=== PATIENT | female | born 1935 | race Caucasian/White ===

== ENCOUNTER → 2016-07-28 | Outpatient (CLI) | payer MEDICARE, OTHER ==
[2016-07-28 10:06] LABS: CH 31.6; CHCM 33.8; HCT 42.8 % (34.0-46.0); HDW 2.48; HGB 14.4 gm/dL (11.4-16.0); MCH 31.5 pg (25.0-35.0); MCHC 33.6 g/dL (31.0-37.0); MCV 93.9 fL (80.0-100.0); Mean Platelet Volume 7.5; RBC 4.56 m/uL (3.80-5.40); RDW 12.9 % (11.5-15.5); WBC 8.6 k/uL (3.8-10.6)
[2016-07-28 10:12] LABS: Appearance,Urine Clear (Clear); Bacteria,Urine Rare /hpf; Bilirubin,Urine Negative (Negative); Glucose,Urine (UA) Negative (Negative); Ketones,Urine 1+ (Negative); Leukocyte Esterase,Urine Negative (Negative); Mucus,Urine Rare /hpf; Nitrite,Urine Negative (Negative); PH, Urine 5.5 (5.0-8.0); Particle Count 5479; Protein,Urine 1+ (Negative); RBC,Urine 1 /hpf (0-5); Specific Gravity,Urine 1.017 (1.001-1.035); Squamous Epithelial Cell,Urine 1 /hpf (0-4); UA Billing (MACRO vs. MICRO) MICRO; WBC,Urine 2 /hpf (0-5)
[2016-07-28 12:33] LABS: Hemoglobin A1C 6.2 % (4.2-6.1)
[2016-07-28 12:50] LABS: ALT 30 U/L (9-52); AST 24 U/L (14-36); Alkaline Phosphatase 94 U/L (38-126); Anion Gap 10 mmol/L; Blood Urea Nitrogen 14 mg/dL (7-17); Calcium 9.4 mg/dL (8.4-10.2); Carbamazepine (Tegretol) <3.0 ug/mL; Carbon Dioxide 28 mmol/L (22-30); Chloride 101 mmol/L (98-107); Cholesterol 218 mg/dL (<200); Glucose 141 mg/dL (74-99); HDL Cholesterol 53 mg/dL (40-60); Non-African American GFR(MDRD) >60 (>60 ml/min/1.73 sqM); Potassium 4.7 mmol/L (3.5-5.1); Sodium 139 mmol/L (137-145); Total Bilirubin 0.6 mg/dL (0.2-1.3); Triglycerides 162 mg/dL (<150)
== END | disposition home or self-care (01) ==
LOC: LABWHC1 09:28
PROVIDERS: ATTEND Family Medicine
DX: Z00.01 Encounter for general adult medical examination with abnormal findings (principal); E11.9 Type 2 diabetes mellitus without complications; R56.9 Unspecified convulsions
CPT/HCPCS: 36415; 80053; 80061; 80156; 81001; 82043; 82306; 83036; 84443; 85027

== ENCOUNTER 2016-08-10 06:55 | Day surgery (SDC) | payer MEDICARE, OTHER ==
[2016-08-05 14:17] VITALS: BMI 25.7
[~2016-08-10 06:55] MED LIST: LACTATED RINGERS 1,000 ML IV SCH
[2016-08-10 07:41] LABS: Glucose,Whole Blood 113 mg/dL (75-99)
[2016-08-10 07:51] VITALS: RESP 16; TEMP 97.5
[2016-08-10] MEDS ORDERED: LIDOCAINE 1% INJ 10MG/ML (20 ML MDV) ONE (08:03)
[2016-08-10] MEDS ORDERED: PROPOFOL 10 MG/ML 20 ML VIAL IV ONE (08:03)
--- NOTE | 2016-08-10 08:17 | P.PCN ---
Date of Procedure: 08/10/16 Procedure(s) Performed: BRIEF HISTORY: Patient is a 80-year-old, pleasant, white female, scheduled for an upper endoscopy with possible dilation as a part of evaluation of progressive dysphagia to solids for the last several months she had an upper endoscopy in April 2015 for an esophageal foreign body impaction. Since then her symptoms have been progressively getting worse. PROCEDURE PERFORMED: Esophagogastroduodenoscopy with biopsy and dilation. PREOPERATIVE DIAGNOSIS: Progressive dysphagia to solids. IV sedation per anesthesia. PROCEDURE: After informed consent was obtained, the patient was brought into the endoscopy unit. IV conscious sedation was administered by Anesthesia under continuous monitoring. Initially the Olympus GIF-140 video endoscope was inserted into the mouth. Esophagus intubated without any difficulty. It was gradually advanced into the distal esophagus where a tight stricture was encountered and the scope could not be advanced to the cecum area. At this time I proceeded with balloon dilation using 10-12 mm TTS balloon for total of 90 seconds in a sequential fashion. Following this I was able to advance the scope into the stomach and duodenum and carefully examined. The bulb and the second part of the duodenum appeared normal. The scope at this time was withdrawn to the stomach, adequately insufflated with air, and upon careful examination, mucosa of the antrum, multiple scattered erosions and diffuse gastritis and biopsies were done from this area. The body, cardia and the fundus appeared normal. The scope was then withdrawn into the esophagus. The GE junction was located at 39 cm from the incisors. There was some oozing at the site of dilation with the superficial mucosal tear noted. The rest of the esophagus appeared normal. There were no erosions or ulcerations seen and the patient tolerated the procedure well. IMPRESSION: 1. Distal esophageal stricture status post balloon dilation using 10-12 mm TTS balloon as described above. 2. Moderate antral gastritis. RECOMMENDATIONS: The findings of this examination were discussed with the patient as well as a family. She was advised to be on a clear liquid diet today. Continue on Prilosec 20 mg daily and follow antireflux measures. She' ll be seen in office in 3-4 months.
[2016-08-10 08:47] VITALS: BP 156/88; PULSE 87
[2016-08-10 08:58] LABS: Glucose,Whole Blood 108 mg/dL (75-99)
--- NOTE | 2016-08-18 09:52 | CDI ---
Dr. Aylin Sanchez, Due to new rules about charging for conscious sedation, we noted conflicting information about type of sedation between your procedure note (stating IV CONSCIOUS sedation under Procedure heading) and Anesthesia Record which states Unconscious sedation. Because the word CONSCIOUS now has a different meaning for billing, we need you to stop dictating conscious sedation when Anesthesia is involved on your cases. FOR THIS CASE, WE NEED YOU TO DO ADDENDUM TO YOUR PROCED NOTE THAT SAYS "Unconscious" SEDATION instead of CONSCIOUS SEDATION. Thank you chago much for your assistance with this important billing compliance documentation issue. Sincerely, Wilian Jarrett--facialist Frances Veronica MBA, LEGAL STENOGRAPHER, [facility] Stave Cutting Supervisor, Tk Dominguez [phone] [facility] HOSPITALBetty
--- NOTE | 2016-09-28 11:50 | OP ---
ADDENDUM: DATE OF SERVICE: 08/10/2016 SURGEON: SAULO ORTIZ DO HANDBAG DESIGNER: PREOPERATIVE DIAGNOSIS: POSTOPERATIVE DIAGNOSIS: OPERATION: ANESTHESIA: ESTIMATED BLOOD LOSS: SPECIMENS REMOVED: COMPLICATIONS: OPERATIVE FINDINGS: DESCRIPTION OF PROCEDURE: General anesthesia was utilized instead of IV conscious sedation.
== END 2016-08-10 09:00 | disposition home or self-care (01) ==
LOC: ORWHC2ENDO 06:55
PROVIDERS: ATTEND Internal Medicine Gastroenterology
DX: K22.2 Esophageal obstruction (principal); K21.9 Gastro-esophageal reflux disease without esophagitis; K25.9 Gastric ulcer, unspecified as acute or chronic, without hemorrhage or perforation; K29.50 Unspecified chronic gastritis without bleeding; I10 Essential (primary) hypertension; E78.5 Hyperlipidemia, unspecified; I48.91 Unspecified atrial fibrillation; E11.9 Type 2 diabetes mellitus without complications; E07.9 Disorder of thyroid, unspecified; R56.9 Unspecified convulsions; Z88.0 Allergy status to penicillin; Z88.1 Allergy status to other antibiotic agents; Z88.2 Allergy status to sulfonamides; Z79.01 Long term (current) use of anticoagulants; Z79.84 Long term (current) use of oral hypoglycemic drugs; Z79.899 Other long term (current) drug therapy
CPT/HCPCS: 88305; 88342; 43239; 43249; J2001; J2704; C1726

== ENCOUNTER 2017-10-13 07:17 | Day surgery (SDC) | payer MEDICARE, OTHER ==
[2017-10-12 08:33] VITALS: BMI 26.6
[2017-10-13 07:57] LABS: Glucose,Whole Blood 96 mg/dL (75-99)
[2017-10-13 08:07] VITALS: RESP 18; TEMP 97.4
[2017-10-13] MEDS ORDERED: PROPOFOL 10 MG/ML 20 ML VIAL IV ONE (08:11)
--- NOTE | 2017-10-13 08:23 | P.PCN ---
Date of Procedure: 10/13/17 Procedure(s) Performed: BRIEF HISTORY: Patient is a 81-year-old, pleasant, white white female, scheduled for an upper endoscopy as a part of evaluation of dysphagia to solids for the last few weeks duration. She had an episode of acute for dysphagia in 2014 the patient she underwent an upper endoscopy with a balloon dilation. Presently remains on Prilosec 20 mg daily.. PROCEDURE PERFORMED: Esophagogastroduodenoscopy with balloon dilation. PREOPERATIVE DIAGNOSIS: History of esophageal stricture/progressive dysphagia to solids. IV sedation per anesthesia. PROCEDURE: After informed consent was obtained, the patient was brought into the endoscopy unit. IV sedation was administered by Anesthesia under continuous monitoring. Initially the Olympus GIF-140 video endoscope was inserted into the mouth. Esophagus intubated without any difficulty. It was gradually advanced into the distal esophagus with a was a esophagus which are identified. stomach and duodenum and carefully examined. The bulb and the second part of the duodenum appeared normal. The scope at this time was withdrawn to the stomach, adequately insufflated with air, and upon careful examination, mucosa of the antrum, body, cardia and the fundus appeared normal. The scope was then withdrawn into the esophagus. Small hiatal hernia noted. The GE junction was located at 39 cm from the incisors. There was a circumferential stricture noted in the distal esophagus at the GE junction and this was dilated using 10- 12 mm balloon for total of 90 seconds in a sequential fashion.. Dilation there was a superficial mucosal tear with some oozing identified at the site of dilation. The rest of the esophagus appeared normal. There were no erosions or ulcerations seen and the patient tolerated the procedure well. IMPRESSION: 1. Distal esophageal stricture status post balloon dilation using 10-12 mm TTS balloon as described above. 2. Small Hiatal hernia.. RECOMMENDATIONS: The findings of this examination were discussed with the patient as well as her family. She will remain on a clear liquid diet today. She will continue with Prilosec 20 mg daily and follow antireflux measures. She 'll be seen in office in 6 weeks..
[2017-10-13 08:43] VITALS: PULSE 60
[2017-10-13 08:44] VITALS: BP 130/63
== END 2017-10-13 09:15 | disposition home or self-care (01) ==
LOC: ORWHC2ENDO 07:17
PROVIDERS: ATTEND Internal Medicine Gastroenterology
DX: K22.2 Esophageal obstruction (principal); K44.9 Diaphragmatic hernia without obstruction or gangrene; I10 Essential (primary) hypertension; E78.5 Hyperlipidemia, unspecified; I48.91 Unspecified atrial fibrillation; E11.9 Type 2 diabetes mellitus without complications; K21.9 Gastro-esophageal reflux disease without esophagitis; R56.9 Unspecified convulsions; Z79.01 Long term (current) use of anticoagulants; Z79.84 Long term (current) use of oral hypoglycemic drugs; Z79.899 Other long term (current) drug therapy; Z88.1 Allergy status to other antibiotic agents; Z88.0 Allergy status to penicillin; Z88.2 Allergy status to sulfonamides; Z88.8 Allergy status to other drugs, medicaments and biological substances
CPT/HCPCS: 43249; J2704; C1726

== ENCOUNTER 2018-05-04 07:31 | Observation (INO) | payer MEDICARE, OTHER ==
[2018-05-04] MEDS ORDERED: SODIUM CHLORIDE 0.9% 1,000 ML IV STA (07:42)
[2018-05-04] MEDS ORDERED: ASPIRIN 81 MG PO STA (07:42)
[2018-05-04] MEDS ORDERED: NITROGLYCERIN OINT 1 INCH/GM PACKET TOPICAL STA (07:42)
--- NOTE | 2018-05-04 07:46 | ED ---
General Adult HPI - General Chief complaint: Chest Pain Stated complaint: CHest pain Time Seen by Provider: 05/04/18 07:34 Source: patient, RN notes reviewed Mode of arrival: EMS Limitations: no limitations - History of Present Illness Initial comments: Patient is a pleasant 82-year-old female presenting to the emergency Department with chest discomfort. Onset was this morning. Symptoms have improved and are now near resolved. Discomfort is only mild at this point. Patient states discomfort felt like pressure. No radiation. There is mild dyspnea. No nausea or diaphoresis. No history of similar symptoms previously. - Related Data Home Medications Medication Instructions Recorded Confirmed Apixaban [Eliquis] 2.5 mg PO BID 10/26/13 05/04/18 Bimatoprost [Lumigan .01% Ophth 5 ml BOTH EYES HS 10/26/13 05/04/18 Soln] Brimonidine Tartrate/Timolol 5 ml BOTH EYES BID 10/26/13 05/04/18 [Combigan 0.2%/0.5% Ophth Soln] LORazepam [Ativan] 1 mg PO DAILY PRN 10/26/13 05/04/18 Lisinopril [Prinivil] 10 mg PO QAM 10/26/13 05/04/18 metFORMIN HCL [Glucophage] 500 mg PO BID 10/26/13 05/04/18 amLODIPine [Norvasc] 5 mg PO QAM 11/26/14 05/04/18 lamoTRIgine [LaMICtal] 200 mg PO BID 11/26/14 05/04/18 Nadolol 20 mg PO HS 01/01/15 05/04/18 Pravastatin Sodium [Pravachol] 40 mg PO QAM 01/01/15 05/04/18 Calcium Carbonate [Calcium] 600 mg PO DAILY 08/05/16 05/04/18 Cholecalciferol [Vitamin D3] 1,000 unit PO DAILY 08/05/16 05/04/18 OXcarbazepine [Trileptal] 150 mg PO BID 10/12/17 05/04/18 Sertraline [Zoloft] 100 mg PO DAILY 05/04/18 05/04/18 Previous Rx's Medication Instructions Recorded Omeprazole [PriLOSEC] 20 mg PO AC-BRKFST #30 cap 05/11/15 Allergies Allergy/AdvReac Type Severity Reaction Status Date / Time ciprofloxacin [From Cipro] Allergy Unknown Verified 05/04/18 08:16 ciprofloxacin HCl Allergy Unknown Verified 05/04/18 08:16 [From Cipro] metoprolol Allergy Unknown Verified 05/04/18 08:16 Penicillins Allergy Unknown Verified 05/04/18 08:16 Sulfa (Sulfonamide Allergy Unknown Verified 05/04/18 08:16 Antibiotics) Review of Systems ROS Statement: Those systems with pertinent positive or pertinent negative responses have been documented in the HPI. ROS Other: All systems not noted in ROS Statement are negative. Constitutional: Denies: fever Eyes: Denies: eye pain ENT: Denies: ear pain Respiratory: Denies: cough Cardiovascular: Reports: chest pain Endocrine: Denies: fatigue Gastrointestinal: Denies: abdominal pain Genitourinary: Denies: dysuria Musculoskeletal: Denies: back pain Skin: Denies: rash Neurological: Denies: weakness Past Medical History Past Medical History: Atrial Fibrillation, Chest Pain / Angina, Diabetes Mellitus, GERD/Reflux, Hyperlipidemia, Hypertension, Seizure Disorder Additional Past Medical History / Comment(s): Glaucoma. LAST SEIZURE JUN 2016, SEIZURES MANIFEST IN HER SLEEP AND SHE KNOWS WHEN SHE HAS HAD ONE SHE CHEWS THE SIDE OF HER MOUTH, ETIOLOGY UNKNOWN. HX dysphagia History of Any Multi-Drug Resistant Organisms: None Reported Past Surgical History: Cholecystectomy, Hysterectomy Additional Past Surgical History / Comment(s): Thyroid nodules removed. АНДРЕЙ cataract. RIGHT ANKLE ORIF. EGD WITH DILATION MULT TIMES Past Anesthesia/Blood Transfusion Reactions: No Reported Reaction Past Psychological History: Anxiety, Depression Smoking Status: Never smoker Past Alcohol Use History: None Reported Past Drug Use History: None Reported - Past Family History Brother(s) Family Medical History: Cancer Sister(s) Family Medical History: Cancer Additional Family Medical History / Comment(s): MULTIPLE SISTERS WITH CA Father Family Medical History: Diabetes Mellitus Additional Family Medical History / Comment(s): leg amp Mother Family Medical History: AFIB General Exam Limitations: no limitations General appearance: alert, in no apparent distress Head exam: Present: atraumatic Eye exam: Present: normal appearance Neck exam: Present: normal inspection Respiratory exam: Present: normal lung sounds bilaterally. Absent: chest wall tenderness Cardiovascular Exam: Present: regular rate, irregular rhythm Expanded Peripheral pulses: 2+: Radial (R), Radial (L), Dorsalis Pedis (R), Dorsalis Pedis (L) GI/Abdominal exam: Present: soft. Absent: tenderness Extremities exam: Present: normal inspection. Absent: pedal edema, calf tenderness Neurological exam: Present: alert Psychiatric exam: Present: normal affect, normal mood Skin exam: Present: normal color Course Vital Signs 05/04/18 05/04/18 07:33 07:55 Temperature 98.5 F Pulse Rate 67 Pulse Rate [ 81 Right Supine Pulse Oximetery ] Respiratory 20 Rate Blood Pressure 170/85 O2 Sat by Pulse 96 Oximetry EKG Findings - EKG Comments: EKG Findings:: A. fib with a rate of 87. QRS 92. QT 292. QTC 471. Normal axis. Normal QRS. Nonspecific ST-T. Medical Decision Making - Medical Decision Making Patient reevaluated and resting comfortably in bed. Symptoms have near resolved. Patient updated on results and plan. Dr. Ledesma has been paged for Dr. Hoyt. - Lab Data Result diagrams: 05/04/18 07:48 05/04/18 07:48 Lab Results 05/04/18 05/04/18 05/04/18 Range/Units 07:48 07:48 07:48 WBC 14.4 H (3.8-10.6) k/uL RBC 4.74 (3.80-5.40) m/uL Hgb 14.3 (11.4-16.0) gm/dL Hct 43.2 (34.0-46.0) % MCV 91.2 (80.0-100.0) fL MCH 30.2 (25.0-35.0) pg MCHC 33.1 (31.0-37.0) g/dL RDW 13.3 (11.5-15.5) % Plt Count 312 (150-450) k/uL Neutrophils % 85 % Lymphocytes % 9 % Monocytes % 3 % Eosinophils % 1 % Basophils % 0 % Neutrophils # 12.3 H (1.3-7.7) k/uL Lymphocytes # 1.3 (1.0-4.8) k/uL Monocytes # 0.5 (0-1.0) k/uL Eosinophils # 0.2 (0-0.7) k/uL Basophils # 0.0 (0-0.2) k/uL PT (9.0-12.0) sec INR (<1.2) APTT (22.0-30.0) sec Sodium 140 (137-145) mmol/L Potassium 4.4 (3.5-5.1) mmol/L Chloride 102 (98-107) mmol/L Carbon Dioxide 27 (22-30) mmol/L Anion Gap 11 mmol/L BUN 13 (7-17) mg/dL Creatinine 0.66 (0.52-1.04) mg/dL Est GFR (CKD-EPI)AfAm >90 (>60 ml/min/1.73 sqM) Est GFR (CKD-EPI)NonAf 82 (>60 ml/min/1.73 sqM) Glucose 179 H (74-99) mg/dL Calcium 9.5 (8.4-10.2) mg/dL Magnesium 2.1 (1.6-2.3) mg/dL Total Bilirubin 0.6 (0.2-1.3) mg/dL AST 23 (14-36) U/L ALT 25 (9-52) U/L Alkaline Phosphatase 116 (38-126) U/L Total Creatine Kinase 28 L (30-135) U/L CK-MB (CK-2) 0.4 (0.0-2.4) ng/mL CK-MB (CK-2) Rel Index 1.4 Troponin I <0.012 (0.000-0.034) ng/mL Total Protein 7.4 (6.3-8.2) g/dL Albumin 4.4 (3.5-5.0) g/dL 05/04/18 Range/Units 07:48 WBC (3.8-10.6) k/uL RBC (3.80-5.40) m/uL Hgb (11.4-16.0) gm/dL Hct (34.0-46.0) % MCV (80.0-100.0) fL MCH (25.0-35.0) pg MCHC (31.0-37.0) g/dL RDW (11.5-15.5) % Plt Count (150-450) k/uL Neutrophils % % Lymphocytes % % Monocytes % % Eosinophils % % Basophils % % Neutrophils # (1.3-7.7) k/uL Lymphocytes # (1.0-4.8) k/uL Monocytes # (0-1.0) k/uL Eosinophils # (0-0.7) k/uL Basophils # (0-0.2) k/uL PT 9.9 (9.0-12.0) sec INR 0.9 (<1.2) APTT 24.6 (22.0-30.0) sec Sodium (137-145) mmol/L Potassium (3.5-5.1) mmol/L Chloride (98-107) mmol/L Carbon Dioxide (22-30) mmol/L Anion Gap mmol/L BUN (7-17) mg/dL Creatinine (0.52-1.04) mg/dL Est GFR (CKD-EPI)AfAm (>60 ml/min/1.73 sqM) Est GFR (CKD-EPI)NonAf (>60 ml/min/1.73 sqM) Glucose (74-99) mg/dL Calcium (8.4-10.2) mg/dL Magnesium (1.6-2.3) mg/dL Total Bilirubin (0.2-1.3) mg/dL AST (14-36) U/L ALT (9-52) U/L Alkaline Phosphatase (38-126) U/L Total Creatine Kinase (30-135) U/L CK-MB (CK-2) (0.0-2.4) ng/mL CK-MB (CK-2) Rel Index Troponin I (0.000-0.034) ng/mL Total Protein (6.3-8.2) g/dL Albumin (3.5-5.0) g/dL Disposition Clinical Impression: Chest pain Disposition: ADMITTED IP TO THIS HOSP Is patient prescribed a controlled substance at d/c from ED?: No Referrals: Andry Hoyt DO [Primary Care Provider] - 1-2 days Decision Time: 09:42
[2018-05-04 08:09] LABS: Basophils % (A) 0 %; Eosinophils # (A) 0.2 k/uL (0-0.7); Eosinophils % (A) 1 %; HCT 43.2 % (34.0-46.0); HGB 14.3 gm/dL (11.4-16.0); Lymphocytes # (A) 1.3 k/uL (1.0-4.8); Lymphocytes % (A) 9 %; MCH 30.2 pg (25.0-35.0); MCHC 33.1 g/dL (31.0-37.0); MCV 91.2 fL (80.0-100.0); Mean Platelet Volume 7.4; Monocytes # (A) 0.5 k/uL (0-1.0); Monocytes % (A) 3 %; Neutrophils # (A) 12.3 k/uL (1.3-7.7); Neutrophils % (A) 85 %; Platelet Count 312 k/uL (150-450); RBC 4.74 m/uL (3.80-5.40); RDW 13.3 % (11.5-15.5); WBC 14.4 k/uL (3.8-10.6)
[2018-05-04 08:20] LABS: INR 0.9 (<1.2); Partial Thromboplastin Time 24.6 sec (22.0-30.0); Prothrombin Time 9.9 sec (9.0-12.0)
[2018-05-04 08:21] LABS: ALT 25 U/L (9-52); AST 23 U/L (14-36); Albumin 4.4 g/dL (3.5-5.0); Alkaline Phosphatase 116 U/L (38-126); Anion Gap 11 mmol/L; Blood Urea Nitrogen 13 mg/dL (7-17); Calcium 9.5 mg/dL (8.4-10.2); Carbon Dioxide 27 mmol/L (22-30); Chloride 102 mmol/L (98-107); Glucose 179 mg/dL (74-99); Magnesium 2.1 mg/dL (1.6-2.3); Potassium 4.4 mmol/L (3.5-5.1); Sodium 140 mmol/L (137-145); Total Bilirubin 0.6 mg/dL (0.2-1.3); Total Protein 7.4 g/dL (6.3-8.2)
--- NOTE | 2018-05-04 08:30 | XR ---
EXAMINATION TYPE: XR chest 2V DATE OF EXAM: 05/04/2018 COMPARISON: Prior chest x-ray 05/11/2015 HISTORY: Chest pain TECHNIQUE: Frontal and lateral views of the chest are obtained. FINDINGS: Heart is enlarged and stable, may be accentuated by rotation. There are overlying cardiac leads. No evident airspace disease, pneumothorax, or pleural effusion. Pulmonary vascularity and clare are unchanged. IMPRESSION: Stable cardiomegaly.
[2018-05-04 08:33] LABS: Creatine Kinase 28 U/L (30-135)
[2018-05-04 08:46] LABS: Creatine Kinase MB 0.4 ng/mL (0.0-2.4); Troponin I <0.012 ng/mL (0.000-0.034)
[2018-05-04] MEDS ORDERED: NITROGLYCERIN SL TABS 0.4 MG TAB SUBLINGUAL PRN (09:42)
[2018-05-04] MEDS ORDERED: LORazepam 1 MG TAB PO PRN (11:07)
[2018-05-04] MEDS ORDERED: OXcarbazepine 150 MG TAB PO SCH (11:15)
[2018-05-04] MEDS ORDERED: TIMOLOL 0.5% OPHTH DROPS 5 ML BTL BOTH EYES SCH (11:15)
[2018-05-04] MEDS ORDERED: BRIMONIDINE TARTRATE 0.2% DROPS 5 ML BTL BOTH EYES SCH (11:15)
[2018-05-04] MEDS ORDERED: LISINOPRIL 10 MG TAB PO SCH (11:15)
[2018-05-04] MEDS ORDERED: PRAVASTATIN SODIUM 40 MG TAB PO SCH (11:15)
[2018-05-04] MEDS ORDERED: PANTOPRAZOLE 40 MG TABLET PO SCH (11:15)
[2018-05-04] MEDS ORDERED: lamoTRIgine 100 MG TAB PO SCH (11:15)
[2018-05-04] MEDS ORDERED: metFORMIN 500 MG TAB PO SCH (11:15)
[2018-05-04] MEDS ORDERED: SERTRALINE 100 MG TAB PO SCH (11:15)
[2018-05-04] MEDS ORDERED: amLODIPine 5 MG TAB PO SCH (11:15)
[2018-05-04] MEDS ORDERED: APIXABAN 2.5 MG TABLET PO SCH (11:15)
[2018-05-04] MEDS ORDERED: NITROGLYCERIN OINT 1 INCH/GM PACKET TOPICAL SCH (12:00)
[2018-05-04 12:25] LABS: Creatine Kinase 25 U/L (30-135)
[2018-05-04 12:36] LABS: Creatine Kinase MB 0.3 ng/mL (0.0-2.4); Troponin I <0.012 ng/mL (0.000-0.034)
--- NOTE | 2018-05-04 14:44 | P.CRDCN ---
History of Present Illness History of present illness: This is a pleasant 82-year-old female past medical history significant for chronic atrial fibrillation on termite inspector anticoagulation, hypertension, dyslipidemia and diabetes mellitus. She underwent cardiac catheterization in 2007 that showed no evidence of obstructive disease. She follows with Dr. Mcclure in the office. We have been asked to see her in consultation for chest pain. She states she woke up around 4:30 this morning with a discomfort in the midsternal region no radiation to the arm, back, neck or jaw discomfort is described as a pressure-like sensation associated with very mild shortness of breath and she denies palpitations, dizziness, nausea, vomiting or diaphoresis. The symptoms resolved after about 15 minutes. Upon arrival to the emergency department she was noted to be in atrial fibrillation with controlled ventricular response heart rate was 87. Chest x-ray obtained is negative for an acute cardiopulmonary process. She is seen and examined resting comfortably in bed with her daughter at the bedside. She states she has an appointment coming up with Dr. Mcclure June. She states she did go to physical therapy yesterday for the first time feels as though she may have overdone it. Laboratory data reviewed, WBC 14.4, hemoglobin 14.3, platelets 312, sodium 140, potassium 4.4, creatinine 0.66, magnesium 2.1, cardiac enzymes negative 2. Current cardiac medications include nadolol 20 mg daily, amlodipine 5 mg daily, pravastatin 40 mg daily, lisinopril 10 mg daily, Eliquis 2.5 mg twice a day. Most recent echocardiogram obtained in the office May 2016 reveals preserved left ventricular systolic function with ejection fraction 55%, dilated left atrium and dilated right atrium. Most recent stress test performed in the office in 2013 with a Lexiscan stress test was negative for reversible cardiac ischemia. At the time of my exam: CONSTITUTIONAL: Denies fever. Denies chills. EYES: Denies blurred vision. Denies vision changes. Denies eye pain. EARS, NOSE, MOUTH & THROAT: Denies headache. Denies sore throat. Denies ear pain. CARDIOVASCULAR: Denies chest pain. Denies shortness of breath. Denies orthopnea. Denies PND. Denies palpitations. RESPIRATORY: Denies cough. GASTROINTESTINAL: Denies abdominal pain. Denies diarrhea. Denies constipation. Denies nausea. Denies vomiting. MUSCULOSKELETAL: Denies myalgias. INTEGUMENTARY: Denies pruitis. Denies rash. NEUROLOGIC: Denies numbness. Denies tingling. Denies weakness. PSYCHIATRIC: Denies anxiety. Denies depression. ENDOCRINE: Denies fatigue. Denies weight change. Denies polydipsia. Denies polyurina. GENITOURINARY: Denies burning, hematuria or urgency with micturation. HEMATOLOGIC: Denies history of anemia. Denies bleeding. Blood pressure 120/63 heart rate 61 afebrile maintaining oxygen saturation on room air GENERAL: This is a 82-year-old female in no apparent distress at the time of my examination. HEENT: Head is atraumatic, normocephalic. Pupils are equal, round. Sclerae anicteric. Conjunctivae are clear. Mucous membranes of the mouth are moist. Neck is supple. There is no jugular venous distention. No carotid bruit is heard. LUNGS: Clear to auscultation no wheezes, rales or rhonchi. No chest wall tenderness is noted on palpation or with deep breathing. HEART: Irregular rate and rhythm without murmurs, rubs or gallops. S1 and S2 heard. ABDOMEN: Soft, nontender. Bowel sounds are heard. No organomegaly noted. EXTREMITIES: No evidence of peripheral edema and no calf tenderness noted. VASCULAR: Radial and dorsalis pedis pulses palpated, no evidence of clubbing. NEUROLOGIC: Patient is awake, alert and oriented x3. ASSESSMENT Chest pain, atypical. An acute coronary event has been ruled out with no EKG evidence of ischemia and negative cardiac enzymes. Hypertension Dyslipidemia Chronic persistent atrial fibrillation on long-term anticoagulation with controlled ventricular response Diabetes mellitus Leukocytosis PLAN Obtain 2-D echocardiogram and Doppler study to assess cardiac structure and function. Increase activity and assess her further symptoms of chest discomfort. Symptoms most likely muscular related to new physical therapy. If no further symptoms of chest discomfort she is stable from a cardiac perspective. We recommended to the patient and her daughter that she see Dr. Mcclure next week. Thank you kindly for this consultation. Nurse Practitioner note has been reviewed, I agree with a documented findings and plan of care. Patient was seen and examined. Past Medical History Past Medical History: Atrial Fibrillation, Chest Pain / Angina, Diabetes Mellitus, Eye Disorder, GERD/Reflux, Hyperlipidemia, Hypertension, Seizure Disorder Additional Past Medical History / Comment(s): NIDDM type II, neuropathy bilateral feet, R arm numbness thought d/t cervical nerve pinched, dysphagia- not currently a problem, esophageal stricture, food impaction in esophagus, hiatal hernia, seizures in her sleep and bites inside of her cheeks-pt believes she had a seizure 05/03/18, bilateral glaucoma. History of Any Multi-Drug Resistant Organisms: None Reported Past Surgical History: Cholecystectomy, Hysterectomy, Orthopedic Surgery Additional Past Surgical History / Comment(s): EGD and multiple dilations, EGD with foreign body removed, colonoscopy, hemorrhoidectomy, bilateral cataract removal/lens implants, thyroid nodules removed, R ankle ORIF. Past Anesthesia/Blood Transfusion Reactions: No Reported Reaction Past Psychological History: Anxiety, Depression Additional Psychological History / Comment(s): PT LIVES AT HOME WITH DAUGHTER VALERI & SON-IN LAW. SHE HAS A CANE AND A WALKER. SHE NO LONGER DRIVES D/T SEIZURES, HER ETHAN TAKES HER TO APPTS. Smoking Status: Never smoker Past Alcohol Use History: None Reported Past Drug Use History: None Reported - Past Family History Brother(s) Family Medical History: Cancer Sister(s) Family Medical History: Cancer Additional Family Medical History / Comment(s): MULTIPLE SISTERS WITH CA Father Family Medical History: Diabetes Mellitus Additional Family Medical History / Comment(s): leg amp Mother Family Medical History: AFIB Medications and Allergies Home Medications Medication Instructions Recorded Confirmed Type Apixaban [Eliquis] 2.5 mg PO BID 10/26/13 05/04/18 History Bimatoprost [Lumigan .01% Ophth 5 ml BOTH EYES HS 10/26/13 05/04/18 History Soln] Brimonidine Tartrate/Timolol 5 ml BOTH EYES BID 10/26/13 05/04/18 History [Combigan 0.2%/0.5% Ophth Soln] LORazepam [Ativan] 1 mg PO DAILY PRN 10/26/13 05/04/18 History Lisinopril [Prinivil] 10 mg PO QAM 10/26/13 05/04/18 History metFORMIN HCL [Glucophage] 500 mg PO BID 10/26/13 05/04/18 History amLODIPine [Norvasc] 5 mg PO QAM 11/26/14 05/04/18 History lamoTRIgine [LaMICtal] 200 mg PO BID 11/26/14 05/04/18 History Nadolol 20 mg PO HS 01/01/15 05/04/18 History Pravastatin Sodium [Pravachol] 40 mg PO QAM 01/01/15 05/04/18 History Omeprazole [PriLOSEC] 20 mg PO AC-BRKFST #30 cap 05/11/15 05/04/18 Rx Calcium Carbonate [Calcium] 600 mg PO DAILY 08/05/16 05/04/18 History Cholecalciferol [Vitamin D3] 1,000 unit PO DAILY 08/05/16 05/04/18 History OXcarbazepine [Trileptal] 150 mg PO BID 10/12/17 05/04/18 History Sertraline [Zoloft] 100 mg PO DAILY 05/04/18 05/04/18 History Allergies Allergy/AdvReac Type Severity Reaction Status Date / Time ciprofloxacin [From Cipro] Allergy Unknown Verified 05/04/18 08:16 ciprofloxacin HCl Allergy Unknown Verified 05/04/18 08:16 [From Cipro] metoprolol Allergy Unknown Verified 05/04/18 08:16 Penicillins Allergy Unknown Verified 05/04/18 08:16 Sulfa (Sulfonamide Allergy Unknown Verified 05/04/18 08:16 Antibiotics) Physical Exam Vitals: Vital Signs Temp Pulse Pulse Resp BP Pulse Ox 05/04/18 14:00 61 20 120/63 98 05/04/18 13:00 64 24 136/83 98 05/04/18 12:00 68 16 129/80 96 05/04/18 11:00 68 11 L 151/85 98 05/04/18 10:00 60 18 130/73 98 05/04/18 09:00 59 L 17 126/83 97 05/04/18 08:00 74 14 150/93 97 05/04/18 07:55 81 05/04/18 07:33 98.5 F 67 20 170/85 96 Intake and Output 05/03/18 05/04/18 05/04/18 22:59 06:59 14:59 Other: Weight 70.76 kg Results 05/04/18 07:48 05/04/18 07:48 Cardiac Enzymes 05/04/18 05/04/18 05/04/18 Range/Units 07:48 07:48 11:26 AST 23 (14-36) U/L CK-MB (CK-2) 0.4 0.3 (0.0-2.4) ng/mL Troponin I <0.012 <0.012 (0.000-0.034) ng/mL Coagulation 05/04/18 Range/Units 07:48 PT 9.9 (9.0-12.0) sec APTT 24.6 (22.0-30.0) sec CBC 05/04/18 Range/Units 07:48 WBC 14.4 H (3.8-10.6) k/uL RBC 4.74 (3.80-5.40) m/uL Hgb 14.3 (11.4-16.0) gm/dL Hct 43.2 (34.0-46.0) % Plt Count 312 (150-450) k/uL Comprehensive Metabolic Panel 05/04/18 Range/Units 07:48 Sodium 140 (137-145) mmol/L Potassium 4.4 (3.5-5.1) mmol/L Chloride 102 (98-107) mmol/L Carbon Dioxide 27 (22-30) mmol/L BUN 13 (7-17) mg/dL Creatinine 0.66 (0.52-1.04) mg/dL Glucose 179 H (74-99) mg/dL Calcium 9.5 (8.4-10.2) mg/dL AST 23 (14-36) U/L ALT 25 (9-52) U/L Alkaline Phosphatase 116 (38-126) U/L Total Protein 7.4 (6.3-8.2) g/dL Albumin 4.4 (3.5-5.0) g/dL Current Medications Generic Name Dose Route Start Last Admin Trade Name Freq PRN Reason Stop Dose Admin Amlodipine Besylate 5 mg 05/04/18 11:15 05/04/18 11:56 Norvasc PO 5 mg QAM LEONARD Administration Apixaban 2.5 mg 05/04/18 11:15 05/04/18 11:57 Eliquis PO 2.5 mg BID LEONARD Administration Aspirin 325 mg 05/05/18 09:00 Aspirin PO DAILY [facility] Brimonidine Tartrate 1 drops 05/04/18 11:15 05/04/18 11:58 Alphagan P 0.2% Ophth Soln BOTH EYES 1 drops BID LEONARD Administration Sodium Chloride 1,000 mls @ 100 mls/hr 05/04/18 07:42 05/04/18 07:51 Saline 0.9% IV 05/04/18 17:41 100 mls/hr .Q10H STA Administration Lamotrigine 200 mg 05/04/18 11:15 05/04/18 11:56 Lamictal PO 200 mg BID LEONARD Administration Latanoprost 1 drops 05/04/18 21:00 Xalatan 0.005% BOTH EYES HS LEONARD Lisinopril 10 mg 05/04/18 11:15 05/04/18 11:57 Zestril PO 10 mg QAM LEONARD Administration Lorazepam 1 mg 05/04/18 11:07 Ativan PO DAILY PRN Anxiety Metformin HCl 500 mg 05/04/18 11:15 05/04/18 11:56 Glucophage PO 500 mg BID LEONARD Administration Nadolol 20 mg 05/04/18 21:00 Corgard PO HS LEONARD Nitroglycerin 1 inch 05/04/18 12:00 05/04/18 11:58 Nitro-Bid Oint TOPICAL 1 inch Q6HR LEONARD Administration Nitroglycerin 0.4 mg 05/04/18 09:42 Nitrostat SUBLINGUAL Q5M PRN Chest Pain Oxcarbazepine 150 mg 05/04/18 11:15 05/04/18 11:57 Trileptal PO 150 mg BID LEONARD Administration Pantoprazole Sodium 40 mg 05/04/18 11:15 05/04/18 11:56 Protonix PO 40 mg AC-BRKFST LEONARD Administration Pravastatin Sodium 40 mg 05/04/18 11:15 05/04/18 11:57 Pravachol PO 40 mg QAM LEONARD Administration Sertraline HCl 100 mg 05/04/18 11:15 05/04/18 11:57 Zoloft PO 100 mg DAILY LEONARD Administration Timolol Maleate 1 drops 05/04/18 11:15 05/04/18 11:58 Timoptic BOTH EYES 1 drops BID LEONARD Administration Intake and Output 05/03/18 05/04/18 05/04/18 22:59 06:59 14:59 Other: Weight 70.76 kg Patient Weight 05/05/18 06:59 Weight 70.76 kg 05/04/18 07:48 05/04/18 07:48
[2018-05-04 16:01] VITALS: BP 149/75; PULSE 63; RESP 18; TEMP 97.5
--- NOTE | 2018-05-04 17:20 | CT ---
EXAMINATION TYPE: CT chest angio for PE DATE OF EXAM: 05/04/2018 COMPARISON: None HISTORY: Chest heaviness, history of Afib. CT DLP: 243.8 mGycm Automated exposure control for dose reduction was used. CONTRAST: CT Chest for pulmonary embolism performed with with IV Contrast, patient injected with 100 mL of Isov ue 370. FINDINGS: There are 3-D post processed images. This 5 mm calcified granuloma in the right paraspinal right upper lobe. There is faint 5 mm low-densi ty nodule lateral left upper lobe. There is no evidence of a pulmonary mass. There is minimal reticul ar density at the posterior lung bases consistent with scarring and subsegmental atelectasis. There i s no pericardial effusion. There is no pleural effusion. Heart is slightly enlarged. Thoracic aorta s hows no evidence of aneurysm or dissection. There is no mediastinal adenopathy. There are no hilar ma sses. There is some spurring in the thoracic spine. There is old 10% depression superior endplate of T4 and T3 vertebral bodies.. I see no bony destructive process. There is normal contrast opacification of the pulmonary arteries. There are no filling defects. IMPRESSION: Cardiomegaly. Minimal scarring or subsegmental atelectasis at the lung bases. No evidence of pulmonar y embolism.
--- NOTE | 2018-05-04 17:49 | ECHOF ---
Referral Reason:cp MEASUREMENTS -------- HEIGHT: 165.1 cm WEIGHT: 70.8 kg BP: 129/80 RVIDd: 2.6 cm (< 3.3) IVSd: 1.2 cm (0.6 - 1.1) LVIDd: 3.6 cm (3.9 - 5.3) LVPWd: 1.5 cm (0.6 - 1.1) IVSs: 1.5 cm LVIDs: 3.1 cm LVPWs: 1.5 cm LA Diam: 4.8 cm (2.7 - 3.8) LAESV Index (A-L): 40.00 ml/m AV Cusp: 1.5 cm (1.5 - 2.6) MV EXCURSION: 19.089 mm (> 18.000) MV EF SLOPE: 125 mm/s (70 - 150) EPSS: 0.3 cm RAP: 5.00 mmHg RVSP: 24.33 mmHg FINDINGS -------- Atrial fibrillation. This was a technically adequate study. The left ventricular size is normal. Left ventricular wall thickness is normal. Overall left vent ricular systolic function is low-normal with, an EF between 50 - 55 %. The right ventricle is normal in size. LA is severely dilated >40 ml/m2 The right atrial size is normal. There is mild aortic valve sclerosis. There is no evidence of aortic regurgitation. Mild mitral annular calcification present. Mild mitral regurgitation is present. Mild tricuspid regurgitation present. Right ventricular systolic pressure is normal at < 35 mmHg. The right ventricular systolic pressure, as measured by Doppler, is 24.33mmHg. Trace/mild (physiologic) pulmonic regurgitation. The aortic root size is normal. There is a trivial pericardial effusion present. CONCLUSIONS -------- 1. Atrial fibrillation. 2. The left ventricular size is normal. 3. Left ventricular wall thickness is normal. 4. Overall left ventricular systolic function is low-normal with, an EF between 50 - 55 %. 5. LA is severely dilated >40 ml/m2 6. The right atrial size is normal. 7. There is mild aortic valve sclerosis. 8. Mild mitral annular calcification present. 9. Mild mitral regurgitation is present. 10. Mild tricuspid regurgitation present. 11. Right ventricular systolic pressure is normal at < 35 mmHg. 12. Trace/mild (physiologic) pulmonic regurgitation. 13. The aortic root size is normal. 14. There is a trivial pericardial effusion present. RETORT FURNACE HELPER: Sadie Lam RDCS
[2018-05-04] MEDS ORDERED: NADOLOL 20 MG TAB PO SCH (21:00)
[2018-05-04] MEDS ORDERED: LATANOPROST 0.005% OPHTH DROPS 2.5 ML BTL BOTH EYES SCH (21:00)
--- NOTE | 2018-05-04 22:39 | DS ---
DISCHARGE SUMMARY HISTORY AND PHYSICAL/DISCHARGE SUMMARY: DATE OF ADMISSION: May 04, 2018. DATE OF DISCHARGE: May 04. PRESENTING COMPLAINT: Chest heaviness. HISTORY OF PRESENTING COMPLAINT: A very pleasant 82-year-old patient of Dr. Hoyt. Chronic stable medical conditions include atrial fibrillation, diabetes with peripheral neuropathy, hyperlipidemia, hypertension, seizure disorder, hiatal hernia. The patient is present with her daughter. The patient presented this morning feeling short of breath and with chest heaviness. Did not radiate to the neck or arm. No perspiration but was dizzy. No fever, chills. No cough and presented for the same for a cardiac workup. Admitted to the ER. The patient had a negative stress test about a year ago. When I saw this patient later this afternoon the symptoms were feeling better. Denies any history of coronary artery disease. REVIEW OF SYSTEMS: CONSTITUTIONAL: None. HEENT: As above. RESPIRATORY: As above. CARDIOVASCULAR: As above. GASTROINTESTINAL: None. GENITOURINARY: None. MUSCULOSKELETAL: None. DERMATOLOGICAL: None. HEMATOLOGICAL: None. LYMPHATICS: None. PSYCHIATRIC: None. NEUROLOGICAL: None. PAST MEDICAL HISTORY: Atrial fibrillation, diabetes with neuropathy, hypertension, hyperlipidemia, seizure disorder, right arm numbness due to cervical nerve pinched, esophageal strictures, hiatal hernia, seizure in her sleep, bilateral glaucoma. PAST SURGICAL HISTORY: Cholecystectomy, hysterectomy, orthopedic surgery, EGD with multiple dilatations, hemorrhoidectomy, bilateral cataract removed, thyroid nodules removed, right ankle ORIF. PSYCH HISTORY: Anxiety and depression. SOCIAL HISTORY: Lives with her daughter and son-in-law. Has a cane and a walker. Does not smoke or drink alcohol. FAMILY HISTORY: Diabetes. HOME MEDICATIONS: 1. 20 mg q.h.s. 2. Lumigan 0.01% 5 mL in both eyes q.h.s. 3. Glucophage 500 mg p.o. b.i.d. 4. Lamictal 200 mg b.i.d. 5. Norvasc 5 mg p.o. daily. 6. Zoloft 100 mg p.o. daily. 7. Pravachol 40 mg p.o. daily. 8. Prilosec 20 mg with breakfast. 9. Trileptal 150 mg p.o. b.i.d. 10.Prinivil 10 mg p.o. daily. 11.Ativan 1 mg p.o. daily p.r.n. 12.Vitamin D3 1000 units p.o. daily. 13.Calcium 600 mg p.o. daily. 14.Combigan 0.2% 5 mL both eyes b.i.d. 15.Eliquis 2.5 mg b.i.d. ALLERGIES: TO CIPRO, METOPROLOL, PENICILLIN, SULFA. EXAMINATION: VITAL SIGNS: Temp 97.5, pulse 63, respiratory 18, blood pressure 149/75, pulse ox 98% on room air. GENERAL APPEARANCE: Average built, sitting up, comfortable. EYES: Pupils equal. Conjunctivae normal. HEENT: External appearance of nose and ears normal. Oral cavity normal. Neck JVD not raised. Mass not palpable. RESPIRATORY: Effort normal. Lungs fair entry. CARDIOVASCULAR: 1st and 2nd sounds normal. No edema. ABDOMEN: Soft, nontender. Liver and spleen not palpable. LYMPHATICS: No lymph nodes palpable in neck or axillae. PSYCHIATRY: Alert and oriented x3. Mood and affect normal. NEUROLOGICAL: Pupils equal. Cranial nerves grossly intact. Power and sensation grossly intact. INVESTIGATIONS: White count 15.4, hemoglobin 14.3, potassium 4.4, BUN and creatinine is normal. Troponin times 2- negative. Chest x-ray film personally reviewed by me shows some cardiomegaly, no infiltrates. Also report was reviewed. EKG tracing personally reviewed by me shows atrial fibrillation, rate controlled with PVCs. A 2D echo, EF of 50-55 percent. Chest CTA negative for PE. ASSESSMENT: 1. Chest pain, possible angina. 2. Persistent atrial fibrillation chronically on Eliquis. 3. Diabetes mellitus type 2 on oral hypoglycemic causing peripheral neuropathy. 4. Essential hypertension. 5. Hyperlipidemia. 6. Chronic seizure disorder. 7. History of esophageal stricture with repeat dilatation. 8. Hiatal hernia. PLAN: Patient is seen by Cardiology and wanted the patient to ambulate which I did make the patient to ambulate in the hallway 2 or 3 times. She was back to normal self. Chest CT was negative for PE. The patient was told by Cardiology to follow up with Dr. Mcclure. Care was discussed with the patient and daughter. Questions answered. The patient is very keen to go home. FOLLOWUP: Follow up with Dr. Hoyt in 1 week. Follow up with Dr. Grant Mcclure on May 11, 2018. DC medications unchanged from home medications. This is a history physical and discharge summary. Copy to Dr. Hoyt. RACHAEL / EVELYNN: [id number] /
[2018-05-05] MEDS ORDERED: ASPIRIN 325 MG TAB PO SCH (09:00)
== END 2018-05-04 18:54 | disposition home or self-care (01) ==
LOC: EC 07:31 → 1SOBS 09:42
PROVIDERS: ADMIT Hospitalist; ATTEND Hospitalist
DX: R07.89 Other chest pain (principal); I48.2 Chronic atrial fibrillation; E11.42 Type 2 diabetes mellitus with diabetic polyneuropathy; E78.5 Hyperlipidemia, unspecified; I10 Essential (primary) hypertension; G40.909 Epilepsy, unspecified, not intractable, without status epilepticus; K44.9 Diaphragmatic hernia without obstruction or gangrene; R06.02 Shortness of breath; H40.9 Unspecified glaucoma; F41.9 Anxiety disorder, unspecified; F32.9 Major depressive disorder, single episode, unspecified; Z90.49 Acquired absence of other specified parts of digestive tract; Z79.899 Other long term (current) drug therapy; Z79.84 Long term (current) use of oral hypoglycemic drugs; Z79.01 Long term (current) use of anticoagulants; Z88.0 Allergy status to penicillin; Z88.1 Allergy status to other antibiotic agents; Z88.2 Allergy status to sulfonamides; Z88.8 Allergy status to other drugs, medicaments and biological substances; D72.829 Elevated white blood cell count, unspecified; K21.9 Gastro-esophageal reflux disease without esophagitis
CPT/HCPCS: 99285; 36415; 93005; 93306; 80053; 82550; 82553; 83735; 84484; 85025; 85610; 85730; 71046; 71275; G0378; Q9967

== ENCOUNTER 2018-05-23 03:13 | Inpatient (IN) | payer MEDICARE, OTHER ==
[2018-05-23 03:50] LABS: Basophils % (A) 0 %; Eosinophils # (A) 0.1 k/uL (0-0.7); Eosinophils % (A) 1 %; HCT 45.7 % (34.0-46.0); HGB 14.9 gm/dL (11.4-16.0); Lymphocytes # (A) 1.5 k/uL (1.0-4.8); Lymphocytes % (A) 13 %; MCH 29.6 pg (25.0-35.0); MCHC 32.6 g/dL (31.0-37.0); MCV 90.9 fL (80.0-100.0); Monocytes # (A) 0.5 k/uL (0-1.0); Monocytes % (A) 4 %; Neutrophils # (A) 9.8 k/uL (1.3-7.7); Neutrophils % (A) 81 %; Platelet Count 313 k/uL (150-450); RBC 5.03 m/uL (3.80-5.40); RDW 13.7 % (11.5-15.5); WBC 12.1 k/uL (3.8-10.6)
[2018-05-23 04:01] LABS: ALT 29 U/L (9-52); AST 26 U/L (14-36); Albumin 4.8 g/dL (3.5-5.0); Alkaline Phosphatase 106 U/L (38-126); Anion Gap 14 mmol/L; Blood Urea Nitrogen 11 mg/dL (7-17); Calcium 9.8 mg/dL (8.4-10.2); Carbon Dioxide 25 mmol/L (22-30); Chloride 101 mmol/L (98-107); Glucose 173 mg/dL (74-99); Potassium 4.1 mmol/L (3.5-5.1); Sodium 140 mmol/L (137-145); Total Bilirubin 0.7 mg/dL (0.2-1.3); Total Protein 7.8 g/dL (6.3-8.2)
[2018-05-23 04:04] LABS: Partial Thromboplastin Time 25.6 sec (22.0-30.0); Prothrombin Time 10.5 sec (9.0-12.0)
--- NOTE | 2018-05-23 04:05 | XR ---
EXAMINATION TYPE: XR chest 1V portable DATE OF EXAM: 05/23/2018 COMPARISON: 05/04/2018 HISTORY: Dysrhythmia TECHNIQUE: Single frontal view of the chest is obtained. FINDINGS: Heart is enlarged. There is no heart failure. Costophrenic angles are clear. There are josue st leads. Lungs are clear of consolidation. IMPRESSION: Moderate cardiomegaly. No active cardiopulmonary disease. No change.
[2018-05-23 04:11] LABS: Creatine Kinase 33 U/L (30-135)
--- NOTE | 2018-05-23 04:22 | ED ---
General Adult HPI - General Chief complaint: Arrhythmia/Palpitations Stated complaint: palpitations,poss seizure Time Seen by Provider: 05/23/18 03:27 Source: patient Mode of arrival: wheelchair Limitations: no limitations - History of Present Illness Initial comments: Patient is an 82-year-old woman who complains that she is just not feeling right. The patient gives history of having what she calls "night seizures" and that she will occasionally wake up with a feeling like she is tingling everywhere, that her heart is pounding, and that she has bitten the inside of her mouth. She states that he usually takes for about a day to get back to feeling right. Patient believes that this may have happened last night but she is not getting back to normal. She states the symptoms have been going on all day but were not improving into tonight. She does have a difficult time characterizing the way she is feeling. She states that it feels like her skin is crawling everywhere. She feels like her heart has been pounding. The patient is denying pravin pains anywhere including no chest pain, headache or abdominal pain. She is denying dyspnea. Onset/Timin -: days(s) Improves with: none Worsens with: none Treatments Prior to Arrival: none - Related Data Home Medications Medication Instructions Recorded Confirmed Apixaban [Eliquis] 2.5 mg PO BID 10/26/13 05/04/18 Bimatoprost [Lumigan .01% Ophth 5 ml BOTH EYES HS 10/26/13 05/04/18 Soln] Brimonidine Tartrate/Timolol 5 ml BOTH EYES BID 10/26/13 05/04/18 [Combigan 0.2%/0.5% Ophth Soln] LORazepam [Ativan] 1 mg PO DAILY PRN 10/26/13 05/04/18 Lisinopril [Prinivil] 10 mg PO QAM 10/26/13 05/04/18 metFORMIN HCL [Glucophage] 500 mg PO BID 10/26/13 05/04/18 amLODIPine [Norvasc] 5 mg PO QAM 11/26/14 05/04/18 lamoTRIgine [LaMICtal] 200 mg PO BID 11/26/14 05/04/18 Nadolol 20 mg PO HS 01/01/15 05/04/18 Pravastatin Sodium [Pravachol] 40 mg PO QAM 01/01/15 05/04/18 Calcium Carbonate [Calcium] 600 mg PO DAILY 08/05/16 05/04/18 Cholecalciferol [Vitamin D3] 1,000 unit PO DAILY 08/05/16 05/04/18 OXcarbazepine [Trileptal] 150 mg PO BID 10/12/17 05/04/18 Sertraline [Zoloft] 100 mg PO DAILY 05/04/18 05/04/18 Previous Rx's Medication Instructions Recorded Omeprazole [PriLOSEC] 20 mg PO AC-BRKFST #30 cap 05/11/15 Allergies Allergy/AdvReac Type Severity Reaction Status Date / Time ciprofloxacin [From Cipro] Allergy Unknown Verified 05/23/18 03:21 ciprofloxacin HCl Allergy Unknown Verified 05/23/18 03:21 [From Cipro] metoprolol Allergy Unknown Verified 05/23/18 03:21 Penicillins Allergy Unknown Verified 05/23/18 03:21 Sulfa (Sulfonamide Allergy Unknown Verified 05/23/18 03:21 Antibiotics) Review of Systems ROS Statement: Those systems with pertinent positive or pertinent negative responses have been documented in the HPI. ROS Other: All systems not noted in ROS Statement are negative. Constitutional: Denies: fever, chills, weakness Eyes: Denies: vision change Respiratory: Denies: cough, dyspnea Cardiovascular: Reports: palpitations. Denies: chest pain, orthopnea, edema, syncope Gastrointestinal: Denies: abdominal pain, nausea, vomiting Genitourinary: Denies: dysuria, hematuria Musculoskeletal: Denies: back pain Skin: Denies: rash Neurological: Denies: headache, weakness, numbness Past Medical History Past Medical History: Atrial Fibrillation, Chest Pain / Angina, Diabetes Mellitus, Eye Disorder, GERD/Reflux, Hyperlipidemia, Hypertension, Seizure Disorder Additional Past Medical History / Comment(s): NIDDM type II, neuropathy bilateral feet, R arm numbness thought d/t cervical nerve pinched, dysphagia- not currently a problem, esophageal stricture, food impaction in esophagus, hiatal hernia, seizures in her sleep and bites inside of her cheeks-pt believes she had a seizure 05/03/18, bilateral glaucoma. History of Any Multi-Drug Resistant Organisms: None Reported Past Surgical History: Cholecystectomy, Hysterectomy, Orthopedic Surgery Additional Past Surgical History / Comment(s): EGD and multiple dilations, EGD with foreign body removed, colonoscopy, hemorrhoidectomy, bilateral cataract removal/lens implants, thyroid nodules removed, R ankle ORIF. Past Anesthesia/Blood Transfusion Reactions: No Reported Reaction Past Psychological History: Anxiety, Depression Smoking Status: Never smoker Past Alcohol Use History: None Reported Past Drug Use History: None Reported - Past Family History Brother(s) Family Medical History: Cancer Sister(s) Family Medical History: Cancer Additional Family Medical History / Comment(s): MULTIPLE SISTERS WITH CA Father Family Medical History: Diabetes Mellitus Additional Family Medical History / Comment(s): leg amp Mother Family Medical History: AFIB General Exam Limitations: no limitations General appearance: alert, anxious Head exam: Present: atraumatic, normocephalic Eye exam: Present: normal appearance. Absent: scleral icterus, conjunctival injection ENT exam: Present: mucous membranes dry Neck exam: Present: normal inspection, full ROM Respiratory exam: Present: normal lung sounds bilaterally. Absent: respiratory distress, wheezes, rales, rhonchi, stridor Cardiovascular Exam: Present: irregular rhythm, normal heart sounds. Absent: systolic murmur, diastolic murmur, rubs, gallop GI/Abdominal exam: Present: soft. Absent: distended, tenderness, guarding, rebound, mass Extremities exam: Present: normal inspection, normal capillary refill. Absent: pedal edema, calf tenderness Back exam: Present: normal inspection. Absent: CVA tenderness (R), CVA tenderness (L) Neurological exam: Present: alert, oriented X3, CN II-XII intact. Absent: motor sensory deficit Skin exam: Present: warm, dry, intact, normal color. Absent: rash Course Vital Signs 05/23/18 05/23/18 05/23/18 03:18 04:20 05:00 Temperature 97.3 F L Pulse Rate 65 72 62 Respiratory 20 13 16 Rate Blood Pressure 213/93 203/113 191/123 O2 Sat by Pulse 100 98 97 Oximetry EKG Findings - EKG Results: EKG: interpreted by LASHELL, normal QRS EKG shows: atrial fibrillation (Rate approximately 89 bpm) - Blocks, Dumont, Hypertrophy, ST Abn: QRS axis and voltage: right axis deviation (+90 to +180) (Right superior Dumont deviation) Repolarization changes or abnormalities: nonspecific abnormality, ST segment, and/or T wave Medical Decision Making - Medical Decision Making Patient is an 82-year-old woman with nonspecific symptoms, was initial workup does not provide an exact etiology. Will be admitted to rule out acute coronary syndrome as a cause of her palpitations and dyspnea. - Lab Data Result diagrams: 05/23/18 03:39 05/23/18 03:39 Lab Results 05/23/18 05/23/18 05/23/18 Range/Units 03:39 03:39 03:39 WBC 12.1 H (3.8-10.6) k/uL RBC 5.03 (3.80-5.40) m/uL Hgb 14.9 (11.4-16.0) gm/dL Hct 45.7 (34.0-46.0) % MCV 90.9 (80.0-100.0) fL MCH 29.6 (25.0-35.0) pg MCHC 32.6 (31.0-37.0) g/dL RDW 13.7 (11.5-15.5) % Plt Count 313 (150-450) k/uL Neutrophils % 81 % Lymphocytes % 13 % Monocytes % 4 % Eosinophils % 1 % Basophils % 0 % Neutrophils # 9.8 H (1.3-7.7) k/uL Lymphocytes # 1.5 (1.0-4.8) k/uL Monocytes # 0.5 (0-1.0) k/uL Eosinophils # 0.1 (0-0.7) k/uL Basophils # 0.0 (0-0.2) k/uL PT (9.0-12.0) sec INR (<1.2) APTT (22.0-30.0) sec Sodium 140 (137-145) mmol/L Potassium 4.1 (3.5-5.1) mmol/L Chloride 101 (98-107) mmol/L Carbon Dioxide 25 (22-30) mmol/L Anion Gap 14 mmol/L BUN 11 (7-17) mg/dL Creatinine 0.62 (0.52-1.04) mg/dL Est GFR (CKD-EPI)AfAm >90 (>60 ml/min/1.73 sqM) Est GFR (CKD-EPI)NonAf 84 (>60 ml/min/1.73 sqM) Glucose 173 H (74-99) mg/dL Plasma Lactic Acid [place] (0.7-2.0) mmol/L Calcium 9.8 (8.4-10.2) mg/dL Magnesium 2.0 (1.6-2.3) mg/dL Total Bilirubin 0.7 (0.2-1.3) mg/dL AST 26 (14-36) U/L ALT 29 (9-52) U/L Alkaline Phosphatase 106 (38-126) U/L Total Creatine Kinase 33 (30-135) U/L CK-MB (CK-2) 0.5 (0.0-2.4) ng/mL CK-MB (CK-2) Rel Index 1.5 Troponin I <0.012 (0.000-0.034) ng/mL Total Protein 7.8 (6.3-8.2) g/dL Albumin 4.8 (3.5-5.0) g/dL Urine Color Urine Appearance (Clear) Urine pH (5.0-8.0) Ur Specific [place] (1.001-1.035) Urine Protein (Negative) Urine Glucose (UA) (Negative) Urine Ketones (Negative) Urine Blood (Negative) Urine Nitrite (Negative) Urine Bilirubin (Negative) Urine Urobilinogen (<2.0) mg/dL Ur Leukocyte Esterase (Negative) 05/23/18 05/23/18 05/23/18 Range/Units 03:39 03:39 04:20 WBC (3.8-10.6) k/uL RBC (3.80-5.40) m/uL Hgb (11.4-16.0) gm/dL Hct (34.0-46.0) % MCV (80.0-100.0) fL MCH (25.0-35.0) pg MCHC (31.0-37.0) g/dL RDW (11.5-15.5) % Plt Count (150-450) k/uL Neutrophils % % Lymphocytes % % Monocytes % % Eosinophils % % Basophils % % Neutrophils # (1.3-7.7) k/uL Lymphocytes # (1.0-4.8) k/uL Monocytes # (0-1.0) k/uL Eosinophils # (0-0.7) k/uL Basophils # (0-0.2) k/uL PT 10.5 (9.0-12.0) sec INR 1.0 (<1.2) APTT 25.6 (22.0-30.0) sec Sodium (137-145) mmol/L Potassium (3.5-5.1) mmol/L Chloride (98-107) mmol/L Carbon Dioxide (22-30) mmol/L Anion Gap mmol/L BUN (7-17) mg/dL Creatinine (0.52-1.04) mg/dL Est GFR (CKD-EPI)AfAm (>60 ml/min/1.73 sqM) Est GFR (CKD-EPI)NonAf (>60 ml/min/1.73 sqM) Glucose (74-99) mg/dL Plasma Lactic Acid [place] 1.2 (0.7-2.0) mmol/L Calcium (8.4-10.2) mg/dL Magnesium (1.6-2.3) mg/dL Total Bilirubin (0.2-1.3) mg/dL AST (14-36) U/L ALT (9-52) U/L Alkaline Phosphatase (38-126) U/L Total Creatine Kinase (30-135) U/L CK-MB (CK-2) (0.0-2.4) ng/mL CK-MB (CK-2) Rel Index Troponin I (0.000-0.034) ng/mL Total Protein (6.3-8.2) g/dL Albumin (3.5-5.0) g/dL Urine Color Light Yellow Urine Appearance Clear (Clear) Urine pH 7.0 (5.0-8.0) Ur Specific [place] 1.005 (1.001-1.035) Urine Protein Trace H (Negative) Urine Glucose (UA) 1+ H (Negative) Urine Ketones 2+ H (Negative) Urine Blood Negative (Negative) Urine Nitrite Negative (Negative) Urine Bilirubin Negative (Negative) Urine Urobilinogen <2.0 (<2.0) mg/dL Ur Leukocyte Esterase Negative (Negative) Disposition Clinical Impression: Dyspnea, Palpitations Disposition: ADMITTED IP TO THIS [facility] Condition: Fair Referrals: Andry Hoyt DO [Primary Care Provider] - 1-2 days
[2018-05-23 04:24] LABS: Creatine Kinase MB 0.5 ng/mL (0.0-2.4); Troponin I <0.012 ng/mL (0.000-0.034)
[2018-05-23 04:48] LABS: Appearance,Urine Clear (Clear); Bilirubin,Urine Negative (Negative); Blood,Urine Negative (Negative); Color,Urine Light Yellow; Glucose,Urine (UA) 1+ (Negative); Leukocyte Esterase,Urine Negative (Negative); Nitrite,Urine Negative (Negative); Protein,Urine Trace (Negative); Specific Gravity,Urine 1.005 (1.001-1.035); Urobilinogen,Urine <2.0 mg/dL (<2.0)
[2018-05-23 05:03] LABS: Ketones,Urine 2+ (Negative)
[2018-05-23] MEDS ORDERED: NADOLOL 20 MG TAB PO STA (05:12)
[2018-05-23] MEDS ORDERED: LISINOPRIL 10 MG TAB PO STA (05:12)
[2018-05-23] MEDS ORDERED: amLODIPine 5 MG TAB PO STA (05:12)
[2018-05-23] MEDS ORDERED: NITROGLYCERIN SL TABS 0.4 MG TAB SUBLINGUAL PRN (06:38)
[2018-05-23] MEDS ORDERED: LORazepam 1 MG TAB PO PRN (06:40)
[2018-05-23] MEDS: metFORMIN 500 MG TAB PO SCH ×2 (08:30→21:17)
[2018-05-23] MEDS: PANTOPRAZOLE 40 MG TABLET PO SCH (08:31)
[2018-05-23] MEDS: amLODIPine 5 MG TAB PO SCH ×2 (08:32→08:40)
[2018-05-23] MEDS: APIXABAN 2.5 MG TABLET PO SCH ×2 (08:33→21:17)
[2018-05-23] MEDS: CHOLECALCIFEROL 1,000 UNIT TAB PO SCH (08:34)
[2018-05-23] MEDS: CALCIUM CARBONATE 500 MG CHEWABLE PO SCH (08:34)
[2018-05-23] MEDS: lamoTRIgine 100 MG TAB PO SCH ×2 (08:35→21:17)
[2018-05-23] MEDS: LISINOPRIL 10 MG TAB PO SCH (08:40)
[2018-05-23] MEDS: PRAVASTATIN SODIUM 40 MG TAB PO SCH (08:41)
[2018-05-23] MEDS: SERTRALINE 100 MG TAB PO SCH (08:41)
[2018-05-23] MEDS: OXcarbazepine 150 MG TAB PO SCH (08:41)
[2018-05-23] MEDS: BRIMONIDINE TARTRATE 0.2% DROPS 5 ML BTL BOTH EYES SCH (10:05)
[2018-05-23] MEDS: TIMOLOL 0.5% OPHTH DROPS 5 ML BTL BOTH EYES SCH (10:07)
[2018-05-23 12:31] LABS: Creatine Kinase 28 U/L (30-135)
[2018-05-23 12:43] LABS: Creatine Kinase MB 0.3 ng/mL (0.0-2.4); Troponin I <0.012 ng/mL (0.000-0.034)
--- NOTE | 2018-05-23 15:21 | P.HPIM ---
History of Present Illness This is a pleasant 82 years old female with past medical history of diabetes mellitus, hyperlipidemia, hypertension, seizure, atrial fibrillation on Eliquis , presents because of palpitation and hypertensive urgency as per Daughter at bedside, her systolic blood pressure was 213 when she came into the emergency room, also patient complains of some visual hallucination and she feels things: Upper skin. She also complained from possible seizures as the daughters and the patient thinks because she didn't her tongue and there was blood on her pillow couple nights below and this happens whenever she has seizure and she is on seizure medication. Review of Systems CONSTITUTIONAL: No fever, no malaise, no fatigue. HEENT: No recent visual problems or hearing problems. Denied any sore throat. CARDIOVASCULAR: No orthopnea, PND, no palpitations, no syncope. PULMONARY: No shortness of breath, no cough, no hemoptysis. GASTROINTESTINAL: No diarrhea, no nausea, no vomiting, no abdominal pain. Normoactive bowel sounds. NEUROLOGICAL: No headaches, no weakness, no numbness. HEMATOLOGICAL: Denies any bleeding or petechiae. GENITOURINARY: Denies any burning micturition, frequency, or urgency. MUSCULOSKELETAL/RHEUMATOLOGICAL: Denies any joint pain, swelling, or any muscle pain. ENDOCRINE: Denies any polyuria or polydipsia. Past Medical History Past Medical History: Atrial Fibrillation, Chest Pain / Angina, Diabetes Mellitus, Eye Disorder, GERD/Reflux, Hyperlipidemia, Hypertension, Seizure Disorder Additional Past Medical History / Comment(s): NIDDM type II, neuropathy bilateral feet, R arm numbness thought d/t cervical nerve pinched, dysphagia- not currently a problem, esophageal stricture, food impaction in esophagus, hiatal hernia, seizures in her sleep and bites inside of her cheeks-pt believes she had a seizure 05/21/18, bilateral glaucoma. History of Any Multi-Drug Resistant Organisms: None Reported Past Surgical History: Cholecystectomy, Hysterectomy, Orthopedic Surgery Additional Past Surgical History / Comment(s): EGD and multiple dilations, EGD with foreign body removed, colonoscopy, hemorrhoidectomy, bilateral cataract removal/lens implants, thyroid nodules removed, R ankle ORIF. Past Anesthesia/Blood Transfusion Reactions: No Reported Reaction Smoking Status: Never smoker - Past Family History Brother(s) Family Medical History: Cancer Sister(s) Family Medical History: Cancer Additional Family Medical History / Comment(s): MULTIPLE SISTERS WITH CA Father Family Medical History: Diabetes Mellitus Additional Family Medical History / Comment(s): leg amp Mother Family Medical History: AFIB Medications and Allergies Home Medications Medication Instructions Recorded Confirmed Type Apixaban [Eliquis] 2.5 mg PO BID 10/26/13 05/23/18 History Bimatoprost [Lumigan .01% Ophth 1 drop BOTH EYES HS 10/26/13 05/23/18 History Soln] Brimonidine Tartrate/Timolol 1 drop BOTH EYES BID 10/26/13 05/23/18 History [Combigan 0.2%/0.5% Ophth Soln] LORazepam [Ativan] 1 mg PO DAILY PRN 10/26/13 05/23/18 History metFORMIN HCL [Glucophage] 500 mg PO BID 10/26/13 05/23/18 History amLODIPine [Norvasc] 5 mg PO QAM 11/26/14 05/23/18 History lamoTRIgine [LaMICtal] 200 mg PO BID 11/26/14 05/23/18 History Nadolol 20 mg PO HS 01/01/15 05/23/18 History Pravastatin Sodium [Pravachol] 40 mg PO QAM 01/01/15 05/23/18 History Omeprazole [PriLOSEC] 20 mg PO AC-BRKFST #30 cap 05/11/15 05/23/18 Rx Calcium Carbonate [Calcium] 600 mg PO DAILY 08/05/16 05/23/18 History Cholecalciferol [Vitamin D3] 1,000 unit PO DAILY 08/05/16 05/23/18 History OXcarbazepine [Trileptal] 150 mg PO BID 10/12/17 05/23/18 History Sertraline [Zoloft] 100 mg PO DAILY 05/04/18 05/23/18 History Lisinopril [Zestril] 10 mg PO DAILY 05/23/18 05/23/18 History Allergies Allergy/AdvReac Type Severity Reaction Status Date / Time ciprofloxacin [From Cipro] Allergy Unknown Verified 05/23/18 07:06 ciprofloxacin HCl Allergy Unknown Verified 05/23/18 07:06 [From Cipro] metoprolol Allergy Unknown Verified 05/23/18 07:06 Penicillins Allergy Unknown Verified 05/23/18 07:06 Sulfa (Sulfonamide Allergy Unknown Verified 05/23/18 07:06 Antibiotics) Physical Exam Vitals: Vital Signs Temp Pulse Resp BP Pulse Ox 05/23/18 09:30 77 18 138/90 98 05/23/18 09:00 83 18 175/98 05/23/18 08:00 69 18 165/85 98 05/23/18 07:42 71 18 165/85 96 05/23/18 07:30 78 16 159/98 96 05/23/18 07:11 75 16 159/98 97 05/23/18 06:46 69 16 165/103 96 05/23/18 05:00 62 16 191/123 97 05/23/18 04:20 72 13 203/113 98 05/23/18 03:18 97.3 F L 65 20 213/93 100 Intake and Output 05/23/18 05/23/18 05/23/18 06:59 14:59 22:59 Other: Weight 72.575 kg GENERAL: The patient is alert and oriented x3, not in any acute distress. Well developed, well nourished. HEENT: Pupils are round and equally reacting to light. EOMI. No scleral icterus. No conjunctival pallor. Normocephalic, atraumatic. No pharyngeal erythema. No thyromegaly. CARDIOVASCULAR: S1 and S2 present. No murmurs, rubs, or gallops. PULMONARY: Chest is clear to auscultation, no wheezing or crackles. ABDOMEN: Soft, nontender, nondistended, normoactive bowel sounds. No palpable organomegaly. MUSCULOSKELETAL: No joint swelling or deformity. EXTREMITIES: No cyanosis, clubbing, or pedal edema. NEUROLOGICAL: Gross neurological examination did not reveal any focal deficits. SKIN: No rashes. Results CBC & Chem 7: 05/23/18 03:39 05/23/18 03:39 Labs: Abnormal Lab Results - Last 24 Hours (Table) 05/23/18 05/23/18 05/23/18 Range/Units 03:39 03:39 04:20 WBC 12.1 H (3.8-10.6) k/uL Neutrophils # 9.8 H (1.3-7.7) k/uL Glucose 173 H (74-99) mg/dL Total Creatine Kinase (30-135) U/L Urine Protein Trace H (Negative) Urine Glucose (UA) 1+ H (Negative) Urine Ketones 2+ H (Negative) 05/23/18 Range/Units 10:59 WBC (3.8-10.6) k/uL Neutrophils # (1.3-7.7) k/uL Glucose (74-99) mg/dL Total Creatine Kinase 28 L (30-135) U/L Urine Protein (Negative) Urine Glucose (UA) (Negative) Urine Ketones (Negative) Assessment and Plan Assessment: Atrial fibrillation Possible seizure visual hallucination History of coronary artery disease History of diabetes mellitus GERD Hyperlipidemia Essential hypertension History of seizure disorder. Plan: This is a pleasant 82 years old female who presents with palpitation and hypertensive urgency, possible seizures and hallucination. Call cardiology consult already in the emergency room. We'll consult also neurologist and psychiatrist. Labs and medication were reviewed.. Continue same treatment. Continue with symptomatic treatment. Resume home medication. Monitor lytes and vitals. DVT and GI prophylaxis. Further recommendations of the clinical course of the patient DVT prophylaxis: eliquis GI Prophylaxis: Pepcid PT/OT: Pending Prognosis is guarded
[2018-05-23 16:36] LABS: Creatine Kinase 30 U/L (30-135)
[2018-05-23 16:48] LABS: Creatine Kinase MB 0.3 ng/mL (0.0-2.4); Troponin I <0.012 ng/mL (0.000-0.034)
[2018-05-23 21:04] LABS: Glucose,Whole Blood 176 mg/dL (75-99)
--- NOTE | 2018-05-23 21:16 | P.CNNES ---
History of Present Illness Consult date: 05/23/18 Reason for Consult: Patient admitted nocturnal seizures. History of Present Illness: This patient is a 82-year-old right-handed white female who was brought into the emergency room at [facility] yesterday for evaluation of nocturnal seizures. Patient apparently has been having symptoms of excessive palpitations and restlessness at night. She has a known history of underlying seizure disorder and is currently taking combination of Lamictal and Trileptal. Apparently 2 days ago her daughter found that she was having palpitations and elevated blood pressure readings. She was also found to have blood on her pillow suggesting that she may have had some nocturnal seizures. Most of her seizures always occur at night according to the patient. Patient is not a very good historian and states that her daughter was not here this evening who could provide more history. According to the patient 2 days ago she found some blood on her pillow but she thinks this may be from her chewing hurt chin at times. Apparently she has had this happen previously. Patient states she does have history of seizure disorder and does take her to anticonvulsant medications on a regular basis. We have recommended anticonvulsant blood levels be drawn tomorrow morning to make sure she is therapeutic. We would also recommend a routine EEG for further evaluation. Patient's blood pressure at home during this episode was elevated and apparently as high as 200/100. She has been admitted for further evaluation to rule out hypertensive urgency as well. Cardiology has been consulted. She has been complaining of hypertensive urgency as well as palpitations. Unclear if this is cardiac in nature. Apparently she has been showing signs of increased confusion recently as well and may require further workup. The patient states that recently her nocturnal events are associated with severe sense of cold sensation over her entire body. She also complains of some visual hallucinations when this event occurs. She states this typically happens when she has a seizure may take one to 2 days to return to baseline. Patient otherwise has been up and ambulating and denies any focal weakness. She denies any shortness of breath at this time. We have recommended further evaluation of her underlying seizure disorder. We would recommend a computed tomography scan of the brain to be done tomorrow morning as well as this was not completed in the emergency room. We will continue to follow her progress closely during this admission. Overall prognosis at this time remains very guarded. Neurology is now been consulted for further evaluation and recommendations. Review of Systems Constitutional: Denies chills, Denies fever Eyes: denies blurred vision, denies pain Ears, nose, mouth and throat: Denies headache, Denies sore throat Cardiovascular: Denies chest pain, Denies shortness of breath Respiratory: Denies cough Gastrointestinal: Denies abdominal pain, Denies diarrhea, Denies nausea, Denies vomiting Genitourinary: Denies dysuria, Denies hematuria Musculoskeletal: Denies myalgias Integumentary: Denies pruritus, Denies rash Neurological: Reports change in mentation, Reports confusion, Reports convulsions, Reports memory loss, Reports seizures, Reports tingling, Denies numbness, Denies weakness Psychiatric: Reports confusion, Reports hallucinations, Reports memory loss, Denies anxiety, Denies depression Endocrine: Denies fatigue, Denies weight change Past Medical History Past Medical History: Atrial Fibrillation, Chest Pain / Angina, Diabetes Mellitus, Eye Disorder, GERD/Reflux, Hyperlipidemia, Hypertension, Seizure Disorder Additional Past Medical History / Comment(s): NIDDM type II, neuropathy bilateral feet, R arm numbness thought d/t cervical nerve pinched, dysphagia- not currently a problem, esophageal stricture, food impaction in esophagus, hiatal hernia, seizures in her sleep and bites inside of her cheeks-pt believes she had a seizure 05/21/18, bilateral glaucoma. History of Any Multi-Drug Resistant Organisms: None Reported Past Surgical History: Cholecystectomy, Hysterectomy, Orthopedic Surgery Additional Past Surgical History / Comment(s): EGD and multiple dilations, EGD with foreign body removed, colonoscopy, hemorrhoidectomy, bilateral cataract removal/lens implants, thyroid nodules removed, R ankle ORIF. Past Anesthesia/Blood Transfusion Reactions: No Reported Reaction Smoking Status: Never smoker - Past Family History Brother(s) Family Medical History: Cancer Sister(s) Family Medical History: Cancer Additional Family Medical History / Comment(s): MULTIPLE SISTERS WITH CA Father Family Medical History: Diabetes Mellitus Additional Family Medical History / Comment(s): leg amp Mother Family Medical History: AFIB Medications and Allergies Home Medications Medication Instructions Recorded Confirmed Type Apixaban [Eliquis] 2.5 mg PO BID 10/26/13 05/23/18 History Bimatoprost [Lumigan .01% Ophth 1 drop BOTH EYES HS 10/26/13 05/23/18 History Soln] Brimonidine Tartrate/Timolol 1 drop BOTH EYES BID 10/26/13 05/23/18 History [Combigan 0.2%/0.5% Ophth Soln] LORazepam [Ativan] 1 mg PO DAILY PRN 10/26/13 05/23/18 History metFORMIN HCL [Glucophage] 500 mg PO BID 10/26/13 05/23/18 History amLODIPine [Norvasc] 5 mg PO QAM 11/26/14 05/23/18 History lamoTRIgine [LaMICtal] 200 mg PO BID 11/26/14 05/23/18 History Nadolol 20 mg PO HS 01/01/15 05/23/18 History Pravastatin Sodium [Pravachol] 40 mg PO QAM 01/01/15 05/23/18 History Omeprazole [PriLOSEC] 20 mg PO AC-BRKFST #30 cap 05/11/15 05/23/18 Rx Calcium Carbonate [Calcium] 600 mg PO DAILY 08/05/16 05/23/18 History Cholecalciferol [Vitamin D3] 1,000 unit PO DAILY 08/05/16 05/23/18 History OXcarbazepine [Trileptal] 150 mg PO BID 10/12/17 05/23/18 History Sertraline [Zoloft] 100 mg PO DAILY 05/04/18 05/23/18 History Lisinopril [Zestril] 10 mg PO DAILY 05/23/18 05/23/18 History Allergies Allergy/AdvReac Type Severity Reaction Status Date / Time ciprofloxacin [From Cipro] Allergy Unknown Verified 05/23/18 07:06 ciprofloxacin HCl Allergy Unknown Verified 05/23/18 07:06 [From Cipro] metoprolol Allergy Unknown Verified 05/23/18 07:06 Penicillins Allergy Unknown Verified 05/23/18 07:06 Sulfa (Sulfonamide Allergy Unknown Verified 05/23/18 07:06 Antibiotics) Physical Examination - Vital Signs Vital Signs: Vital Signs Temp Pulse Resp BP Pulse Ox 05/23/18 19:00 98.8 F 77 18 153/86 95 05/23/18 18:00 86 20 133/81 05/23/18 17:30 83 20 133/81 05/23/18 14:30 61 18 118/73 97 05/23/18 13:30 57 L 19 116/73 97 05/23/18 12:00 58 L 19 146/82 97 05/23/18 11:00 65 18 106/57 97 05/23/18 10:30 61 17 106/57 97 05/23/18 10:00 66 18 138/90 98 05/23/18 09:30 77 18 138/90 98 05/23/18 09:00 83 18 175/98 05/23/18 08:00 69 18 165/85 98 05/23/18 07:42 71 18 165/85 96 05/23/18 07:30 78 16 159/98 96 05/23/18 07:11 75 16 159/98 97 05/23/18 06:46 69 16 165/103 96 05/23/18 05:00 62 16 191/123 97 05/23/18 04:20 72 13 203/113 98 05/23/18 03:18 97.3 F L 65 20 213/93 100 Intake and Output 05/23/18 05/23/18 05/23/18 06:59 14:59 22:59 Other: Weight 72.575 kg - Constitutional General appearance: average body habitus, cooperative - EENT EENT: PERRL, mucous membranes moist - Respiratory Respiratory: lungs clear, normal breath sounds - Cardiovascular Cardiovascular: regular rate, normal S1, normal S2 Extremities: no peripheral edema bilaterally - Gastrointestinal Gastrointestinal: normoactive bowel sounds - Integumentary Integumentary: normal - Neurologic Cranial nerve examination: PERRL, EOMI, VFF, V1/V2/V3 grossly intact, face symmetric, intact gag reflex, intact corneal reflex, normal palatal elevation Speech examination: intact Sensorimotor examination: intact Motor examination - right side: 4/5: biceps, triceps, wrist flexion, wrist extension, hot tamale worker, hip flexors, knee extensors, dorsiflexion, toe extension (EHL) , plantarflexion Motor examination - left side: 4/5: biceps, triceps, wrist flexion, wrist extension, hot tamale worker, hip flexors, knee extensors, dorsiflexion, toe extension (EHL) , plantarflexion Detailed sensory examination: intact Reflex and gait examination: intact Reflexes: 1+: ankle, bicep, knee, tricep - Musculoskeletal Musculoskeletal: no pain - Psychiatric Psychiatric: mood/affect appropriate, cooperative Results - Laboratory Findings CBC and BMP: 05/23/18 03:39 05/23/18 03:39 Abnormal Lab Findings: Abnormal Labs 05/23/18 05/23/18 05/23/18 03:39 03:39 04:20 WBC 12.1 H Neutrophils # 9.8 H Glucose 173 H Total Creatine Kinase Urine Protein Trace H Urine Glucose (UA) 1+ H Urine Ketones 2+ H 05/23/18 10:59 WBC Neutrophils # Glucose Total Creatine Kinase 28 L Urine Protein Urine Glucose (UA) Urine Ketones Assessment and Plan (1) Seizure disorder Current Visit: Yes Status: Acute Code(s): G40.909 - EPILEPSY, UNSP, NOT INTRACTABLE, WITHOUT STATUS EPILEPTICUS SNOMED Code(s): 672577402 (2) Acute metabolic encephalopathy Current Visit: Yes Status: Acute Code(s): G93.41 - METABOLIC ENCEPHALOPATHY SNOMED Code(s): 72453456 (3) Palpitations Current Visit: Yes Status: Acute Code(s): R00.2 - PALPITATIONS SNOMED Code (s): 23407082 (4) Atrial fibrillation with RVR Current Visit: No Status: Acute Code(s): I48.91 - UNSPECIFIED ATRIAL FIBRILLATION SNOMED Code(s): 746770413571099 Plan: This patient is a 82-year-old female who was admitted to hospital with possibility of nocturnal seizures. She has a long-standing history of seizure disorder as well as atrial fibrillation. She is on Eloquis for treatment of her Atrial Fibrillation. She was having increasing symptoms suggesting panic attacks in which she became hypertensive with confusion and palpitations. Cardiology has been consulted for further evaluation. She has a long-standing history of seizure disorder and is currently taking 2 anticonvulsant medications including Lamictal and Trileptal. She is not very clear in details as to when her last seizure occurred. She was admitted with hypertensive urgency and is now also being evaluated for nocturnal seizures. We will obtain anticonvulsant blood levels for her tomorrow morning as well as a computed tomography scan of the brain. We will obtain an EEG for further assessment of seizure disorder. She is showing signs of possible early dementia as well and we will await further recommendations from psychiatry. Her overall prognosis at this time remains guarded. We will continue close neurological follow-up for this patient during this admission. Time with Patient: Greater than 30
[2018-05-23] MEDS: FAMOTIDINE 20 MG/2 ML VIAL IV SCH (21:17)
[2018-05-23] MEDS: LATANOPROST 0.005% OPHTH DROPS 2.5 ML BTL BOTH EYES SCH (21:24)
--- NOTE | 2018-05-23 22:04 | CT ---
EXAMINATION TYPE: CT brain wo con DATE OF EXAM: 05/23/2018 COMPARISON: 05/07/2011 HISTORY: Altered mental status. CT DLP: 1058.4 mGycm Automated exposure control for dose reduction was used. FINDINGS: There is some cerebral cortical atrophy. There is no mass effect nor midline shift. There is no sign of intracranial hemorrhage. The calvarium is intact. There is no bony destructive process. There is f airly normal aeration of the mastoid sinuses. Skull base is intact. IMPRESSION: THERE IS CEREBRAL ATROPHY THAT HAS PROGRESSED COMPARED TO OLD EXAM. NO ACUTE INTRACRANIAL ABNORMALITY .
[2018-05-24] MEDS: TIMOLOL 0.5% OPHTH DROPS 5 ML BTL BOTH EYES SCH ×3 (00:08→21:30)
[2018-05-24] MEDS: OXcarbazepine 150 MG TAB PO SCH ×3 (00:08→23:36)
[2018-05-24] MEDS: NADOLOL 20 MG TAB PO SCH ×2 (00:08→21:31)
[2018-05-24] MEDS: BRIMONIDINE TARTRATE 0.2% DROPS 5 ML BTL BOTH EYES SCH ×3 (06:03→23:36)
[2018-05-24 06:14] LABS: Glucose,Whole Blood 142 mg/dL (75-99)
[2018-05-24] MEDS: PANTOPRAZOLE 40 MG TABLET PO SCH (06:31)
[2018-05-24] MEDS: metFORMIN 500 MG TAB PO SCH ×2 (06:31→17:59)
[2018-05-24 07:19] LABS: Cholesterol 202 mg/dL (<200); HDL Cholesterol 44 mg/dL (40-60); LDL Cholesterol,Calculated 133 mg/dL (0-99); Triglycerides 127 mg/dL (<150)
[2018-05-24] MEDS: CALCIUM CARBONATE 500 MG CHEWABLE PO SCH (11:02)
[2018-05-24] MEDS: lamoTRIgine 100 MG TAB PO SCH ×2 (11:02→21:30)
[2018-05-24] MEDS: PRAVASTATIN SODIUM 40 MG TAB PO SCH (11:03)
[2018-05-24] MEDS: SERTRALINE 100 MG TAB PO SCH (11:03)
[2018-05-24] MEDS: ASPIRIN 325 MG TAB PO SCH (11:03)
[2018-05-24] MEDS: APIXABAN 2.5 MG TABLET PO SCH ×2 (11:03→21:30)
[2018-05-24] MEDS: CHOLECALCIFEROL 1,000 UNIT TAB PO SCH (11:03)
[2018-05-24] MEDS: amLODIPine 5 MG TAB PO SCH (11:03)
[2018-05-24] MEDS: LISINOPRIL 10 MG TAB PO SCH (11:03)
[2018-05-24] MEDS: FAMOTIDINE 20 MG/2 ML VIAL IV SCH (11:04)
[2018-05-24 12:13] LABS: Glucose,Whole Blood 158 mg/dL (75-99)
--- NOTE | 2018-05-24 14:09 | P.CRDCN ---
History of Present Illness Consult date: 05/24/18 Requesting physician: Moreno Buchanan Consult reason: atrial fibrillation History of present illness: This is a pleasant 78-year-old female with known history of atrial fibrillation, diabetes, hyperlipidemia, hypertension, seizures, and hypothyroidism, patient presents to the hospital with hypertensive urgency, according to the daughter she was also having some visual hallucinations and hearing people singing when no one was around. Chest x-ray on admission showed moderate cardiomegaly with no active cardiopulmonary disease. EKG on arrival showed atrial fibrillation with occasional PVCs. Nonspecific ST-T wave changes. CAT scan of the brain showed cerebral atrophy which is progressed as compared with old exam, no acute intracranial abnormality. Blood pressure 140/ 70 with a heart rate in the 70s, 97% on room air. Blood pressure on arrival here was 203/113. Cholesterol 202, LDL 133, triglycerides 127 and HDL 44. Urinalysis was negative. Blood cell count 12.1 on admission, hemoglobin 14.9, platelet count 313. Sodium 140, potassium 4.1, BUN 11, creatinine 0.6. Troponins negative 3. At the time of my examination, patient is alert and oriented 3, her daughter is at bedside. She continues to be in atrial fibrillation, her rate is under adequate control. Past Medical History Past Medical History: Atrial Fibrillation, Chest Pain / Angina, Diabetes Mellitus, Eye Disorder, GERD/Reflux, Hyperlipidemia, Hypertension, Seizure Disorder Additional Past Medical History / Comment(s): NIDDM type II, neuropathy bilateral feet, R arm numbness thought d/t cervical nerve pinched, dysphagia- not currently a problem, esophageal stricture, food impaction in esophagus, hiatal hernia, seizures in her sleep and bites inside of her cheeks-pt believes she had a seizure 05/21/18, bilateral glaucoma. History of Any Multi-Drug Resistant Organisms: None Reported Past Surgical History: Cholecystectomy, Hysterectomy, Orthopedic Surgery Additional Past Surgical History / Comment(s): EGD and multiple dilations, EGD with foreign body removed, colonoscopy, hemorrhoidectomy, bilateral cataract removal/lens implants, thyroid nodules removed, R ankle ORIF. Past Anesthesia/Blood Transfusion Reactions: No Reported Reaction Smoking Status: Never smoker - Past Family History Brother(s) Family Medical History: Cancer Sister(s) Family Medical History: Cancer Additional Family Medical History / Comment(s): MULTIPLE SISTERS WITH CA Father Family Medical History: Diabetes Mellitus Additional Family Medical History / Comment(s): leg amp Mother Family Medical History: AFIB Medications and Allergies Home Medications Medication Instructions Recorded Confirmed Type Apixaban [Eliquis] 2.5 mg PO BID 10/26/13 05/23/18 History Bimatoprost [Lumigan .01% Ophth 1 drop BOTH EYES HS 10/26/13 05/23/18 History Soln] Brimonidine Tartrate/Timolol 1 drop BOTH EYES BID 10/26/13 05/23/18 History [Combigan 0.2%/0.5% Ophth Soln] LORazepam [Ativan] 1 mg PO DAILY PRN 10/26/13 05/23/18 History metFORMIN HCL [Glucophage] 500 mg PO BID 10/26/13 05/23/18 History amLODIPine [Norvasc] 5 mg PO QAM 11/26/14 05/23/18 History lamoTRIgine [LaMICtal] 200 mg PO BID 11/26/14 05/23/18 History Nadolol 20 mg PO HS 01/01/15 05/23/18 History Pravastatin Sodium [Pravachol] 40 mg PO QAM 01/01/15 05/23/18 History Omeprazole [PriLOSEC] 20 mg PO AC-BRKFST #30 cap 05/11/15 05/23/18 Rx Calcium Carbonate [Calcium] 600 mg PO DAILY 08/05/16 05/23/18 History Cholecalciferol [Vitamin D3] 1,000 unit PO DAILY 08/05/16 05/23/18 History OXcarbazepine [Trileptal] 150 mg PO BID 10/12/17 05/23/18 History Sertraline [Zoloft] 100 mg PO DAILY 05/04/18 05/23/18 History Lisinopril [Zestril] 10 mg PO DAILY 05/23/18 05/23/18 History Allergies Allergy/AdvReac Type Severity Reaction Status Date / Time ciprofloxacin [From Cipro] Allergy Unknown Verified 05/23/18 07:06 ciprofloxacin HCl Allergy Unknown Verified 05/23/18 07:06 [From Cipro] metoprolol Allergy Unknown Verified 05/23/18 07:06 Penicillins Allergy Unknown Verified 05/23/18 07:06 Sulfa (Sulfonamide Allergy Unknown Verified 05/23/18 07:06 Antibiotics) Physical Exam Vitals: Vital Signs Temp Pulse Pulse Resp BP BP Pulse Ox 05/24/18 12:00 97.8 F 75 16 141/78 97 05/24/18 08:00 98.0 F 84 16 155/89 95 05/24/18 04:00 97 F L 68 18 147/82 96 05/23/18 23:40 97.8 F 70 17 153/93 94 L 05/23/18 20:00 98.3 F 67 18 144/70 95 05/23/18 19:00 98.8 F 77 18 153/86 95 05/23/18 18:00 86 20 133/81 05/23/18 17:30 83 20 133/81 05/23/18 14:30 61 18 118/73 97 Intake and Output 05/23/18 05/24/18 05/24/18 22:59 06:59 14:59 Intake Total 236 Balance 236 Intake: Oral 236 Other: Voiding Method Toilet Toilet # Voids 2 Weight 68.8 kg PHYSICAL EXAMINATION: HEENT: [Head is atraumatic, normocephalic. Pupils equal, round. Neck is supple. There is no elevated jugular venous pressure.] HEART EXAMINATION: Heart S1 and S2 irregular irregular CHEST EXAMINATION:[ Lungs are clear to auscultation and precussion. No chest wall tenderness is noted on palpation or with deep breathing.] ABDOMEN: [ Soft, nontender. Bowel sounds are heard. No organomegaly noted]. EXTREMITIES:[ 2+ peripheral pulses with no evidence of peripheral edema and no calf tenderness noted]. NEUROLOGIC [patient is awake, alert and oriented -3.] Results 05/23/18 03:39 05/23/18 03:39 Cardiac Enzymes 05/23/18 Range/Units 15:50 CK-MB (CK-2) 0.3 (0.0-2.4) ng/mL Troponin I <0.012 (0.000-0.034) ng/mL Lipids 05/24/18 Range/Units 06:49 Triglycerides 127 (<150) mg/dL Cholesterol 202 H (<200) mg/dL HDL Cholesterol 44 (40-60) mg/dL Current Medications Generic Name Dose Route Start Last Admin Trade Name Freq PRN Reason Stop Dose Admin Amlodipine Besylate 5 mg 05/23/18 09:00 05/24/18 11:03 Norvasc PO 5 mg QAM LEONARD Administration Apixaban 2.5 mg 05/23/18 09:00 05/24/18 11:03 Eliquis PO 2.5 mg BID LEONARD Administration Aspirin 325 mg 05/24/18 09:00 05/24/18 11:03 Aspirin PO 325 mg DAILY LEONARD Administration Brimonidine Tartrate 1 drops 05/23/18 09:00 05/24/18 06:03 Alphagan P 0.2% Ophth Soln BOTH EYES Not Given BID [facility] Calcium Carbonate/Glycine 500 mg 05/23/18 09:00 05/24/18 11:02 Tums PO 500 mg DAILY [facility] Administration Cholecalciferol 1,000 unit 05/23/18 09:00 05/24/18 11:03 Vitamin D3 PO 1,000 unit DAILY [facility] Administration Lamotrigine 200 mg 05/23/18 09:00 05/24/18 11:02 Lamictal PO 200 mg BID [facility] Administration Latanoprost 1 drops 05/23/18 21:00 05/23/18 21:24 Xalatan 0.005% BOTH EYES Not Given HS [facility] Lisinopril 10 mg 05/23/18 09:00 05/24/18 11:03 Zestril PO 10 mg QAM [facility] Administration Lorazepam 1 mg 05/23/18 06:40 05/23/18 07:30 Ativan PO 1 mg DAILY PRN Administration Anxiety Metformin HCl 500 mg 05/23/18 07:30 05/24/18 06:31 Glucophage PO 500 mg BID-W/MEALS [facility] Administration Nadolol 20 mg 05/23/18 21:00 05/24/18 00:08 Corgard PO 20 mg HS [facility] Administration Nitroglycerin 0.4 mg 05/23/18 06:38 Nitrostat SUBLINGUAL Q5M PRN Chest Pain Oxcarbazepine 150 mg 05/23/18 09:00 05/24/18 11:04 Trileptal PO 150 mg BID [facility] Administration Pantoprazole Sodium 40 mg 05/23/18 07:30 05/24/18 06:31 Protonix PO 40 mg AC-BRKFST LEONARD Administration Pravastatin Sodium 40 mg 05/23/18 09:00 05/24/18 11:03 Pravachol PO 40 mg QAM LEONARD Administration Sertraline HCl 100 mg 05/23/18 09:00 05/24/18 11:03 Zoloft PO 100 mg DAILY LEONARD Administration Timolol Maleate 1 drops 05/23/18 09:00 05/24/18 11:04 Timoptic BOTH EYES 1 drops BID LEONARD Administration Intake and Output 05/23/18 05/24/18 05/24/18 22:59 06:59 14:59 Intake Total 236 Balance 236 Intake: Oral 236 Other: Voiding Method Toilet Toilet # Voids 2 Weight 68.8 kg 05/23/18 03:39 05/23/18 03:39 EKG Interpretations (text) EKG on admission showed atrial fibrillation with controlled ventricular response. Assessment and Plan Plan: Assessment and plan #1 hypertensive urgency #2 mental status changes with associated hallucinations #3 hyperlipidemia #4 diabetes #5 history of seizures #6 history of hypertension #7 prior cardiac catheterization in 2007 which revealed only minimal coronary artery disease. Lexiscan performed in January 2014 was negative for any reversible ischemia. Patient is scheduled to undergo stress testing in the office next week. Plan From cardiology's perspective, we'll recommend to continue the patient on her current medications. She may be able to be discharged once cleared by primary. She has a follow-up appointment already scheduled with Dr. Mcclure in the office. DNP note has been reviewed, I agree with a documented findings and plan of care. Patient was seen and examined.
--- NOTE | 2018-05-24 15:05 | P.PN ---
Subjective This is a pleasant 82 years old female with past medical history of diabetes mellitus, hyperlipidemia, hypertension, seizure, atrial fibrillation on Eliquis , presents because of palpitation and hypertensive urgency as per Daughter at bedside, her systolic blood pressure was 213 when she came into the emergency room, also patient complains of some visual hallucination and she feels things: Upper skin. She also complained from possible seizures as the daughters and the patient thinks because she didn't her tongue and there was blood on her pillow couple nights below and this happens whenever she has seizure and she is on seizure medication. 05/24/2018 Patient is feeling better today and she is more awake. And she is more interactive. Denies chest pain or dyspnea. No more syncope or seizure. Patient has been evaluated by cardiology and cleared her for discharge. Neurological evaluation is appreciated. And there comment t CT of the brain and EEG. Psychiatric evaluation as been called as patient symptoms of this presentation mostly related to her advancing dementia Objective - Vital Signs Vital signs: Vital Signs Temp 97.8 F 05/24/18 12:00 Pulse 75 05/24/18 12:00 Resp 16 05/24/18 12:00 BP 141/78 05/24/18 12:00 Pulse Ox 97 05/24/18 12:00 Intake & Output 05/23/18 05/24/18 05/24/18 18:59 06:59 18:59 Intake Total 436 Balance 436 Weight 68.8 kg Intake: Oral 436 Other: Voiding Method Toilet Toilet # Voids 2 - Exam GENERAL: The patient is alert and oriented x3, not in any acute distress. Well developed, well nourished. HEENT: Pupils are round and equally reacting to light. EOMI. No scleral icterus. No conjunctival pallor. Normocephalic, atraumatic. No pharyngeal erythema. No thyromegaly. CARDIOVASCULAR: S1 and S2 present. No murmurs, rubs, or gallops. PULMONARY: Chest is clear to auscultation, no wheezing or crackles. ABDOMEN: Soft, nontender, nondistended, normoactive bowel sounds. No palpable organomegaly. MUSCULOSKELETAL: No joint swelling or deformity. EXTREMITIES: No cyanosis, clubbing, or pedal edema. NEUROLOGICAL: Gross neurological examination did not reveal any focal deficits. SKIN: No rashes. - Labs CBC & Chem 7: 05/23/18 03:39 05/23/18 03:39 Labs: Abnormal Lab Results - Last 24 Hours (Table) 05/23/18 05/24/18 05/24/18 Range/Units 21:01 06:13 06:49 POC Glucose (mg/dL) 176 H 142 H (75-99) mg/dL Cholesterol 202 H (<200) mg/dL LDL Cholesterol, Calc 133 H (0-99) mg/dL 05/24/18 Range/Units 11:55 POC Glucose (mg/dL) 158 H (75-99) mg/dL Cholesterol (<200) mg/dL LDL Cholesterol, Calc (0-99) mg/dL Assessment and Plan Assessment: Atrial fibrillation Possible seizure Possible Alzheimer dementia visual hallucination History of coronary artery disease History of diabetes mellitus GERD Hyperlipidemia Essential hypertension History of seizure disorder. Plan: This is a pleasant 82 years old female who presents with palpitation and hypertensive urgency, possible seizures and hallucination. Call cardiology consult already in the emergency room. We'll consult also neurologist and psychiatrist. Labs and medication were reviewed.. Continue same treatment. Continue with symptomatic treatment. Resume home medication. Monitor lytes and vitals. DVT and GI prophylaxis. Further recommendations of the clinical course of the patient DVT prophylaxis: eliquis GI Prophylaxis: Pepcid PT/OT: Pending Prognosis is guarded
[2018-05-24 16:53] LABS: Glucose,Whole Blood 170 mg/dL (75-99)
[2018-05-24 21:11] LABS: Glucose,Whole Blood 151 mg/dL (75-99)
[2018-05-24 21:35] VITALS: RESP 18
--- NOTE | 2018-05-24 21:43 | EEG ---
ELECTROENCEPHALOGRAM REPORT DATE OF EE05/24/2018 ELECTROENCEPHALOGRAPHIC EXAMINATION REPORT: INDICATION FOR EXAMINATION: This patient is an 82-year-old female with history of nocturnal seizures. Patient admitted with seizure-like event. A[age]: [age]. EEG FINDINGS: A routine 21-channel awake digital EEG recording was accomplished utilizing the 10-20 international system with bipolar and referential montages. The background activity in the most alert resting state consists of a low to medium amplitude, fairly well developed and well sustained 8-9 Hz activity over the posterior head region. This posterior rhythm attenuates to eye opening. There is a small amount of low amplitude 18-20 Hz beta activity seen maximally over the anterior head regions. Muscle and movement artifact was observed on a few occasions during the tracing. Hyperventilation was not performed. Photic stimulation at flash frequencies of 2-30 Hz produced a good symmetrical occipital driving response. No epileptiform discharges were seen. IMPRESSION: This EEG is within normal limits for the patient's age. The EEG failed to reveal any focal, lateralized, or epileptiform abnormalities. Clinical correlation is recommended. MMODL / IJN: [id number] /
--- NOTE | 2018-05-24 23:25 | P.PN ---
Subjective Progress Note Date: 05/24/18 This patient is a 82-year-old female who is being evaluated for history of seizure disorder and recent visual hallucinations and questionable breakthrough seizures. Patient underwent computed tomography scan of the brain yesterday for further evaluation of altered mental status. CAT scan of the brain revealed cerebral atrophy that is progressed as compared to an old examination performed on 05/07/2011. No evidence of any acute intracranial abnormality was noted. Patient also underwent routine EEG today which was reviewed and fails to reveal any evidence of epileptiform discharges. We reviewed the results of the CAT scan and EEG today with the patient at bedside. Patient states she has been feeling better today. She is more interactive. She was happy to learn the EEG was normal. She is to continue on her current anticonvulsant medications. Her anticonvulsant blood levels are still pending from the laboratory. 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 As noted CAT scan also shows progression of cortical atrophy. The patient has been having some auditory hallucinations. He states she does hear music in her ears. Once again we have reassured her EEG failed to reveal any active seizure focus. We will continue to follow her progress closely during this admission. Objective - Vital Signs Vital signs: Vital Signs Temp 97.8 F 05/24/18 20:00 Pulse 79 05/24/18 20:00 Resp 18 05/24/18 20:00 BP 176/80 05/24/18 20:00 Pulse Ox 94 L 05/24/18 20:00 Intake & Output 05/24/18 05/24/18 05/25/18 06:59 18:59 06:59 Intake Total 916 Balance 916 Weight 68.8 kg Intake: Oral 916 Other: Voiding Method Toilet Toilet Toilet # Voids 2 1 - Exam Physical examination: PHYSICAL EXAMINATION: Patient is resting comfortably in bed. VITAL SIGNS: Blood pressure is [176/80]. Heart rate is [79]. Respiration is [18] . Temperature is [97.8]. HEENT: Head is atraumatic, neck is supple, there were no carotid bruits. CHEST: Lungs are clear to auscultation and percussion. CARDIAC: S1, S2 normal rate and rhythm. There is no murmur. ABDOMEN: Soft and nontender. Bowel sounds are present. EXTREMITIES: There is no pedal edema. Peripheral pulses are present. Neurological examination Patient's neurological examination is unchanged from yesterday. - Labs CBC & Chem 7: 05/23/18 03:39 05/23/18 03:39 Labs: Abnormal Lab Results - Last 24 Hours (Table) 05/24/18 05/24/18 05/24/18 Range/Units 06:13 06:49 11:55 POC Glucose (mg/dL) 142 H 158 H (75-99) mg/dL Cholesterol 202 H (<200) mg/dL LDL Cholesterol, Calc 133 H (0-99) mg/dL 05/24/18 05/24/18 Range/Units 16:49 21:10 POC Glucose (mg/dL) 170 H 151 H (75-99) mg/dL Cholesterol (<200) mg/dL LDL Cholesterol, Calc (0-99) mg/dL Assessment and Plan (1) Seizure disorder Current Visit: Yes Status: Acute Code(s): G40.909 - EPILEPSY, UNSP, NOT INTRACTABLE, WITHOUT STATUS EPILEPTICUS SNOMED Code(s): 398130799 (2) Acute metabolic encephalopathy Current Visit: Yes Status: Acute Code(s): G93.41 - METABOLIC ENCEPHALOPATHY SNOMED Code(s): 32525822 (3) Palpitations Current Visit: Yes Status: Acute Code(s): R00.2 - PALPITATIONS SNOMED Code (s): 70596106 (4) Atrial fibrillation with RVR Current Visit: No Status: Acute Code(s): I48.91 - UNSPECIFIED ATRIAL FIBRILLATION SNOMED Code(s): 631329313732295 Plan: This patient is a 82-year-old female who was admitted to hospital with possibility of nocturnal seizures. She has a long-standing history of seizure disorder as well as atrial fibrillation. She is on Eliquis for treatment of her Atrial Fibrillation. She was having increasing symptoms suggesting panic attacks in which she became hypertensive with confusion and palpitations. Cardiology has been consulted for further evaluation. She has a long-standing history of seizure disorder and is currently taking 2 anticonvulsant medications including Lamictal and Trileptal. She is not very clear in details as to when her last seizure occurred. She was admitted with hypertensive urgency and is now also being evaluated for nocturnal seizures. We will obtain anticonvulsant blood levels for her tomorrow morning . She underwent computed tomography scan of the brain yesterday the results which are noted above. CAT scan of the brain did show worsening cortical atrophy consistent with progressive dementia. She underwent routine EEG today which was reviewed and is normal for her age with no evidence of any epileptiform discharges. She is to continue on her current dose of anticonvulsant medications. Her anticonvulsant blood levels are still pending from the laboratory. She is showing signs of possible early dementia as well and we will await further recommendations from psychiatry. Patient states that she has been having some auditory hallucinations and hears pieces of music being played. Her overall prognosis at this time remains guarded. We will continue close neurological follow-up for this patient during this admission.
[2018-05-24] MEDS: LATANOPROST 0.005% OPHTH DROPS 2.5 ML BTL BOTH EYES SCH (23:36)
[2018-05-24 23:51] LABS: Basophils # (A) 0.1 k/uL (0-0.2); Basophils % (A) 1 %; Eosinophils # (A) 0.2 k/uL (0-0.7); Eosinophils % (A) 2 %; HCT 41.8 % (34.0-46.0); HGB 13.5 gm/dL (11.4-16.0); Lymphocytes # (A) 2.5 k/uL (1.0-4.8); Lymphocytes % (A) 22 %; MCH 29.5 pg (25.0-35.0); MCHC 32.2 g/dL (31.0-37.0); MCV 91.4 fL (80.0-100.0); Mean Platelet Volume 7.1; Monocytes # (A) 0.6 k/uL (0-1.0); Monocytes % (A) 5 %; Neutrophils # (A) 7.8 k/uL (1.3-7.7); Neutrophils % (A) 69 %; Platelet Count 301 k/uL (150-450); RBC 4.58 m/uL (3.80-5.40); RDW 13.9 % (11.5-15.5); WBC 11.4 k/uL (3.8-10.6)
[2018-05-25 05:50] LABS: Glucose,Whole Blood 119 mg/dL (75-99)
[2018-05-25] MEDS: PANTOPRAZOLE 40 MG TABLET PO SCH (06:32)
[2018-05-25] MEDS: metFORMIN 500 MG TAB PO SCH ×2 (06:32→16:53)
[2018-05-25] MEDS: ASPIRIN 325 MG TAB PO SCH (09:03)
[2018-05-25] MEDS: CALCIUM CARBONATE 500 MG CHEWABLE PO SCH (09:03)
[2018-05-25] MEDS: LISINOPRIL 10 MG TAB PO SCH (09:03)
[2018-05-25] MEDS: PRAVASTATIN SODIUM 40 MG TAB PO SCH (09:03)
[2018-05-25] MEDS: APIXABAN 2.5 MG TABLET PO SCH (09:03)
[2018-05-25] MEDS: CHOLECALCIFEROL 1,000 UNIT TAB PO SCH (09:03)
[2018-05-25] MEDS: lamoTRIgine 100 MG TAB PO SCH (09:03)
[2018-05-25] MEDS: SERTRALINE 100 MG TAB PO SCH (09:03)
[2018-05-25] MEDS: amLODIPine 5 MG TAB PO SCH (09:03)
[2018-05-25] MEDS: OXcarbazepine 150 MG TAB PO SCH ×2 (09:04→15:34)
[2018-05-25] MEDS: TIMOLOL 0.5% OPHTH DROPS 5 ML BTL BOTH EYES SCH (09:10)
[2018-05-25 12:07] LABS: Glucose,Whole Blood 158 mg/dL (75-99)
[2018-05-25 12:14] LABS: Lamotrigine (Lamictal) 7.1 ug/mL (2.0-15.0)
--- NOTE | 2018-05-25 12:54 | P.CN ---
Psychiatric Consult - . Consult date: 05/25/18 Consult:: Nighttime hallucinations and confusion 05/25/18 11:44 Assessment and Plan Assessment: This is a pleasant 82 years old female with past medical history of diabetes mellitus, hyperlipidemia, hypertension, seizure, atrial fibrillation on Eliquis , presents because of palpitation and hypertensive urgency as per Daughter at bedside, her systolic blood pressure was 213 when she came into the emergency room, also patient complains of some visual hallucination and she feels things: Upper skin. She also complained from possible seizures as the daughters and the patient thinks because she didn't her tongue and there was blood on her pillow couple nights below and this happens whenever she has seizure and she is on seizure medication. Past Medical History Past Medical History: Atrial Fibrillation, Chest Pain / Angina, Diabetes Mellitus, Eye Disorder, GERD/Reflux, Hyperlipidemia, Hypertension, Seizure Disorder and depression Additional Past Medical History / Comment(s): NIDDM type II, neuropathy bilateral feet, R arm numbness thought d/t cervical nerve pinched, dysphagia- not currently a problem, esophageal stricture, food impaction in esophagus, hiatal hernia, seizures in her sleep and bites inside of her cheeks-pt believes she had a seizure 05/21/18, bilateral glaucoma. History of Any Multi-Drug Resistant Organisms: None Reported Past Surgical History: Cholecystectomy, Hysterectomy, Orthopedic Surgery Additional Past Surgical History / Comment(s): EGD and multiple dilations, EGD with foreign body removed, colonoscopy, hemorrhoidectomy, bilateral cataract removal/lens implants, thyroid nodules removed, R ankle ORIF. Past Anesthesia/Blood Transfusion Reactions: No Reported Reaction Smoking Status: Never smoker - Past Family History Brother(s) Family Medical History: Cancer Sister(s) Family Medical History: Cancer Additional Family Medical History / Comment(s): MULTIPLE SISTERS WITH CA Father Family Medical History: Diabetes Mellitus Additional Family Medical History / Comment(s): leg amp Mother Family Medical History: AFIB Medications and Allergies Home Medications Medication Instructions Recorded Confirmed Type Apixaban [Eliquis] 2.5 mg PO BID 10/26/13 05/23/18 History Bimatoprost [Lumigan .01% Ophth 1 drop BOTH EYES HS 10/26/13 05/23/18 History Soln] Brimonidine Tartrate/Timolol 1 drop BOTH EYES BID 10/26/13 05/23/18 History [Combigan 0.2%/0.5% Ophth Soln] LORazepam [Ativan] 1 mg PO DAILY PRN 10/26/13 05/23/18 History metFORMIN HCL [Glucophage] 500 mg PO BID 10/26/13 05/23/18 History amLODIPine [Norvasc] 5 mg PO QAM 11/26/14 05/23/18 History lamoTRIgine [LaMICtal] 200 mg PO BID 11/26/14 05/23/18 History Nadolol 20 mg PO HS 01/01/15 05/23/18 History Pravastatin Sodium [Pravachol] 40 mg PO QAM 01/01/15 05/23/18 History Omeprazole [PriLOSEC] 20 mg PO AC-BRKFST #30 cap 05/11/15 05/23/18 Rx Calcium Carbonate [Calcium] 600 mg PO DAILY 08/05/16 05/23/18 History Cholecalciferol [Vitamin D3] 1,000 unit PO DAILY 08/05/16 05/23/18 History OXcarbazepine [Trileptal] 150 mg PO BID 10/12/17 05/23/18 History Sertraline [Zoloft] 100 mg PO DAILY 05/04/18 05/23/18 History Lisinopril [Zestril] 10 mg PO DAILY 05/23/18 05/23/18 History Allergies Allergy/AdvReac Type Severity Reaction Status Date / Time ciprofloxacin [From Cipro] Allergy Unknown Verified 05/23/18 07:06 ciprofloxacin HCl Allergy Unknown Verified 05/23/18 07:06 [From Cipro] metoprolol Allergy Unknown Verified 05/23/18 07:06 Penicillins Allergy Unknown Verified 05/23/18 07:06 Sulfa (Sulfonamide Allergy Unknown Verified 05/23/18 07:06 Antibiotics) Mental Status Examination - General Appearance: [well groomed appears stated age Speech/Language: [spontaneous Attitude/Behavior: [cooperative Mood: [euthymic, Affect: [full range Orientation: [time, person, place situation] Thought Content: [wnl Risk Factors: [Denies suicidal (ideations, plan), and/or Homicidal (ideations, plan), other] Perception: [wnl, admits to nighttime hallucinations which have resolved ( auditory-man singing in her right ear] Thought Processes: [goal-oriented Concentration/Attention Span: [wnl] [Per observation and interview with the patient] Recent Memory: [wnl] [ 3 out of 3 in 3 minutes] Remote Memory: [wnl] [past events, as related history] Intelligence: [average] [based on history, based on vocabulary, syntax, grammar , and content] Judgement: [good] [per patient's behavior/history of present illness] Insight: [good] [understanding severity of illness/history of present illness Psychiatric impression: History of major depressive disorder with seizure disorder and is on appropriate medications at this time. 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 The combination of Zoloft and Trileptal and Lamictal are a efficient treatment for major depressive disorder and seizure disorder. It would that help have a CMP significant electrolytes are since most 82-year-old sensitive to electrolyte balance. Psychiatric recommendations: She continues to have nighttime hallucinations one might consider adding risperidone 0.25 mg by mouth daily at bedtime. As mentioned about current time she does not have any auditory hallucinations (man singing in her ear) so again it would've been useful to have electrolytes. It appears that is resolved. This is a very pleasant 82-year-old female who has a significant history of depression and has a very supportive daughter and son-in-law. Thank you for the consult next Fazal Tavera D.O. PhD ] Time with Patient: Less than 30
[2018-05-25 14:45] LABS: Basophils # (A) 0.1 k/uL (0-0.2); Basophils % (A) 0 %; Eosinophils # (A) 0.2 k/uL (0-0.7); Eosinophils % (A) 2 %; HCT 44.1 % (34.0-46.0); HGB 13.7 gm/dL (11.4-16.0); Lymphocytes # (A) 2.2 k/uL (1.0-4.8); Lymphocytes % (A) 18 %; MCH 29.1 pg (25.0-35.0); MCHC 31.1 g/dL (31.0-37.0); MCV 93.6 fL (80.0-100.0); Mean Platelet Volume 6.9; Monocytes # (A) 0.5 k/uL (0-1.0); Monocytes % (A) 4 %; Neutrophils # (A) 8.9 k/uL (1.3-7.7); Neutrophils % (A) 74 %; Platelet Count 378 k/uL (150-450); RBC 4.72 m/uL (3.80-5.40); RDW 14.2 % (11.5-15.5)
[2018-05-25] MEDS: BRIMONIDINE TARTRATE 0.2% DROPS 5 ML BTL BOTH EYES SCH (15:44)
[2018-05-25 16:37] VITALS: BP 162/84; PULSE 71; TEMP 97.8
--- NOTE | 2018-05-25 19:09 | P.DS ---
Providers Date of admission: 05/23/18 06:42 Attending physician: Carmelina Buchanan Consults: 05/23/18 06:38 Consult Physician Routine Consulting Provider: Edwin Pink Consult Reason/Comments: chest pain Do you want consulting provider notified?: Yes 05/23/18 15:14 Consult Physician Urgent Consulting Provider: Beatrice Collins Consult Reason/Comments: possible seizure Do you want consulting provider notified?: Yes 05/24/18 16:55 Consult Physician Routine Consulting Provider: Fazal Tavera Consult Reason/Comments: increased confusion at night with hallucinations Do you want consulting provider notified?: Yes Primary care physician: [facility] Course: diagnoses: Possible seizure Possible Alzheimer dementia Atrial fibrillation visual hallucination History of coronary artery disease History of diabetes mellitus GERD Hyperlipidemia Essential hypertension History of seizure disorder. Hospital course: This is a pleasant 82 years old female with past medical history of diabetes mellitus, hyperlipidemia, hypertension, seizure, atrial fibrillation on Eliquis , presents because of palpitation and hypertensive urgency as per Daughter at bedside, her systolic blood pressure was 213 when she came into the emergency room, also patient complains of some hallucination She also complained from possible seizures as the daughters and the patient thinks because she bit her tongue and there was blood on her pillow couple nights ago and this happens whenever she has seizure. patient was admitted to the general medical floor and she's been evaluated by several consultants, including neurologist: She has negative computed tomography scan of the head, and EEG didn't show any seizure activity. Over we checked the levelfor her seizure medication which was normal for Lamotrigine at 7.1, however Trileptal (Oxcarbazepine): Was low at 7.2 (ref. 10-35).Dr. Sandoval oil the neurologist was contacted by the staff and recommended 1 extra dose of Trileptal 150 mg and to check the level in 2-3 days. Psychiatric chest evaluated the patient for possible early dementia, and he thought She does display mild neurocognitive disorder and with a further outpatient workup to further delineate the degree of cerebrovascular disease which is best evaluated with an MRI with and without contrast and a neuropsych evaluation on outpatient basis. While drop hammer operator helper evaluated the patient for for atrial fibrillation and he recommended to continuethe current medications and follow-up with Dr. Mcclure in the office. Patient returned to her baseline and on the day of discharge patient denies chest pain. No dyspnea. No more seizure. Mental status back to her usual state. No change in urine or bowel habits. No nausea vomiting. And gait normal. Patient was cleared for discharge by psychiatrist, neurologist and drop hammer operator helper. Problems and management plan with a recommendation for outpatient patient is and follow-up was discussed with the patient and the daughter at bedside to home she lives with and they verbalized understanding and acceptance Patient was found stable and can be discharged home however she needs follow-up as an outpatient physical exam Gen.: Patient alert awake and oriented X 3, NOT IN DISTRESS CVS: s1-s2, RRR, no murmur CHEST:bilateral CTA, no wheezing or crepitation Abdomen: Soft, no tenderness, no distention, positive bowel sounds Extremities: No leg edema or induration Time spent more than 35 minutes Patient Condition at Discharge: Fair Plan - Discharge Summary Discharge Rx Participant: Yes New Discharge Prescriptions: Continue Brimonidine Tartrate/Timolol [Combigan 0.2%/0.5% Ophth Soln] 1 drop BOTH EYES BID LORazepam [Ativan] 1 mg PO DAILY PRN PRN Reason: Anxiety Apixaban [Eliquis] 2.5 mg PO BID Bimatoprost [Lumigan .01% Ophth Soln] 1 drop BOTH EYES HS metFORMIN HCL [Glucophage] 500 mg PO BID amLODIPine [Norvasc] 5 mg PO QAM lamoTRIgine [LaMICtal] 200 mg PO BID Nadolol 20 mg PO HS Pravastatin Sodium [Pravachol] 40 mg PO QAM Omeprazole [PriLOSEC] 20 mg PO -KT #30 cap Cholecalciferol [Vitamin D3] 1,000 unit PO DAILY Calcium Carbonate [Calcium] 600 mg PO DAILY OXcarbazepine [Trileptal] 150 mg PO BID Sertraline [Zoloft] 100 mg PO DAILY Lisinopril [Zestril] 10 mg PO DAILY Discharge Medication List Apixaban [Eliquis] 2.5 mg PO BID 10/26/13 [History] Bimatoprost [Lumigan .01% Ophth Soln] 1 drop BOTH EYES HS 10/26/13 [History] Brimonidine Tartrate/Timolol [Combigan 0.2%/0.5% Ophth Soln] 1 drop BOTH EYES BID 10/26/13 [History] LORazepam [Ativan] 1 mg PO DAILY PRN 10/26/13 [History] metFORMIN HCL [Glucophage] 500 mg PO BID 10/26/13 [History] amLODIPine [Norvasc] 5 mg PO QAM 11/26/14 [History] lamoTRIgine [LaMICtal] 200 mg PO BID 11/26/14 [History] Nadolol 20 mg PO HS 01/01/15 [History] Pravastatin Sodium [Pravachol] 40 mg PO QAM 01/01/15 [History] Omeprazole [PriLOSEC] 20 mg PO AC-BRKFST #30 cap 05/11/15 [Rx] Calcium Carbonate [Calcium] 600 mg PO DAILY 08/05/16 [History] Cholecalciferol [Vitamin D3] 1,000 unit PO DAILY 08/05/16 [History] OXcarbazepine [Trileptal] 150 mg PO BID 10/12/17 [History] Sertraline [Zoloft] 100 mg PO DAILY 05/04/18 [History] Lisinopril [Zestril] 10 mg PO DAILY 05/23/18 [History] Follow up Appointment(s)/Referral(s): Andry Hoyt DO [Primary Care Provider] - 1-2 days (we recommend to check your blood tests with your doctor including Trileptal level and blood tests of CBC, BMP. Please take this referrla to your doctor) Johnie Kinney DO [STAFF PHYSICIAN] - 1 Week ( we recommend MRI with and without contrast , and check your Trileptal level with your doctor. please take this referral to your doctor ) Cuca Mcclure MD [STAFF PHYSICIAN] - 2 Weeks Ambulatory/Diagnostic Orders: Miscellaneous Lab Order [LAB.AMB] Location: None Selected Activity/Diet/Wound Care/Special Instructions: cardiac diet activity is limited till you see your doctor for your neuro-cognitive disorder we recommend MRI with and without contrast and neurophych evaluation on outpatient basis. please follow up with your neurologist and your primary care doctor within one week for this purpose. Discharge Disposition: HOME SELF-CARE
--- NOTE | 2018-05-25 20:12 | P.PN ---
Subjective Progress Note Date: 05/25/18 This patient is a 82-year-old female who is being evaluated for history of seizure disorder and recent visual hallucinations and questionable breakthrough seizures. Patient underwent computed tomography scan of the brain yesterday for further evaluation of altered mental status. CAT scan of the brain revealed cerebral atrophy that is progressed as compared to an old examination performed on 05/07/2011. No evidence of any acute intracranial abnormality was noted. Patient also underwent routine EEG today which was reviewed and fails to reveal any evidence of epileptiform discharges. We reviewed the results of the CAT scan and EEG today with the patient at bedside. Patient states she has been feeling better today. She is more interactive. She was happy to learn the EEG was normal. She is to continue on her current anticonvulsant medications. Her anticonvulsant blood levels are still pending from the laboratory. 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 As noted CAT scan also shows progression of cortical atrophy. The patient has been having some auditory hallucinations. He states she does hear music in her ears. The patient was seen by psychiatry today. They have noted her history and she may require further neuropsychiatric workup as outpatient. Her neurological examination remains nonfocal. Her Trileptal level today was 7.2 and her Lamictal level was 7.1. We suggested one extra dose of Trileptal be given to the patient prior to discharge. Patient should have a repeat Trileptal blood level done next week. Once again we have reassured her EEG failed to reveal any active seizure focus. Patient is being considered for discharge home later today. We will continue to follow her progress closely during this admission. Objective - Vital Signs Vital signs: Vital Signs Temp 97.7 F 05/25/18 11:46 Pulse 67 05/25/18 11:46 Resp 18 05/25/18 11:46 BP 133/71 05/25/18 11:46 Pulse Ox 96 05/25/18 11:46 Intake & Output 05/24/18 05/25/18 05/25/18 18:59 06:59 18:59 Intake Total 916 260 Balance 916 260 Weight 69.2 kg Intake: Oral 916 260 Other: Voiding Method Toilet Toilet Toilet # Voids 1 - Exam Physical examination: PHYSICAL EXAMINATION: Patient is resting comfortably in bed. VITAL SIGNS: Blood pressure is [162/84]. Heart rate is [71]. Respiration is [16] . Temperature is [97.8]. HEENT: Head is atraumatic, neck is supple, there were no carotid bruits. CHEST: Lungs are clear to auscultation and percussion. CARDIAC: S1, S2 normal rate and rhythm. There is no murmur. ABDOMEN: Soft and nontender. Bowel sounds are present. EXTREMITIES: There is no pedal edema. Peripheral pulses are present. Neurological examination Patient's neurological examination is unchanged from yesterday. - Labs CBC & Chem 7: 05/25/18 14:29 05/23/18 03:39 Labs: Abnormal Lab Results - Last 24 Hours (Table) 05/24/18 05/24/18 05/24/18 Range/Units 06:49 16:49 21:10 WBC (3.8-10.6) k/uL Neutrophils # (1.3-7.7) k/uL POC Glucose (mg/dL) 170 H 151 H (75-99) mg/dL Oxcarbazepine 7.2 L (10-35) ug/mL 05/24/18 05/25/18 05/25/18 Range/Units 23:26 05:49 11:40 WBC 11.4 H (3.8-10.6) k/uL Neutrophils # 7.8 H (1.3-7.7) k/uL POC Glucose (mg/dL) 119 H 158 H (75-99) mg/dL Oxcarbazepine (10-35) ug/mL Assessment and Plan (1) Seizure disorder Status: Acute Code(s): G40.909 - EPILEPSY, UNSP, NOT INTRACTABLE, WITHOUT STATUS EPILEPTICUS SNOMED Code(s): 791639915 (2) Acute metabolic encephalopathy Status: Acute Code(s): G93.41 - METABOLIC ENCEPHALOPATHY SNOMED Code(s): 31760209 (3) Palpitations Status: Acute Code(s): R00.2 - PALPITATIONS SNOMED Code(s): 49513894 (4) Atrial fibrillation with RVR Status: Acute Code(s): I48.91 - UNSPECIFIED ATRIAL FIBRILLATION SNOMED Code( s): 794052456468591 Plan: This patient is a 82-year-old female who was admitted to hospital with possibility of nocturnal seizures. She has a long-standing history of seizure disorder as well as atrial fibrillation. She is on Eliquis for treatment of her Atrial Fibrillation. She was having increasing symptoms suggesting panic attacks in which she became hypertensive with confusion and palpitations. Cardiology has been consulted for further evaluation. She has a long-standing history of seizure disorder and is currently taking 2 anticonvulsant medications including Lamictal and Trileptal. She is not very clear in details as to when her last seizure occurred. She was admitted with hypertensive urgency and is now also being evaluated for nocturnal seizures. We will obtain anticonvulsant blood levels for her tomorrow morning . She underwent computed tomography scan of the brain yesterday the results which are noted above. CAT scan of the brain did show worsening cortical atrophy consistent with progressive dementia. She underwent routine EEG today which was reviewed and is normal for her age with no evidence of any epileptiform discharges. She is to continue on her current dose of anticonvulsant medications. Her anticonvulsant blood levels are still pending from the laboratory. She is showing signs of possible early dementia as well and we will await further recommendations from psychiatry. Patient states that she has been having some auditory hallucinations and hears pieces of music being played. Patient was seen by psychiatry today. Their consultation note was reviewed. Patient had slightly low Trileptal level of 7.2. Developmental level was therapeutic at 7.1. We recommend she have an extra dose of Trileptal prior to discharge. She is being considered for discharge home today. She may be worked up for neuropsychiatric disorder as outpatient. Her overall prognosis at this time remains guarded. We will continue close neurological follow-up for this patient during this admission.
[2018-05-25] MEDS ORDERED: OXcarbazepine 150 MG TAB PO SCH (21:00)
--- NOTE | 2018-05-28 12:05 | CDI ---
Documentation Clarification Form Date: 05/28/18 From: Elana Cory Frances Veronica, Criminal Researcher Hours-8:30 am & 5 pm [facility] Admit Date: 05/23/2018 6:42:00 AM Patient Name: Shakira Rubin Visit Number: [id number] Discharge Date: 05/25/2018 7:20:00 PM ATTENTION: The Clinical Documentation Specialists (CDI) and [facility] Coding Staff appreciate your assistance in clarifying documentation. Please respond to the clarification below the line at the bottom and electronically sign. The CDI & [facility] Coding staff will review the response and follow-up if needed. Please note: Queries are made part of the Legal Health Record. If you have any questions, please contact the author of this message via ITS. Dr. Musa Quick Atrial Fibrillation is documented in the ED note, H&P, both consults, all PNs & DS. History/Risk Factors: seizures, DM, CAD, HTN, hyperlipidemia EKG/telemetry: atrial fibrillation rate approx 89 bpm in ED Treatment: Eliquis, Consults: yours and neuro In your professional opinion, can you please clarify the type of Atrial Fibrillation, if known? Chronic/Permanent Paroxysmal Persistent Other, please specify Unable to determine unable to determine MTDD
--- NOTE | 2018-05-30 09:46 | CDI ---
Documentation Clarification Form Date: 05/30/2018 From: Elana Cory Frances Veronica, Dry Box Operator Hours-8:30 am & 5 pm [facility]osse Admit Date: 05/23/2018 6:42:00 AM Patient Name: Shakira Rubin Visit Number: [id number] Discharge Date: 05/25/2018 7:20:00 PM ATTENTION: The Clinical Documentation Specialists (CDI) and [facility] Coding Staff appreciate your assistance in clarifying documentation. Please respond to the clarification below the line at the bottom and electronically sign. The CDI & [facility] Coding staff will review the response and follow-up if needed. Please note: Queries are made part of the Legal Health Record. If you have any questions, please contact the author of this message via ITS. Dr. Musa Quick Atrial Fibrillation is documented in the ED note, H&P, both consults, all PNs & DS. History/Risk Factors: seizures, DM, CAD, HTN, hyperlipidemia EKG/telemetry: atrial fibrillation rate approx 89 bpm in ED Treatment: Eliquis, Consults: yours and neuro In your professional opinion, can you please clarify the type of Atrial Fibrillation, if known? Chronic/Permanent Paroxysmal Persistent Other, please specify Unable to determine MTDD
== END 2018-05-25 19:20 | disposition home or self-care (01) | DRG 100 ==
LOC: EC 03:13 → 3SCARD 06:42
PROVIDERS: ADMIT Hospitalist; ATTEND Hospitalist
DX: G40.901 Epilepsy, unspecified, not intractable, with status epilepticus (principal); G93.41 Metabolic encephalopathy; E11.40 Type 2 diabetes mellitus with diabetic neuropathy, unspecified; F03.90 Unspecified dementia, unspecified severity, without behavioral disturbance, psychotic disturbance, mood disturbance, and anxiety; I11.9 Hypertensive heart disease without heart failure; I16.0 Hypertensive urgency; I25.10 Atherosclerotic heart disease of native coronary artery without angina pectoris; I49.3 Ventricular premature depolarization; E89.0 Postprocedural hypothyroidism; K21.9 Gastro-esophageal reflux disease without esophagitis; E78.5 Hyperlipidemia, unspecified; F41.9 Anxiety disorder, unspecified; F32.9 Major depressive disorder, single episode, unspecified; H40.9 Unspecified glaucoma; Z79.01 Long term (current) use of anticoagulants; Z79.84 Long term (current) use of oral hypoglycemic drugs; Z79.899 Other long term (current) drug therapy; Z88.1 Allergy status to other antibiotic agents; Z90.49 Acquired absence of other specified parts of digestive tract; Z90.710 Acquired absence of both cervix and uterus; Z87.19 Personal history of other diseases of the digestive system; Z87.81 Personal history of (healed) traumatic fracture; Z96.1 Presence of intraocular lens; Z98.42 Cataract extraction status, left eye; Z98.41 Cataract extraction status, right eye; Z88.0 Allergy status to penicillin; Z88.2 Allergy status to sulfonamides; Z88.8 Allergy status to other drugs, medicaments and biological substances; Z80.9 Family history of malignant neoplasm, unspecified; Z83.3 Family history of diabetes mellitus; I48.91 Unspecified atrial fibrillation
CPT/HCPCS: 36415; 70450; 71045; 80053; 80061; 80175; 80183; 81003; 82550; 82553; 83605; 83735; 84484; 85025; 85610; 85730; 93005; 95819; 99285

== ENCOUNTER → 2018-06-02 | Outpatient (CLI) | payer MEDICARE, OTHER ==
--- NOTE | 2018-06-02 20:46 | MR ---
EXAMINATION TYPE: MR brain wo/w con DATE OF EXAM: 06/02/2018 COMPARISON: CT brain 05/23/2018 HISTORY: Epilepsy, Confusion TECHNIQUE: Multiplanar, multisequence images of the brain and brainstem is performed without and with IV contras t, utilizing 7 mL intravenous Gadavist . FINDINGS: Diffusion weighted images demonstrate no evidence of a recent infarct or other diffusion ab normality. There is no extra-axial fluid collection. There is hyperintensity which is confluent and scattered periventricular, pericallosal, subcutaneous and juxtacortical white matter on inversion rec overy T2-weighted sequences. The ventricular system and cisternal spaces are normal in size and appea all. The brain volume is age appropriate, there is age-related atrophy. Midline structures demonstrate normal morphology. The craniocervical junction appears within normal limits. Post contrast images demonstrate no abnormal enhancement. The dural venous sinuses appear pa tent. The visualized sinuses are clear and the globes are intact. Inflammatory changes are present in the bilateral mastoid air cells. IMPRESSION: Probable chronic small vessel ischemia and age-related atrophy. Correlate for mastoiditis .
== END | disposition home or self-care (01) ==
LOC: RADMRIMAIN 10:34
PROVIDERS: ATTEND Family Medicine
DX: G40.909 Epilepsy, unspecified, not intractable, without status epilepticus (principal)
CPT/HCPCS: 70553; A9585

== ENCOUNTER 2018-11-30 07:02 | Day surgery (SDC) | payer MEDICARE, OTHER ==
[2018-11-28 18:24] VITALS: BMI 25.0
[2018-11-30 07:20] VITALS: RESP 16; TEMP 97.8
[2018-11-30] MEDS ORDERED: LIDOCAINE 1% 20 ML VIAL (10MG/ML) FOR IV START INTRADERMA ONE (07:33)
[2018-11-30 07:36] LABS: Glucose,Whole Blood 120 mg/dL (75-99)
[2018-11-30] MEDS ORDERED: PROPOFOL 10 MG/ML 20 ML VIAL IV ONE (08:08)
--- NOTE | 2018-11-30 08:22 | P.PCN ---
Date of Procedure: 11/30/18 Procedure(s) Performed: BRIEF HISTORY: Patient is a 82-year-old, pleasant, female, scheduled for an upper endoscopy with a possible dilation as a part of evaluation of progressive dysphagia to solids for the last 4 weeks' duration. She has history of esophageal stricture for which she undergoes upper endoscopy with periodic dilation, and the last one was a year ago.. PROCEDURE PERFORMED: Esophagogastroduodenoscopy with dilation. PREOPERATIVE DIAGNOSIS: EGD with dilation. IV sedation per anesthesia. PROCEDURE: After informed consent was obtained, the patient was brought into the endoscopy unit. IV sedation was administered by Anesthesia under continuous monitoring. Initially the Olympus GIF-140 video endoscope was inserted into the mouth. Esophagus intubated without any difficulty. It was gradually advanced into the stomach and duodenum and carefully examined. The bulb and the second part of the duodenum appeared normal. The scope at this time was withdrawn to the stomach, adequately insufflated with air, and upon careful examination, mucosa of the antrum, body, cardia and the fundus appeared normal. The scope was then withdrawn into the esophagus. Small sliding Hiatal hernia noted. The GE junction was located at 39 cm from the incisors. There was a distal esophageal stricture identified and this time this was dilated using 10-12 mm balloon in a sequential fashion for total of 90 seconds. At this time there was some oozing identified and further dilation was not performed. The rest of the esophagus appeared normal. There were no erosions or ulcerations seen and the patient tolerated the procedure well. IMPRESSION: 1. Distal esophageal stricture status post balloon dilation using 10-12 mm TTS balloon as described above. 2. Small sliding type Hiatal hernia. RECOMMENDATIONS: The findings of this examination were discussed with the patient as well as a family. She was advised to remain on clear liquid diet today. She will continue with omeprazole 20 mg daily and follow antireflux measures..
[2018-11-30 08:43] VITALS: BP 113/71; PULSE 55
== END 2018-11-30 08:53 | disposition home or self-care (01) ==
LOC: ORWHC2ENDO 07:02
PROVIDERS: ATTEND Internal Medicine Gastroenterology
DX: K44.9 Diaphragmatic hernia without obstruction or gangrene (principal); K22.2 Esophageal obstruction; Z79.01 Long term (current) use of anticoagulants; Z79.84 Long term (current) use of oral hypoglycemic drugs; Z79.899 Other long term (current) drug therapy; Z88.1 Allergy status to other antibiotic agents; Z88.0 Allergy status to penicillin; Z88.2 Allergy status to sulfonamides; Z88.8 Allergy status to other drugs, medicaments and biological substances
CPT/HCPCS: 43249; J2704; C1726

== ENCOUNTER 2020-05-11 09:05 | Day surgery (SDC) | payer MEDICARE, OTHER ==
[2020-05-07 15:06] VITALS: BMI 24.1
[2020-05-11 09:44] VITALS: RESP 16; TEMP 97.7
[2020-05-11 09:44] LABS: Glucose,Whole Blood 127 mg/dL (75-99)
[2020-05-11] MEDS ORDERED: PROPOFOL 10 MG/ML 20 ML VIAL IV ONE (10:36)
[2020-05-11] MEDS ORDERED: LIDOCAINE 1% INJ 10MG/ML (20 ML MDV) ONE (10:36)
--- NOTE | 2020-05-11 10:48 | P.PCN ---
Date of Procedure: 05/11/20 Procedure(s) Performed: BRIEF HISTORY: Patient is a 84-year-old, pleasant, white female scheduled for an upper endoscopy with a possible dilation as part of evaluation of dysphagia to solids for the last few weeks duration. Her last EGD with dilation was performed in June of this year she was noted to have esophageal stricture that was dilated up to 15 mm.. PROCEDURE PERFORMED: Esophagogastroduodenoscopy with dilation. PREOPERATIVE DIAGNOSIS: Dysphagia to solids. IV sedation per anesthesia. PROCEDURE: After informed consent was obtained, the patient was brought into the endoscopy unit. IV sedation was administered by Anesthesia under continuous monitoring. Initially the Olympus GIF-140 video endoscope was inserted into the mouth. Esophagus intubated without any difficulty. It was gradually advanced into the distal esophagus where there was a tight esophageal stricture identified. The scope could not be advanced through this area. At this time the suture was dilated using 10-12 mm balloon in a sequential fashion for 30 seconds. Following this I was able to advance the scope into the stomach and duodenum and carefully examined. The bulb and the second part of the duodenum appeared normal. The scope at this time was withdrawn to the stomach, adequately insufflated with air, and upon careful examination, mucosa of the antrum, body, cardia and the fundus appeared normal. The scope was then withdrawn into the esophagus. The GE junction was located at 39 cm from the incisors. There was mucosal oozing at the site of dilation noted. The rest of the esophagus appeared normal. There were no erosions or ulcerations seen and the patient tolerated the procedure well. IMPRESSION: 1. Distal esophageal tight stricture status post balloon dilation using 10-12 mm TTS balloon as described above. 2. Mild diffuse antral gastritis. RECOMMENDATIONS: The findings of this examination were discussed with the patient as well as a family. She was advised to remain on a clear liquid diet for today. She will remain on Prilosec 20 mg daily and follow antireflux measures. She can resume Eliquis today.
[2020-05-11 11:05] VITALS: BP 129/64; PULSE 73
== END 2020-05-11 11:37 | disposition home or self-care (01) ==
LOC: ORWHC2ENDO 09:05
PROVIDERS: ATTEND Internal Medicine Gastroenterology
DX: K22.2 Esophageal obstruction (principal); K29.70 Gastritis, unspecified, without bleeding; I48.91 Unspecified atrial fibrillation; I10 Essential (primary) hypertension; E78.5 Hyperlipidemia, unspecified; E11.9 Type 2 diabetes mellitus without complications; R56.9 Unspecified convulsions; K21.9 Gastro-esophageal reflux disease without esophagitis; Z87.19 Personal history of other diseases of the digestive system; Z98.890 Other specified postprocedural states; Z79.01 Long term (current) use of anticoagulants; Z79.84 Long term (current) use of oral hypoglycemic drugs; Z79.899 Other long term (current) drug therapy; Z88.1 Allergy status to other antibiotic agents; Z88.8 Allergy status to other drugs, medicaments and biological substances; Z88.0 Allergy status to penicillin; Z88.2 Allergy status to sulfonamides; Z86.73 Personal history of transient ischemic attack (TIA), and cerebral infarction without residual deficits
CPT/HCPCS: 43249; J2001; J2704; C1726

== ENCOUNTER 2021-02-24 07:15 | Day surgery (SDC) | payer MEDICARE, OTHER ==
[2021-02-23 09:34] VITALS: BMI 25.0
[2021-02-24 07:56] VITALS: TEMP 96.9
[2021-02-24 08:12] LABS: Glucose,Whole Blood 108 mg/dL (75-99)
[2021-02-24] MEDS ORDERED: PROPOFOL 10 MG/ML 20 ML VIAL IV ONE (08:28)
--- NOTE | 2021-02-24 08:40 | P.PCN ---
Date of Procedure: 02/24/21 Procedure(s) Performed: BRIEF HISTORY: Patient is a 85-year-old, pleasant, female scheduled for an upper endoscopy as a part of evaluation of intermittent dysphagia to solids for the last few weeks duration. She has history of GERD and has been on omeprazole 20 mg daily. PROCEDURE PERFORMED: Esophagogastroduodenoscopy with biopsy and dilation. PREOPERATIVE DIAGNOSIS: Intermittent dysphagia to solids. IV sedation per anesthesia. PROCEDURE: After informed consent was obtained, the patient was brought into the endoscopy unit. IV sedation was administered by Anesthesia under continuous monitoring. Initially the Olympus GIF-140 video endoscope was inserted into the mouth. Esophagus intubated without any difficulty. It was gradually advanced into the stomach and duodenum and carefully examined. The bulb and the second part of the duodenum appeared normal. The scope at this time was withdrawn to the stomach, adequately insufflated with air, and upon careful examination, mucosa of the antrum, had mild diffuse gastritis and biopsies were done from this area. The body, cardia and the fundus appeared normal. The scope was then withdrawn into the esophagus. The GE junction was located at 36 cm from the incisors. It was a distal esophagus which are identified that was dilated using 12 and 13.5 mm TTS balloon in a sequential fashion. The mucosa in the distal esophagus appeared friable with superficial erosions and friable mucosa with thickened esophageal folds and biopsies were done from this area. The rest of the esophagus appeared normal. The patient tolerated the procedure well. IMPRESSION: 1. Distal esophageal stricture status post balloon dilation using 12-13.5 mm TTS balloon in a sequential fashion. 2. Erosions with erythema in the distal esophagus with thickened folds consistent with LA grade B reflux esophagitis. 3. Mild diffuse gastritis RECOMMENDATIONS: The findings of this examination were discussed with the patient well as her family. She was advised to follow with the biopsy. She will remain on clear liquid diet for lunch today. Resume Eliquis tonight. Follow up in office as needed.
[2021-02-24 09:19] VITALS: BP 149/78; PULSE 79; RESP 16
== END 2021-02-24 09:25 | disposition home or self-care (01) ==
LOC: ORWHC2ENDO 07:15
PROVIDERS: ATTEND Internal Medicine Gastroenterology
DX: K31.9 Disease of stomach and duodenum, unspecified (principal); K20.0 Eosinophilic esophagitis; K29.70 Gastritis, unspecified, without bleeding; E11.40 Type 2 diabetes mellitus with diabetic neuropathy, unspecified; I10 Essential (primary) hypertension; E78.5 Hyperlipidemia, unspecified; I48.91 Unspecified atrial fibrillation; E11.9 Type 2 diabetes mellitus without complications; E07.9 Disorder of thyroid, unspecified; Z82.3 Family history of stroke; K21.9 Gastro-esophageal reflux disease without esophagitis; Z90.49 Acquired absence of other specified parts of digestive tract; Z90.710 Acquired absence of both cervix and uterus; Z98.49 Cataract extraction status, unspecified eye; Z98.890 Other specified postprocedural states; Z79.84 Long term (current) use of oral hypoglycemic drugs; Z79.01 Long term (current) use of anticoagulants; Z79.899 Other long term (current) drug therapy; Z88.2 Allergy status to sulfonamides; Z88.1 Allergy status to other antibiotic agents; Z88.0 Allergy status to penicillin; Z88.8 Allergy status to other drugs, medicaments and biological substances
CPT/HCPCS: 88305; 43239; 43249; J2704; C1726

== ENCOUNTER 2021-06-02 07:13 | Day surgery (SDC) | payer MEDICARE ==
[2021-05-31 14:35] VITALS: BMI 24.1
[~2021-06-02 07:13] MED LIST changes: +LIDOCAINE 1% (10MG/ML) FOR IV START INTRADERMA PRN
[2021-06-02 07:53] LABS: Glucose,Whole Blood 150 mg/dL (75-99)
[2021-06-02 07:54] VITALS: TEMP 97.1
[2021-06-02] MEDS ORDERED: PROPOFOL 10 MG/ML 20 ML VIAL IV ONE (08:28)
[2021-06-02] MEDS ORDERED: LIDOCAINE 1% INJ 10MG/ML (20 ML MDV) ONE (08:28)
--- NOTE | 2021-06-02 08:45 | P.PCN ---
Date of Procedure: 06/02/21 Procedure(s) Performed: BRIEF HISTORY: Patient is a []-year-old, pleasant, white female scheduled for an upper endoscopy as a part of evaluation of progressive dysphagia to solids for the last 2 months duration. She has history of obvious stricture for which she underwent EGD with dilation in February 2021. She also has long-standing history of GERD and has been on omeprazole 20 mg daily.. PROCEDURE PERFORMED: Esophagogastroduodenoscopy with balloon dilation. PREOPERATIVE DIAGNOSIS: History of esophageal stricture and progressive dysphagia. IV sedation per anesthesia. PROCEDURE: After informed consent was obtained, the patient was brought into the endoscopy unit. IV sedation was administered by Anesthesia under continuous monitoring. Initially the Olympus GIF-140 video endoscope was inserted into the mouth. Esophagus intubated without any difficulty. It was gradually advanced into the stomach and duodenum and carefully examined. The bulb and the second part of the duodenum appeared normal. The scope at this time was withdrawn to the stomach, adequately insufflated with air, and upon careful examination, mucosa of the antrum, body, cardia and the fundus diffuse gastritis.. The scope was then withdrawn into the esophagus. The GE junction was located at 39 cm from the incisors. There were erosions noted in the distal esophagus consistent with LA grade B reflux esophagitis. There was a distal esophageal stricture noted and this was dilated using 12 and 13.5 mm TTS balloon in a sequential fashion for 60 seconds. Findings with dilation there was some oozing identified and hence further dilation was not performed. The rest of the esophagus appeared normal and the patient tolerated the procedure well. IMPRESSION: 1. Distal esophageal stricture status post balloon dilation using 12-13.5 mm TTS balloon. 2. Erosions in the distal esophagus consistent with LA grade B reflux esophagitis. 3, diffuse gastritis involving the entire stomach RECOMMENDATIONS: The findings of this examination were discussed with the patient as well as her family. She was advised to be on a clear liquid diet for today. Increase omeprazole to 20 mg twice daily and follow antireflux measures.
[2021-06-02 08:49] VITALS: RESP 16
[2021-06-02 09:04] VITALS: BP 148/81; PULSE 64
== END 2021-06-02 09:23 | disposition home or self-care (01) ==
LOC: ORWHC2ENDO 07:13
PROVIDERS: ATTEND Internal Medicine Gastroenterology
DX: K22.2 Esophageal obstruction (principal); K29.70 Gastritis, unspecified, without bleeding; I10 Essential (primary) hypertension; E78.5 Hyperlipidemia, unspecified; I48.91 Unspecified atrial fibrillation; I69.311 Memory deficit following cerebral infarction; H91.90 Unspecified hearing loss, unspecified ear; F41.9 Anxiety disorder, unspecified; F32.A Depression, unspecified; G62.9 Polyneuropathy, unspecified; Z79.84 Long term (current) use of oral hypoglycemic drugs; Z79.899 Other long term (current) drug therapy; Z79.01 Long term (current) use of anticoagulants; Z88.1 Allergy status to other antibiotic agents; Z88.0 Allergy status to penicillin; Z88.2 Allergy status to sulfonamides; Z88.8 Allergy status to other drugs, medicaments and biological substances
CPT/HCPCS: 43249; J2001; J2704; C1726

== ENCOUNTER 2021-10-02 11:51 | Emergency (ER) | payer MEDICARE ==
[2021-10-02 11:57] VITALS: RESP 18; TEMP 98
--- NOTE | 2021-10-02 13:14 | ED ---
General Adult HPI - General Chief complaint: Recheck/Abnormal Lab/Rx Stated complaint: Problems Swallowing/Vomiting Time Seen by Provider: 10/02/21 12:09 Source: patient Mode of arrival: ambulatory Limitations: no limitations - History of Present Illness Initial comments: Patient is a 85 year female with a past medical history significant for esophageal stricture with multiple EGD dilations by Dr. Sanchez who presents to the emergency department today with a chief complaint of trouble swallowing. Patient states her symptoms started this morning. Patient states she cannot swallow any food or liquid including water and saliva. She denies fever, chills, throat pain, pain with swallowing, trouble breathing, chest pain, abdominal pain, nausea, and vomiting. She states that normally when she has trouble swallowing it is mild and gradually worsens as the days progress but today she woke up with the severe dysphagia. Patient's daughter is concerned because patient cannot swallow her seizure prophylactic medication which she states has occurred before and resulted in 3 minute seizure. - Related Data Home Medications Medication Instructions Recorded Confirmed Apixaban [Eliquis] 2.5 mg PO BID 10/26/13 05/31/21 Brimonidine Tartrate/Timolol 1 drop BOTH EYES BID 10/26/13 05/31/21 [Combigan 0.2%/0.5% Ophth Soln] LORazepam [Ativan] 0.5 mg PO DAILY PRN 10/26/13 05/31/21 metFORMIN HCL [Glucophage] 500 mg PO BID 10/26/13 05/31/21 amLODIPine [Norvasc] 5 mg PO BID 11/26/14 05/31/21 lamoTRIgine [LaMICtal] 300 mg PO QAM 11/26/14 05/31/21 Pravastatin Sodium [Pravachol] 40 mg PO QAM 01/01/15 05/31/21 Calcium Carbonate [Calcium] 600 mg PO DAILY 08/05/16 05/31/21 Cholecalciferol [Vitamin D3 (25 1,000 unit PO DAILY 08/05/16 05/31/21 Mcg = 1000 Iu)] Sertraline [Zoloft] 200 mg PO BID 05/04/18 05/31/21 lisinopriL [Zestril] 10 mg PO QAM 05/23/18 05/31/21 Furosemide [Lasix] 20 mg PO QAM 11/28/18 05/31/21 Nadolol [Corgard] 20 mg PO BID 05/07/20 05/31/21 OXcarbazepine [Trileptal] 300 mg PO QAM 05/07/20 05/31/21 OXcarbazepine [Trileptal] 450 mg PO HS 05/07/20 05/31/21 Omeprazole [PriLOSEC] 20 mg PO QAM 05/07/20 05/31/21 Oxybutynin Chloride 5 mg PO HS 02/23/21 05/31/21 lamoTRIgine 200 mg PO HS 02/23/21 05/31/21 polyethylene glycoL 3350 [Miralax] 17 gm PO DAILY 05/31/21 05/31/21 Allergies Allergy/AdvReac Type Severity Reaction Status Date / Time ciprofloxacin [From Cipro] Allergy Unknown Verified 10/02/21 11:57 ciprofloxacin HCl Allergy Unknown Verified 10/02/21 11:57 [From Cipro] metoprolol Allergy Unknown Verified 10/02/21 11:57 Penicillins Allergy Unknown Verified 10/02/21 11:57 Sulfa (Sulfonamide Allergy Unknown Verified 10/02/21 11:57 Antibiotics) Review of Systems ROS Statement: Those systems with pertinent positive or pertinent negative responses have been documented in the HPI. ROS Other: All systems not noted in ROS Statement are negative. Past Medical History Past Medical History: Atrial Fibrillation, CVA/TIA, Diabetes Mellitus, Eye Disorder, GERD/Reflux, Hearing Disorder / Deafness, Hyperlipidemia, Hypertension, Memory Impairment, Osteoarthritis (OA), Seizure Disorder Additional Past Medical History / Comment(s): Neuropathy bilat feet, dysphagia w/ esophageal stricture, hiatal hernia, bilateral glaucoma. Hx TIA yrs ago. Chronic constipation. Hearing aids. Last seizure about 10/2020. Dementia mild. History of Any Multi-Drug Resistant Organisms: None Reported Past Surgical History: Cholecystectomy, Hysterectomy, Orthopedic Surgery Additional Past Surgical History / Comment(s): EGD and multiple dilations, EGD with foreign body removal, colonoscopy, hemorrhoidectomy, bilat cataract removal/lens implants, thyroid nodules removed, right ankle ORIF. Past Anesthesia/Blood Transfusion Reactions: No Reported Reaction Past Psychological History: Anxiety, Depression Smoking Status: Never smoker Past Alcohol Use History: None Reported Past Drug Use History: None Reported - Past Family History Brother(s) Family Medical History: Cancer Sister(s) Family Medical History: Cancer Additional Family Medical History / Comment(s): MULTIPLE SISTERS WITH CANCER. General Exam Limitations: no limitations General appearance: alert, anxious Head exam: Present: atraumatic, normocephalic, normal inspection Eye exam: Present: normal appearance, PERRL, EOMI. Absent: scleral icterus, conjunctival injection, periorbital swelling ENT exam: Present: normal oropharynx Neck exam: Present: normal inspection, full ROM. Absent: tenderness, meningismus, lymphadenopathy, thyromegaly Respiratory exam: Present: normal lung sounds bilaterally. Absent: respiratory distress, wheezes, rales, rhonchi, stridor Cardiovascular Exam: Present: tachycardia, normal heart sounds. Absent: regular rate, normal rhythm (Patient has known atrial fibrillation on Eliquis), systolic murmur, diastolic murmur, rubs, gallop, clicks GI/Abdominal exam: Present: soft, normal bowel sounds. Absent: distended, tenderness, guarding, rebound, rigid Neurological exam: Present: alert, oriented X3, CN II-XII intact Psychiatric exam: Present: normal affect, anxious Skin exam: Present: warm, dry, intact, normal color. Absent: rash Course Vital Signs 10/02/21 11:52 Temperature 98 F Pulse Rate 110 H Respiratory 18 Rate Blood Pressure 181/94 O2 Sat by Pulse 96 Oximetry Medical Decision Making - Medical Decision Making This is an 85-year-old female who presents with severe dysphagia since this morning. Thorough history and examination were performed. Patient is unable to swallow food and water. Patient does not have odynophagia or dyspnea. With inability to swallow water and daily medication, patient will need to be admitted for further evaluation and management, likely repeat EGD with dilation. Unfortunately we do not have GI services today. Case discussed with patient who is [facility] to [facility]. Transfer was arranged and patient is stable to transfer via her own vehicle. Dr. Peterson is my attending. Disposition Clinical Impression: Dysphagia, History of esophagogastroduodenoscopy (EGD), History of seizure disorder Disposition: OTHER INSTITUTION NOT DEFINED Condition: Good Referrals: Andry Hoyt DO [Primary Care Provider] - 1-2 days Time of Disposition: 13:38 - Out of Hospital Transfer - Req. Specs Out of Hospital Transfer - Requested Specifics: Other Emergency Center ([facility])
[2021-10-02 14:39] VITALS: BP 158/88; PULSE 94
== END 2021-10-02 14:25 | disposition other institution (70) ==
LOC: EC 11:51
DX: R13.10 Dysphagia, unspecified (principal); G40.909 Epilepsy, unspecified, not intractable, without status epilepticus; I48.91 Unspecified atrial fibrillation; E11.40 Type 2 diabetes mellitus with diabetic neuropathy, unspecified; E78.5 Hyperlipidemia, unspecified; I10 Essential (primary) hypertension; F41.9 Anxiety disorder, unspecified; F32.A Depression, unspecified; M19.90 Unspecified osteoarthritis, unspecified site; Z86.73 Personal history of transient ischemic attack (TIA), and cerebral infarction without residual deficits; K21.9 Gastro-esophageal reflux disease without esophagitis; Z79.84 Long term (current) use of oral hypoglycemic drugs; Z79.01 Long term (current) use of anticoagulants; Z88.0 Allergy status to penicillin; Z88.1 Allergy status to other antibiotic agents; Z88.2 Allergy status to sulfonamides
CPT/HCPCS: 99283

== ENCOUNTER 2022-04-11 18:15 | Emergency (ER) | payer MEDICARE ==
[2022-04-11 18:36] VITALS: RESP 16; TEMP 97.7
[2022-04-11] MEDS ORDERED: KETOROLAC 15 MG/ML 1 ML VIAL IVP STA (18:50)
[2022-04-11] MEDS ORDERED: HYDROmorphone 0.5 MG/0.5 ML SYRINGE IVP STA (18:51)
--- NOTE | 2022-04-11 18:56 | ED ---
General Adult HPI - General Chief complaint: Fall Stated complaint: fall Time Seen by Provider: 04/11/22 18:25 Source: patient, EMS, RN notes reviewed, old records reviewed Mode of arrival: EMS Limitations: no limitations - History of Present Illness Initial comments: This is an 86-year-old female presents emergency department stating that she lost her balance in the bathroom fell backwards and hit the left side of her thorax on the tub. Patient states she did not hit her neck or head. Patient denies any neck pain or headache. Patient denies any numbness weakness. Patient states her only complaint is left-sided rib pain posteriorly and laterally. Patient denies any anterior chest pain. Patient denies any extremity pain. Patient denies any abdominal pain. Patient states prior to the fall she did not have any chest pain palpitations difficulty breathing shortness breath per patient does not feel lightheaded or dizzy. - Related Data Home Medications Medication Instructions Recorded Confirmed Apixaban [Eliquis] 2.5 mg PO BID 10/26/13 10/05/21 Brimonidine Tartrate/Timolol 1 drop BOTH EYES BID 10/26/13 10/05/21 [Combigan 0.2%/0.5% Ophth Soln] LORazepam [Ativan] 0.5 mg PO DAILY PRN 10/26/13 10/05/21 metFORMIN HCL [Glucophage] 500 mg PO BID 10/26/13 10/05/21 amLODIPine [Norvasc] 5 mg PO BID 11/26/14 10/05/21 lamoTRIgine [LaMICtal] 200 mg PO BID 11/26/14 10/05/21 Calcium Carbonate [Calcium] 600 mg PO DAILY 08/05/16 10/05/21 Cholecalciferol [Vitamin D3 (25 1,000 unit PO DAILY 08/05/16 10/05/21 Mcg = 1000 Iu)] Sertraline [Zoloft] 100 mg PO BID 05/04/18 10/05/21 lisinopriL [Zestril] 10 mg PO QAM 05/23/18 10/05/21 Furosemide [Lasix] 20 mg PO QAM 11/28/18 10/05/21 OXcarbazepine [Trileptal] 150 mg PO HS 05/07/20 10/05/21 OXcarbazepine [Trileptal] 300 mg PO BID 05/07/20 10/05/21 Omeprazole [PriLOSEC] 20 mg PO BID 05/07/20 10/05/21 nadoloL [Corgard] 20 mg PO BID 05/07/20 10/05/21 Oxybutynin Chloride 5 mg PO HS 02/23/21 10/05/21 lamoTRIgine 100 mg PO HS 02/23/21 10/05/21 polyethylene glycoL 3350 [Miralax] 17 gm PO DAILY PRN 05/31/21 10/05/21 Nitroglycerin Sl Tabs [Nitrostat] 0.4 mg SUBLINGUAL Q5M PRN 10/04/21 10/05/21 Allergies Allergy/AdvReac Type Severity Reaction Status Date / Time ciprofloxacin [From Cipro] Allergy Unknown Verified 10/04/21 10:55 ciprofloxacin HCl Allergy Unknown Verified 10/04/21 10:55 [From Cipro] metoprolol Allergy Unknown Verified 10/04/21 10:55 Penicillins Allergy Unknown Verified 10/04/21 10:55 Sulfa (Sulfonamide Allergy Unknown Verified 10/04/21 10:55 Antibiotics) Review of Systems ROS Statement: Those systems with pertinent positive or pertinent negative responses have been documented in the HPI. ROS Other: All systems not noted in ROS Statement are negative. Past Medical History Past Medical History: Atrial Fibrillation, Chest Pain / Angina, CVA/TIA, Diabetes Mellitus, Eye Disorder, GERD/Reflux, Hearing Disorder / Deafness, Hyperlipidemia, Hypertension, Memory Impairment, Osteoarthritis (OA), Seizure Disorder Additional Past Medical History / Comment(s): Neuropathy bilat feet, dysphagia w/ esophageal stricture, bilateral glaucoma. Hx TIA yrs ago. Chronic constipation. Hearing aids. Last seizure about 10/2020. Dementia mild. History of Any Multi-Drug Resistant Organisms: None Reported Past Surgical History: Cholecystectomy, Hysterectomy, Orthopedic Surgery Additional Past Surgical History / Comment(s): EGD and multiple dilations, EGD with foreign body removal, colonoscopy, hemorrhoidectomy, bilat cataract removal/lens implants, thyroid nodules removed, right ankle ORIF. Past Anesthesia/Blood Transfusion Reactions: No Reported Reaction Past Psychological History: Anxiety, Depression Smoking Status: Never smoker - Past Family History Brother(s) Family Medical History: Cancer Sister(s) Family Medical History: Cancer Additional Family Medical History / Comment(s): MULTIPLE SISTERS WITH CANCER. General Exam - General Exam Comments Initial Comments: GENERAL: Patient is well-developed and well-nourished. Patient is nontoxic and well- hydrated and is in mild distress. ENT: Neck is soft and supple. No significant lymphadenopathy is noted. Oropharynx is clear. Moist mucous membranes. Neck has full range of motion without eliciting any pain. EYES: The sclera were anicteric and conjunctiva were pink and moist. Extraocular movements were intact and pupils were equal round and reactive to light. Eyelids were unremarkable. PULMONARY: Unlabored respirations. Good breath sounds bilaterally. No audible rales rhonchi or wheezing was noted. CARDIOVASCULAR: There is a regular rate and rhythm without any murmurs gallops or rubs. Patient has tenderness on the posterior ribs as well as lateral ribs. Rib area is tender appears to be ribs 6 through rib 8 ABDOMEN: Soft and nontender with normal bowel sounds. SKIN: Skin is clear with no lesions or rashes and otherwise unremarkable. NEUROLOGIC: Patient is alert and oriented x3. Cranial nerves II through XII are grossly intact. Motor and sensory are also intact. Normal speech, volume and content. Symmetrical smile. MUSCULOSKELETAL: Normal extremities with adequate strength and full range of motion. LYMPHATICS: No significant lymphadenopathy is noted PSYCHIATRIC: Normal psychiatric evaluation. Limitations: no limitations Course Vital Signs 04/11/22 18:26 Temperature 97.7 F Pulse Rate 109 H Respiratory 16 Rate Blood Pressure 179/106 O2 Sat by Pulse 98 Oximetry Medical Decision Making - Medical Decision Making I interpreted the chest x-ray shows no pneumothorax. I interpreted the rib x-rays before meals no rib fractures. I went back and reevaluated the patient she felt considerably better however the ribs were still operator gin to touch so clinically I believe she still has rib fractures. She is not short of breath and oxygenating well at this present time she feels good enough to go home Disposition Clinical Impression: Fall, Rib fracture Disposition: HOME SELF-CARE Instructions (If sedation given, give patient instructions): Fall Prevention for Older Adults (ED), Rib Fracture (ED) Additional Instructions: Patient should take at least 10 deep breaths per hour to keep the lungs fully inflated. Patient's take Motrin Tylenol during the day and Tylenol with Codeine at night if the pain is too much to bear. Is patient prescribed a controlled substance at d/c from ED?: No Referrals: Andry Hoyt DO [Primary Care Provider] - 1-2 days Time of Disposition: 19:58
--- NOTE | 2022-04-11 19:39 | XR ---
EXAMINATION TYPE: XR ribs LT w pa chest xray DATE OF EXAM: 04/11/2022 COMPARISON: NONE HISTORY: Chest pain TECHNIQUE: 5 views FINDINGS: Heart is enlarged. No heart failure. There are no hilar masses. Costophrenic angles are paula ar. Thoracic aorta is atheromatous. Bony thorax appears intact. No evidence of pleural effusion or pneumothorax. Left ribs appear intact IMPRESSION: No active cardiopulmonary disease. No evidence of rib fracture.
[2022-04-11] MEDS ORDERED: ACET/COD 300 MG/30 MG STARTER PACK 6 TAB BTL PO STA (19:59)
[2022-04-11 20:08] VITALS: BP 154/105; PULSE 115
== END 2022-04-11 20:12 | disposition home or self-care (01) ==
LOC: EC 18:15
DX: S22.32XA Fracture of one rib, left side, initial encounter for closed fracture (principal); I48.91 Unspecified atrial fibrillation; G45.9 Transient cerebral ischemic attack, unspecified; E11.9 Type 2 diabetes mellitus without complications; I10 Essential (primary) hypertension; E78.5 Hyperlipidemia, unspecified; K21.9 Gastro-esophageal reflux disease without esophagitis; M19.90 Unspecified osteoarthritis, unspecified site; F32.A Depression, unspecified; F41.9 Anxiety disorder, unspecified; Z90.49 Acquired absence of other specified parts of digestive tract; Z79.01 Long term (current) use of anticoagulants; Z79.84 Long term (current) use of oral hypoglycemic drugs; Z79.899 Other long term (current) drug therapy; Z79.83 Long term (current) use of bisphosphonates; Z88.1 Allergy status to other antibiotic agents; Z88.2 Allergy status to sulfonamides; Z88.0 Allergy status to penicillin; Z88.8 Allergy status to other drugs, medicaments and biological substances; W18.30XA Fall on same level, unspecified, initial encounter; Y92.002 Bathroom of unspecified non-institutional (private) residence as the place of occurrence of the external cause
CPT/HCPCS: 71101; 99284; 96374; 96375; J1885; J1170

== ENCOUNTER → 2022-06-02 | Outpatient (CLI) | payer MEDICARE ==
--- NOTE | 2022-06-02 14:29 | MR ---
EXAMINATION TYPE: MR brain wo con DATE OF EXAM: 06/02/2022 COMPARISON: Prior MRI of brain June 02, 2018 HISTORY: Diplopia, deanna weakness, memory loss TECHNIQUE: Multiplanar, multisequence imaging of the brain and brainstem is performed without IV cont rast. FINDINGS: Diffusion weighted images demonstrate no evidence of a recent infarct or other diffusion abnormality. There is mild to moderate ventricular and sulcal prominence redemonstrated. There are are multifocal and confluent areas of T2 hyperintensity seen throughout the superficial, deep, and periventricular w marilu matter. Lesions are nonspecific in appearance and distribution. Midline structures redemonstrate prominent pituitary gland measuring upper limits of normal in size. The craniocervical junction remains within normal limits. Normal vascular flow voids are present. Th e visualized sinuses are clear and the globes are intact. Increased fluid signal in the left mastoid air cells and right petrous apex are redemonstrated. IMPRESSION: There is [id number] diffuse cerebral atrophy and advanced nonspecific white matter changes favor product of chronic small vessel ischemic change in patient of this age. Other etiologie s not entirely excluded. Interval progression in findings particularly the latter from 2019 MRI noted . Possible mastoiditis versus retained secretions redemonstrated. Correlate clinically.
== END | disposition home or self-care (01) ==
LOC: RADMRIMAIN 12:38
PROVIDERS: ATTEND Ophthalmology
DX: H53.2 Diplopia (principal); G31.9 Degenerative disease of nervous system, unspecified; G93.89 Other specified disorders of brain
CPT/HCPCS: 70551

== ENCOUNTER 2022-11-29 13:32 | Emergency (ER) | payer MEDICARE ==
[2022-11-29 13:45] VITALS: TEMP 99
[2022-11-29 16:01] VITALS: RESP 18
--- NOTE | 2022-11-29 16:42 | ED ---
General Adult HPI - General Chief complaint: ENT Stated complaint: difficulty swallowing Time Seen by Provider: 11/29/22 16:02 Source: patient, family, RN notes reviewed Mode of arrival: wheelchair Limitations: no limitations - History of Present Illness Initial comments: Patient is a pleasant 86-year-old female presenting to the emergency department with difficulty in swallowing. Onset of symptoms was this morning. Patient does have history of similar symptoms multiple times previously associated with esophageal stricture. Patient has been dilated by gastroenterology at least a dozen times in the past. Patient is not able to tolerate any oral intake at this time. Patient is able to swallow her saliva for a few minutes and then spits up. No abdominal pain. - Related Data Home Medications Medication Instructions Recorded Confirmed Apixaban [Eliquis] 2.5 mg PO BID 10/26/13 10/05/21 Brimonidine Tartrate/Timolol 1 drop BOTH EYES BID 10/26/13 10/05/21 [Combigan 0.2%/0.5% Ophth Soln] LORazepam [Ativan] 0.5 mg PO DAILY PRN 10/26/13 10/05/21 metFORMIN HCL [Glucophage] 500 mg PO BID 10/26/13 10/05/21 amLODIPine [Norvasc] 5 mg PO BID 11/26/14 10/05/21 lamoTRIgine [LaMICtal] 200 mg PO BID 11/26/14 10/05/21 Calcium Carbonate [Calcium] 600 mg PO DAILY 08/05/16 10/05/21 Cholecalciferol [Vitamin D3 (25 1,000 unit PO DAILY 08/05/16 10/05/21 Mcg = 1000 Iu)] Sertraline [Zoloft] 100 mg PO BID 05/04/18 10/05/21 lisinopriL [Zestril] 10 mg PO QAM 05/23/18 10/05/21 Furosemide [Lasix] 20 mg PO QAM 11/28/18 10/05/21 OXcarbazepine [Trileptal] 150 mg PO HS 05/07/20 10/05/21 OXcarbazepine [Trileptal] 300 mg PO BID 05/07/20 10/05/21 Omeprazole [PriLOSEC] 20 mg PO BID 05/07/20 10/05/21 nadoloL [Corgard] 20 mg PO BID 05/07/20 10/05/21 Oxybutynin Chloride 5 mg PO HS 02/23/21 10/05/21 lamoTRIgine 100 mg PO HS 02/23/21 10/05/21 polyethylene glycoL 3350 [Miralax] 17 gm PO DAILY PRN 05/31/21 10/05/21 Nitroglycerin Sl Tabs [Nitrostat] 0.4 mg SUBLINGUAL Q5M PRN 10/04/21 10/05/21 Allergies Allergy/AdvReac Type Severity Reaction Status Date / Time ciprofloxacin [From Cipro] Allergy Unknown Verified 11/29/22 13:40 ciprofloxacin HCl Allergy Unknown Verified 11/29/22 13:40 [From Cipro] metoprolol Allergy Unknown Verified 11/29/22 13:40 Penicillins Allergy Unknown Verified 11/29/22 13:40 Sulfa (Sulfonamide Allergy Unknown Verified 11/29/22 13:40 Antibiotics) Review of Systems ROS Statement: Those systems with pertinent positive or pertinent negative responses have been documented in the HPI. ROS Other: All systems not noted in ROS Statement are negative. Constitutional: Denies: fever Eyes: Denies: eye pain ENT: Denies: ear pain Respiratory: Denies: cough, dyspnea Cardiovascular: Denies: chest pain Endocrine: Denies: fatigue Gastrointestinal: Reports: as per HPI Genitourinary: Denies: dysuria Musculoskeletal: Denies: back pain Skin: Denies: rash Neurological: Denies: weakness Past Medical History Past Medical History: Atrial Fibrillation, Chest Pain / Angina, CVA/TIA, Diabetes Mellitus, Eye Disorder, GERD/Reflux, Hearing Disorder / Deafness, Hyperlipidemia, Hypertension, Memory Impairment, Osteoarthritis (OA), Seizure Disorder Additional Past Medical History / Comment(s): Neuropathy bilat feet, dysphagia w/ esophageal stricture, bilateral glaucoma. Hx TIA yrs ago. Chronic constipation. Hearing aids. Last seizure about 10/2020. Dementia mild. History of Any Multi-Drug Resistant Organisms: None Reported Past Surgical History: Cholecystectomy, Hysterectomy, Orthopedic Surgery Additional Past Surgical History / Comment(s): EGD and multiple dilations, EGD with foreign body removal, colonoscopy, hemorrhoidectomy, bilat cataract removal/lens implants, thyroid nodules removed, right ankle ORIF. Past Anesthesia/Blood Transfusion Reactions: No Reported Reaction Past Psychological History: Anxiety, Depression Smoking Status: Never smoker Past Alcohol Use History: None Reported Past Drug Use History: None Reported - Past Family History Brother(s) Family Medical History: Cancer Sister(s) Family Medical History: Cancer Additional Family Medical History / Comment(s): MULTIPLE SISTERS WITH CANCER. General Exam Limitations: no limitations General appearance: alert, in no apparent distress Head exam: Present: normocephalic Eye exam: Present: normal appearance ENT exam: Present: normal oropharynx Neck exam: Present: normal inspection Respiratory exam: Present: normal lung sounds bilaterally Cardiovascular Exam: Present: regular rate, normal rhythm GI/Abdominal exam: Present: soft. Absent: tenderness Extremities exam: Present: normal inspection Neurological exam: Present: alert Psychiatric exam: Present: normal affect, normal mood Skin exam: Present: normal color Course Vital Signs 11/29/22 11/29/22 13:40 15:58 Temperature 99.0 F Pulse Rate 110 H 52 L Respiratory 20 18 Rate Blood Pressure 168/97 177/102 O2 Sat by Pulse 98 99 Oximetry - Reevaluation(s) Reevaluation #1: 11/29/22 16:42 Gastrologist not available. Case discussed with Dr. Polanco who does recommend transfer Medical Decision Making - Medical Decision Making Was pt. sent in by a medical professional or institution (, PA, SALES PERFORMANCE ANALYST, urgent care, hospital, or care home...) When possible be specific @ -No Did you speak to anyone other than the patient for history (EMS, parent, family, police, friend...)? What history was obtained from this source @ -Daughter is present and helps provide history including history of previous stricture and dilation Did you review nursing and triage notes (agree or disagree)? Why? @ -I reviewed and agree with nursing and triage notes Were old charts reviewed (outside hosp., previous admission, EMS record, old EKG, old radiological studies, urgent care reports/EKG's, care home records)? Report findings @ -No old charts were reviewed Differential Diagnosis (chest pain, altered mental status, abdominal pain women, abdominal pain men, vaginal bleeding, weakness, fever, dyspnea, syncope, headache, dizziness, GI bleed, back pain, seizure, CVA, palpatations, mental health, musculoskeletal)? @ -Differential Abdominal Pain Women: Appendicitis, Cholecystitis, diverticulosis, ischemic bowel, pancreatitis, hepatitis, UTI, gastroenteritis, AAA, incarcerated hernia, bowel obstruction, constipation, inflammatory bowel, hepatitis, peptic ulcer disease, splenic infarction, perforated viscus, vulvitis, ovarian torsion, PID, kidney stone, placenta abruption, this is not meant to be an all-inclusive list EKG interpreted by me (3pts min.). @ -As above X-rays interpreted by me (1pt min.). @ -None done CT interpreted by me (1pt min.). @ -None done U/S interpreted by me (1pt. min.). @ -None done What testing was considered but not performed or refused? (CT, X-rays, U/S, labs)? Why? @ -None What meds were considered but not given or refused? Why? @ -None Did you discuss the management of the patient with other professionals (professionals i.e. , PA, SALES PERFORMANCE ANALYST, lab, RT, psych nurse, social service director, clay maker, teacher, detention officer, caser in)? Give summary @ -Case was discussed with Dr. Polanco secondary to no GI coverage. He does recommend transfer. Case was discussed with Dr. Blanc at [facility] who will accept transfer. Was smoking cessation discussed for >3mins.? @ -No Was critical care preformed (if so, how long)? @ -No Were there social determinants of health that impacted care today? How? (Homelessness, low income, unemployed, alcoholism, drug addiction, transportation, low edu. Level, literacy, decrease access to med. care, long term, rehab)? @ -No Was there de-escalation of care discussed even if they declined (Discuss DNR or withdrawal of care, Hospice)? DNR status @ -No What co-morbidities impacted this encounter? (DM, HTN, Smoking, COPD, CAD, Cancer, CVA, ARF, Chemo, Hep., AIDS, mental health diagnosis, sleep apnea, morbid obesity)? @ -None Was patient admitted / discharged? Hospital course, mention meds given and route, prescriptions, significant lab abnormalities, going to OR and other pertinent info. @ -Patient will be transferred for GI care. Patient will need scope with probable dilation Undiagnosed new problem with uncertain prognosis? @ -No Drug Therapy requiring intensive monitoring for toxicity (Heparin, Nitro, Insulin, Cardizem)? @ -No Were any procedures done? @ -No Diagnosis/symptom? @ -Esophageal stricture Acute, or Chronic, or Acute on Chronic? @ -Acute Uncomplicated (without systemic symptoms) or Complicated (systemic symptoms)? @ -default Side effects of treatment? @ -No Exacerbation, Progression, or Severe Exacerbation? @ -No Poses a threat to life or bodily function? How? (Chest pain, [place], [place], pneumonia, PE, COPD, DKA, ARF, appy, cholecystitis, CVA, Diverticulitis, Homicidal, Suicidal, threat to staff... and all critical care pts) @ -No Disposition Clinical Impression: Esophageal stricture Disposition: OTHER INSTITUTION NOT DEFINED Is patient prescribed a controlled substance at d/c from ED?: No Referrals: Andry Hoyt DO [Primary Care Provider] - 1-2 days Time of Disposition: 17:15 - Out of Hospital Transfer - Req. Specs Out of Hospital Transfer - Requested Specifics: Other Emergency Center
[2022-11-29] MEDS ORDERED: FAMOTIDINE 20 MG/2 ML VIAL IV STA (17:03)
[2022-11-29] MEDS ORDERED: SODIUM CHLORIDE 0.9% 1,000 ML IV STA (17:03)
[2022-11-29] MEDS ORDERED: ONDANSETRON 4 MG/2 ML VIAL IVP STA (17:03)
[2022-11-29 18:50] VITALS: BP 162/95; PULSE 74
== END 2022-11-29 20:06 | disposition other institution (70) ==
LOC: EC 13:32
DX: K22.2 Esophageal obstruction (principal); I48.91 Unspecified atrial fibrillation; E11.9 Type 2 diabetes mellitus without complications; K21.9 Gastro-esophageal reflux disease without esophagitis; I10 Essential (primary) hypertension; M19.90 Unspecified osteoarthritis, unspecified site; F41.9 Anxiety disorder, unspecified; F32.A Depression, unspecified; Z86.73 Personal history of transient ischemic attack (TIA), and cerebral infarction without residual deficits; Z79.01 Long term (current) use of anticoagulants; Z79.84 Long term (current) use of oral hypoglycemic drugs; Z79.1 Long term (current) use of non-steroidal anti-inflammatories (NSAID); Z79.899 Other long term (current) drug therapy; Z88.1 Allergy status to other antibiotic agents; Z88.0 Allergy status to penicillin; Z88.2 Allergy status to sulfonamides; Z88.8 Allergy status to other drugs, medicaments and biological substances
CPT/HCPCS: 99284; 96374; 96375; 96361 ×3; J2405

== ENCOUNTER 2023-01-06 07:31 | Day surgery (SDC) | payer MEDICARE ==
[2023-01-04 11:30] VITALS: BMI 24.1
[2023-01-06] MEDS ORDERED: LIDOCAINE 1% (10MG/ML) FOR IV START INTRADERMA PRN (08:04)
[2023-01-06] MEDS ORDERED: LACTATED RINGERS 1,000 ML IV SCH (08:04)
[2023-01-06 08:21] VITALS: TEMP 98.1
[2023-01-06 08:32] LABS: Glucose,Whole Blood 147 mg/dL (70-110)
[2023-01-06] MEDS ORDERED: PROPOFOL 10 MG/ML 20 ML VIAL IV ONE (08:58)
[2023-01-06] MEDS ORDERED: LIDOCAINE 2% INJ 20 MG/ML (2 ML VIAL) ONE (08:58)
--- NOTE | 2023-01-06 09:08 | P.PCN ---
Date of Procedure: 01/06/23 Procedure(s) Performed: BRIEF HISTORY: Patient is a 87-year-old, pleasant, white female scheduled for an upper endoscopy as a part of evaluation of intermittent dysphagia to solids. She did have an episode of acute food impaction about a month ago and was transferred to [facility] and underwent an upper endoscopy at that time. Because of this ongoing intermittent dysphagia she is scheduled for an upper endoscopy with dilation today.. PROCEDURE PERFORMED: Esophagogastroduodenoscopy with balloon dilation. PREOPERATIVE DIAGNOSIS: Dysphagia to solids and recent episode of acute food impaction. IV sedation per anesthesia. PROCEDURE: After informed consent was obtained, the patient was brought into the endoscopy unit. IV sedation was administered by Anesthesia under continuous monitoring. Initially the Olympus GIF-140 video endoscope was inserted into the mouth. Esophagus intubated without any difficulty. It was gradually advanced into the stomach and duodenum and carefully examined. The bulb and the second part of the duodenum appeared normal. The scope at this time was withdrawn to the stomach, adequately insufflated with air, and upon careful examination, mucosa of the antrum, body, had diffuse gastritis. Mucosa of the cardia and the fundus appeared normal. The scope was then withdrawn into the esophagus. Small hiatal hernia noted. The GE junction was located at 36 cm from the incisors. There was a tight distal esophageal stricture noted and this was initially dil ated with 12 mm balloon for 30 seconds. No significant dilation was accomplished and hence it was dilated to 13.5 mm balloon for another 30 seconds and at this time there was some oozing identified and hence further dilation was not performed. The rest of the esophagus appeared normal. There were no erosions or ulcerations seen and the patient tolerated the procedure well. IMPRESSION: 1. Distal esophageal tight stricture status post balloon dilation using 12 and 13.5 mm TTS balloon for 60 seconds. 2. Small hiatal hernia. RECOMMENDATIONS: The findings of this examination were discussed with the patient as well as a family. She'll remain on a clear liquid diet for lunch today. Continue with omeprazole 20 mg daily and follow antireflux measures. Advised to remain on soft diet. Follow up in office in 3 months.
[2023-01-06 09:47] VITALS: BP 131/72; PULSE 70; RESP 18
== END 2023-01-06 10:04 | disposition home or self-care (01) ==
LOC: ORWHC2ENDO 07:31
PROVIDERS: ATTEND Internal Medicine Gastroenterology
DX: K22.2 Esophageal obstruction (principal); K29.70 Gastritis, unspecified, without bleeding; K44.9 Diaphragmatic hernia without obstruction or gangrene; I10 Essential (primary) hypertension; E78.5 Hyperlipidemia, unspecified; I48.91 Unspecified atrial fibrillation; I25.10 Atherosclerotic heart disease of native coronary artery without angina pectoris; M19.90 Unspecified osteoarthritis, unspecified site; K21.9 Gastro-esophageal reflux disease without esophagitis; Z88.5 Allergy status to narcotic agent; Z88.0 Allergy status to penicillin; Z79.01 Long term (current) use of anticoagulants; Z79.899 Other long term (current) drug therapy
CPT/HCPCS: 43249; J2704; J2001; C1726

== ENCOUNTER 2023-10-17 20:10 | Observation (INO) | payer MEDICARE, OTHER ==
--- NOTE | 2023-10-17 20:24 | ED ---
Neuro HPI - General Chief Complaint: Neuro Symptoms/Deficit Stated Complaint: Blurry vision,Hypertension Time Seen by Provider: 10/17/23 20:20 Source: patient, RN notes reviewed, old records reviewed Mode of arrival: ambulatory Limitations: no limitations - History of Present Illness Is the patient presenting with stroke symptoms?: No -: hour(s) Initial Comments: This is an 87-year-old female to the ER for evaluation today. Patient presents today for evaluation of significant weakness low blood pressure not feeling well dehydration and lightheadedness dizziness and overall not feeling well. Patient did make a statement that she feels like she is going to History of same: Yes Place: home Severity: mild Improves With: none Worsens With: none Context: gradual onset Associated Symptoms: confusion, loss of appetite, malaise, nausea/vomiting, weakness Treatments Prior to Arrival: none - Related Data Home Medications: Home Medications Medication Instructions Recorded Confirmed Apixaban [Eliquis] 2.5 mg PO BID 10/26/13 01/04/23 Brimonidine Tartrate/Timolol 1 drop BOTH EYES BID 10/26/13 01/04/23 [Combigan 0.2%/0.5% [facility]] LORazepam [Ativan] 0.5 mg PO DAILY PRN 10/26/13 01/04/23 metFORMIN HCL [Glucophage] 500 mg PO BID 10/26/13 01/04/23 amLODIPine [Norvasc] 5 mg PO BID 11/26/14 01/04/23 lamoTRIgine [LaMICtal] 200 mg PO BID 11/26/14 01/04/23 Calcium Carbonate [Calcium] 600 mg PO DAILY 08/05/16 01/04/23 Cholecalciferol [Vitamin D3 (25 1,000 unit PO DAILY 08/05/16 01/04/23 Mcg = 1000 Iu)] Sertraline [Zoloft] 100 mg PO BID 05/04/18 01/04/23 lisinopriL [Zestril] 10 mg PO QAM 05/23/18 01/04/23 OXcarbazepine [Trileptal] 150 mg PO HS 05/07/20 01/04/23 OXcarbazepine [Trileptal] 300 mg PO BID 05/07/20 01/04/23 Omeprazole [PriLOSEC] 20 mg PO BID 05/07/20 01/04/23 polyethylene glycoL 3350 [Miralax] 17 gm PO DAILY PRN 05/31/21 01/04/23 Nitroglycerin Sl Tabs [Nitrostat] 0.4 mg SUBLINGUAL Q5M PRN 10/04/21 01/04/23 nadoloL 40 mg PO BID 01/04/23 01/04/23 Allergies/Adverse Reactions: Allergies Allergy/AdvReac Type Severity Reaction Status Date / Time ciprofloxacin [From Cipro] Allergy Unknown Verified 10/17/23 20:17 ciprofloxacin HCl Allergy Unknown Verified 10/17/23 20:17 [From Cipro] metoprolol Allergy Unknown Verified 10/17/23 20:17 Penicillins Allergy Unknown Verified 10/17/23 20:17 Sulfa (Sulfonamide Allergy Unknown Verified 10/17/23 20:17 Antibiotics) Review of Systems ROS Statement: Those systems with pertinent positive or pertinent negative responses have been documented in the HPI. ROS Other: All systems not noted in ROS Statement are negative. General Exam Limitations: no limitations General appearance: alert, in no apparent distress Head exam: Present: atraumatic, normocephalic, normal inspection Eye exam: Present: normal appearance, PERRL, EOMI. Absent: scleral icterus, conjunctival injection, periorbital swelling ENT exam: Present: normal exam, mucous membranes moist Neck exam: Present: normal inspection. Absent: tenderness, meningismus, lymphadenopathy Respiratory exam: Present: normal lung sounds bilaterally. Absent: respiratory distress, wheezes, rales, rhonchi, stridor Cardiovascular Exam: Present: regular rate, normal rhythm, normal heart sounds. Absent: systolic murmur, diastolic murmur, rubs, gallop, clicks GI/Abdominal exam: Present: soft, normal bowel sounds. Absent: distended, tenderness, guarding, rebound, rigid Extremities exam: Present: normal inspection, full ROM, normal capillary refill. Absent: tenderness, pedal edema, joint swelling, calf tenderness Back exam: Present: normal inspection Neurological exam: Present: alert, oriented X3, CN II-XII intact Psychiatric exam: Present: normal affect, normal mood Skin exam: Present: warm, dry, intact, normal color. Absent: rash Stroke MDM - Lab Data Result diagrams: 10/17/23 20:40 10/17/23 20:40 Lab Results 10/17/23 10/17/23 10/17/23 Range/Units 20:25 20:40 20:40 WBC 9.4 (3.8-10.6) k/uL RBC 4.97 (3.80-5.40) m/uL Hgb 13.2 (11.4-16.0) gm/dL Hct 42.5 (34.0-46.0) % MCV 85.5 (80.0-100.0) fL MCH 26.5 (25.0-35.0) pg MCHC 31.0 (31.0-37.0) g/dL RDW 16.1 H (11.5-15.5) % Plt Count 333 (150-450) k/uL MPV 8.5 Neutrophils % 73 % Lymphocytes % 17 % Monocytes % 6 % Eosinophils % 2 % Basophils % 0 % Neutrophils # 6.8 (1.3-7.7) k/uL Lymphocytes # 1.6 (1.0-4.8) k/uL Monocytes # 0.6 (0-1.0) k/uL Eosinophils # 0.2 (0-0.7) k/uL Basophils # 0.0 (0-0.2) k/uL Hypochromasia Slight Anisocytosis Slight PT 10.2 (10.0-12.5) sec INR 0.9 (<1.2) APTT 23.2 (22.0-30.0) sec Sodium (137-145) mmol/L Potassium (3.5-5.1) mmol/L Chloride (98-107) mmol/L Carbon Dioxide (22-30) mmol/L Anion Gap mmol/L BUN (7-17) mg/dL Creatinine (0.52-1.04) mg/dL Est GFR (CKD-EPI)AfAm (>60 ml/min/1.73 sqM) Est GFR (CKD-EPI)NonAf (>60 ml/min/1.73 sqM) Glucose (74-99) mg/dL POC Glucose (mg/dL) 226 H (70-110) mg/dL POC Glu Garment Worker ID Sarah Pathak Plasma Lactic Acid [place]ora (0.7-2.0) mmol/L Calcium (8.4-10.2) mg/dL Phosphorus (2.5-4.5) mg/dL Magnesium (1.6-2.3) mg/dL Total Bilirubin (0.2-1.3) mg/dL AST (14-36) U/L ALT (4-34) U/L Alkaline Phosphatase (38-126) U/L Troponin I (0.000-0.034) ng/mL Total Protein (6.3-8.2) g/dL Albumin (3.5-5.0) g/dL Urine Color Urine Appearance (Clear) Urine pH (5.0-8.0) Ur Specific [place] (1.001-1.035) Urine Protein (Negative) Urine Glucose (UA) (Negative) Urine Ketones (Negative) Urine Blood (Negative) Urine Nitrite (Negative) Urine Bilirubin (Negative) Urine Urobilinogen (<2.0) mg/dL Ur Leukocyte Esterase (Negative) Urine RBC (0-5) /hpf Urine WBC (0-5) /hpf Ur Squamous Epith Cells (0-4) /hpf Amorphous Sediment (None) /hpf Urine Bacteria (None) /hpf Hyaline Casts (0-2) /lpf Urine Mucus (None) /hpf 10/17/23 10/17/23 10/17/23 Range/Units 20:40 20:40 20:40 WBC (3.8-10.6) k/uL RBC (3.80-5.40) m/uL Hgb (11.4-16.0) gm/dL Hct (34.0-46.0) % MCV (80.0-100.0) fL MCH (25.0-35.0) pg MCHC (31.0-37.0) g/dL RDW (11.5-15.5) % Plt Count (150-450) k/uL MPV Neutrophils % % Lymphocytes % % Monocytes % % Eosinophils % % Basophils % % Neutrophils # (1.3-7.7) k/uL Lymphocytes # (1.0-4.8) k/uL Monocytes # (0-1.0) k/uL Eosinophils # (0-0.7) k/uL Basophils # (0-0.2) k/uL Hypochromasia Anisocytosis PT (10.0-12.5) sec INR (<1.2) APTT (22.0-30.0) sec Sodium 135 L (137-145) mmol/L Potassium 4.8 (3.5-5.1) mmol/L Chloride 100 (98-107) mmol/L Carbon Dioxide 24 (22-30) mmol/L Anion Gap 11 mmol/L BUN 24 H (7-17) mg/dL Creatinine 0.89 (0.52-1.04) mg/dL Est GFR (CKD-EPI)AfAm 67 (>60 ml/min/1.73 sqM) Est GFR (CKD-EPI)NonAf 58 (>60 ml/min/1.73 sqM) Glucose 206 H (74-99) mg/dL POC Glucose (mg/dL) (70-110) mg/dL POC Glu Garment Worker ID Plasma Lactic Acid Bora 3.1 H* (0.7-2.0) mmol/L Calcium 9.7 (8.4-10.2) mg/dL Phosphorus (2.5-4.5) mg/dL Magnesium (1.6-2.3) mg/dL Total Bilirubin 0.3 (0.2-1.3) mg/dL AST 22 (14-36) U/L ALT 16 (4-34) U/L Alkaline Phosphatase 111 (38-126) U/L Troponin I <0.012 (0.000-0.034) ng/mL Total Protein 7.2 (6.3-8.2) g/dL Albumin 4.5 (3.5-5.0) g/dL Urine Color Urine Appearance (Clear) Urine pH (5.0-8.0) Ur Specific [place] (1.001-1.035) Urine Protein (Negative) Urine Glucose (UA) (Negative) Urine Ketones (Negative) Urine Blood (Negative) Urine Nitrite (Negative) Urine Bilirubin (Negative) Urine Urobilinogen (<2.0) mg/dL Ur Leukocyte Esterase (Negative) Urine RBC (0-5) /hpf Urine WBC (0-5) /hpf Ur Squamous Epith Cells (0-4) /hpf Amorphous Sediment (None) /hpf Urine Bacteria (None) /hpf Hyaline Casts (0-2) /lpf Urine Mucus (None) /hpf 10/17/23 10/17/23 Range/Units 21:43 22:38 WBC (3.8-10.6) k/uL RBC (3.80-5.40) m/uL Hgb (11.4-16.0) gm/dL Hct (34.0-46.0) % MCV (80.0-100.0) fL MCH (25.0-35.0) pg MCHC (31.0-37.0) g/dL RDW (11.5-15.5) % Plt Count (150-450) k/uL MPV Neutrophils % % Lymphocytes % % Monocytes % % Eosinophils % % Basophils % % Neutrophils # (1.3-7.7) k/uL Lymphocytes # (1.0-4.8) k/uL Monocytes # (0-1.0) k/uL Eosinophils # (0-0.7) k/uL Basophils # (0-0.2) k/uL Hypochromasia Anisocytosis PT (10.0-12.5) sec INR (<1.2) APTT (22.0-30.0) sec Sodium (137-145) mmol/L Potassium (3.5-5.1) mmol/L Chloride (98-107) mmol/L Carbon Dioxide (22-30) mmol/L Anion Gap mmol/L BUN (7-17) mg/dL Creatinine (0.52-1.04) mg/dL Est GFR (CKD-EPI)AfAm (>60 ml/min/1.73 sqM) Est GFR (CKD-EPI)NonAf (>60 ml/min/1.73 sqM) Glucose (74-99) mg/dL POC Glucose (mg/dL) (70-110) mg/dL POC Glu Garment Worker ID Plasma Lactic Acid Bora (0.7-2.0) mmol/L Calcium (8.4-10.2) mg/dL Phosphorus 4.3 (2.5-4.5) mg/dL Magnesium 1.9 (1.6-2.3) mg/dL Total Bilirubin (0.2-1.3) mg/dL AST (14-36) U/L ALT (4-34) U/L Alkaline Phosphatase (38-126) U/L Troponin I (0.000-0.034) ng/mL Total Protein (6.3-8.2) g/dL Albumin (3.5-5.0) g/dL Urine Color Yellow Urine Appearance Cloudy H (Clear) Urine pH 5.5 (5.0-8.0) Ur Specific [place] 1.024 (1.001-1.035) Urine Protein 1+ H (Negative) Urine Glucose (UA) 1+ H (Negative) Urine Ketones Negative (Negative) Urine Blood Negative (Negative) Urine Nitrite Negative (Negative) Urine Bilirubin Negative (Negative) Urine Urobilinogen <2.0 (<2.0) mg/dL Ur Leukocyte Esterase Small H (Negative) Urine RBC 5 (0-5) /hpf Urine WBC 13 H (0-5) /hpf Ur Squamous Epith Cells 3 (0-4) /hpf Amorphous Sediment Few H (None) /hpf Urine Bacteria Rare H (None) /hpf Hyaline Casts 122 H (0-2) /lpf Urine Mucus Few H (None) /hpf - NIH Stroke Scale 1a. Level of Consciousness: (0) alert 1b. LOC Questions: (0) answers correctly 1c. LOC Commands: (0) performs tasks correctly 2. Best Gaze: (0) normal 3. Visual: (0) no visual loss 4. Facial Palsy: (0) normal symmetrical movement 5a. Motor Arm Left: (0) no drift 5b. Motor Arm Right: (0) no drift 6a. Motor Leg Left: (0) no drift 6b. Motor Leg Right: (0) no drift 7. Limb Ataxia: (0) absent 8. Sensory: (0) normal 9. Best Language: (0) no aphasia 10. Dysarthria: (0) normal 11. Extinction/Inattention: (0) no abnormality - Thrombolytic Inclusion/Exclusion Thrombolytic Exclusion Criteria: Symptom Onset > 4.5 Hours - Medical Decision Making 87 female to ER for evaluation of severe weakness and dehydration. Patient will be admitted for further fluid sensation - Radiology Data Radiology results: report reviewed (Strays negative for acute disease), image reviewed - EKG Data -: EKG Interpreted by Me (EKG is A-fib 74 QRS 100 QTc 421) Past Medical History Past Medical History: Atrial Fibrillation, Chest Pain / Angina, CVA/TIA, Diabetes Mellitus, Eye Disorder, GERD/Reflux, Hearing Disorder / Deafness, Hyperlipidemia, Hypertension, Memory Impairment, Osteoarthritis (OA), Seizure Disorder Additional Past Medical History / Comment(s): Neuropathy bilateral feet. Dysph agia with esophageal stricture. Bilateral glaucoma. Hx TIA yrs ago. Chronic constipation. Hearing aids. Last seizure 6-8 months ago. Dementia mild. History of Any Multi-Drug Resistant Organisms: None Reported Past Surgical History: Cholecystectomy, Hysterectomy, Orthopedic Surgery Additional Past Surgical History / Comment(s): EGD and multiple dilations, EGD with foreign body removal, colonoscopy, hemorrhoidectomy, bilateral cataract removal/lens implants, thyroid nodules removed, right ankle ORIF. Past Anesthesia/Blood Transfusion Reactions: No Reported Reaction Past Psychological History: Anxiety, Depression Smoking Status: Never smoker Past Alcohol Use History: None Reported Past Drug Use History: None Reported - Past Family History Brother(s) Family Medical History: Cancer Sister(s) Family Medical History: Cancer Additional Family Medical History / Comment(s): MULTIPLE SISTERS WITH CANCER. Mother Family Medical History: Cancer Course Vital Signs 10/17/23 20:15 Temperature 98.2 F Pulse Rate 82 Respiratory 18 Rate Blood Pressure 147/62 O2 Sat by Pulse 98 Oximetry - Reevaluation(s) Reevaluation #1: 10/17/23 23:04 Records reviewed Reevaluation #2: 10/17/23 23:04 Patient symptoms are unchanged still feeling weak lightheaded with borderline low blood pressure Reevaluation #3: 10/17/23 23:05 Informed results and questions answered Reevaluation #5: Differential Weakness: Hypoglycemia, shock, sepsis, hyponatremia, anemia, infection, SD, ETOH, adverse medicine reaction, overdose, stroke, this is not meant to be an all-inclusive list. - Consultations Consultation #1: Spoke with Dr. Camejo agrees to admit this patient Disposition Clinical Impression: Dehydration Disposition: HOME SELF-CARE Condition: Good Instructions (If sedation given, give patient instructions): Dehydration (ED) Is patient prescribed a controlled substance at d/c from ED?: No Referrals: Andry Hoyt DO [Primary Care Provider] - 1-2 days Time of Disposition: 23:00
[2023-10-17 20:31] LABS: Glucose,Whole Blood 226 mg/dL (70-110)
[2023-10-17 21:26] LABS: Anisocytosis Slight; Basophils % (A) 0 %; Eosinophils # (A) 0.2 k/uL (0-0.7); Eosinophils % (A) 2 %; HCT 42.5 % (34.0-46.0); HGB 13.2 gm/dL (11.4-16.0); Hypochromasia Slight; Lymphocytes # (A) 1.6 k/uL (1.0-4.8); Lymphocytes % (A) 17 %; MCH 26.5 pg (25.0-35.0); MCV 85.5 fL (80.0-100.0); Mean Platelet Volume 8.5; Monocytes # (A) 0.6 k/uL (0-1.0); Monocytes % (A) 6 %; Neutrophils # (A) 6.8 k/uL (1.3-7.7); Neutrophils % (A) 73 %; Platelet Count 333 k/uL (150-450); RBC 4.97 m/uL (3.80-5.40); RDW 16.1 % (11.5-15.5); WBC 9.4 k/uL (3.8-10.6)
[2023-10-17 21:44] LABS: ALT 16 U/L (4-34); AST 22 U/L (14-36); African American GFR (CKD) 67 (>60 ml/min/1.73 sqM); Albumin 4.5 g/dL (3.5-5.0); Alkaline Phosphatase 111 U/L (38-126); Anion Gap 11 mmol/L; Blood Urea Nitrogen 24 mg/dL (7-17); Calcium 9.7 mg/dL (8.4-10.2); Carbon Dioxide 24 mmol/L (22-30); Chloride 100 mmol/L (98-107); Glucose 206 mg/dL (74-99); Non-African American GFR(CKD) 58 (>60 ml/min/1.73 sqM); Potassium 4.8 mmol/L (3.5-5.1); Sodium 135 mmol/L (137-145); Total Bilirubin 0.3 mg/dL (0.2-1.3); Total Protein 7.2 g/dL (6.3-8.2)
[2023-10-17 22:01] LABS: INR 0.9 (<1.2); Partial Thromboplastin Time 23.2 sec (22.0-30.0); Prothrombin Time 10.2 sec (10.0-12.5)
[2023-10-17 22:15] LABS: Magnesium 1.9 mg/dL (1.6-2.3); Phosphorus 4.3 mg/dL (2.5-4.5)
[2023-10-17] MEDS: SODIUM CHLORIDE 0.9% 1,000 ML IV STA (22:18)
[2023-10-17 22:57] LABS: Amorphous Sediment,Urine Few /hpf; Appearance,Urine Cloudy (Clear); Bacteria,Urine Rare /hpf; Bilirubin,Urine Negative (Negative); Blood,Urine Negative (Negative); Color,Urine Yellow; Glucose,Urine (UA) 1+ (Negative); Hyaline Casts,Urine 122 /lpf (0-2); Ketones,Urine Negative (Negative); Leukocyte Esterase,Urine Small (Negative); Mucus,Urine Few /hpf; Nitrite,Urine Negative (Negative); PH, Urine 5.5 (5.0-8.0); Protein,Urine 1+ (Negative); RBC,Urine 5 /hpf (0-5); Specific Gravity,Urine 1.024 (1.001-1.035); Squamous Epithelial Cell,Urine 3 /hpf (0-4); Urobilinogen,Urine <2.0 mg/dL (<2.0); WBC,Urine 13 /hpf (0-5)
[2023-10-17] MEDS ORDERED: NALOXONE 0.4 MG/ML 1 ML VIAL IV PRN (23:03)
[2023-10-17] MEDS ORDERED: MORPHINE SULFATE 4 MG/ML SYRINGE IV PRN (23:03)
[2023-10-17] MEDS ORDERED: ONDANSETRON 4 MG/2 ML VIAL IVP PRN (23:03)
[2023-10-17] MEDS: SODIUM CHLORIDE 0.9% 1,000 ML IV SCH (23:10)
[2023-10-17] MEDS: SODIUM CHLORIDE 0.9% 500 ML 500 ML IV STA ×2 (23:10→23:14)
[2023-10-18 07:09] LABS: Anisocytosis Slight; Basophils % (A) 1 %; Eosinophils # (A) 0.2 k/uL (0-0.7); Eosinophils % (A) 3 %; HCT 36.7 % (34.0-46.0); HGB 11.6 gm/dL (11.4-16.0); Hypochromasia Slight; Lymphocytes # (A) 1.6 k/uL (1.0-4.8); Lymphocytes % (A) 21 %; MCHC 31.6 g/dL (31.0-37.0); MCV 85.3 fL (80.0-100.0); Mean Platelet Volume 8.2; Monocytes # (A) 0.4 k/uL (0-1.0); Monocytes % (A) 5 %; Neutrophils # (A) 5.2 k/uL (1.3-7.7); Neutrophils % (A) 69 %; Platelet Count 266 k/uL (150-450); RBC 4.31 m/uL (3.80-5.40); RDW 16.3 % (11.5-15.5); WBC 7.5 k/uL (3.8-10.6)
[2023-10-18 07:18] LABS: ALT 14 U/L (4-34); AST 21 U/L (14-36); African American GFR (CKD) >90 (>60 ml/min/1.73 sqM); Albumin 3.8 g/dL (3.5-5.0); Alkaline Phosphatase 101 U/L (38-126); Anion Gap 7 mmol/L; Blood Urea Nitrogen 17 mg/dL (7-17); Calcium 8.8 mg/dL (8.4-10.2); Carbon Dioxide 22 mmol/L (22-30); Chloride 110 mmol/L (98-107); Glucose 126 mg/dL (74-99); Magnesium 1.8 mg/dL (1.6-2.3); Non-African American GFR(CKD) 86 (>60 ml/min/1.73 sqM); Phosphorus 3.6 mg/dL (2.5-4.5); Potassium 4.1 mmol/L (3.5-5.1); Sodium 139 mmol/L (137-145); Total Bilirubin 0.3 mg/dL (0.2-1.3); Total Protein 6.1 g/dL (6.3-8.2)
[2023-10-18] MEDS: PANTOPRAZOLE 40 MG/10 ML VIAL IV SCH (10:08)
[2023-10-18] MEDS ORDERED: ACETAMINOPHEN TAB 325 MG TAB PO PRN (10:15)
[2023-10-18] MEDS ORDERED: MELATONIN 3 MG TABLET PO PRN (10:15)
[2023-10-18] MEDS ORDERED: CALCIUM CARBONATE 500 MG CHEWABLE PO PRN (10:15)
[2023-10-18] MEDS ORDERED: ALPRAZolam 0.25 MG TAB PO PRN (10:15)
[2023-10-18] MEDS ORDERED: NITROGLYCERIN SL TABS 0.4 MG TAB SUBLINGUAL PRN (11:15)
[2023-10-18] MEDS ORDERED: LORazepam 0.5 MG TAB PO PRN (11:15)
[2023-10-18] MEDS: LACTULOSE 20 GM/30 ML CUP PO PRN (12:38)
[2023-10-18] MEDS: lamoTRIgine 100 MG TAB PO SCH (12:41)
[2023-10-18] MEDS: polyethylene glycoL 3350 17 GM POWD.PACK PO PRN (12:41)
[2023-10-18] MEDS: APIXABAN 2.5 MG TABLET PO SCH (12:41)
[2023-10-18] MEDS: CHOLECALCIFEROL 25 MCG (1000 IU) TABLET PO SCH (12:45)
[2023-10-18] MEDS: metFORMIN 500 MG TAB PO SCH (12:47)
[2023-10-18] MEDS: TIMOLOL 0.5% OPHTH DROPS 5 ML BTL BOTH EYES SCH (12:48)
[2023-10-18] MEDS: BRIMONIDINE TARTRATE 0.2% DROPS 5 ML BTL BOTH EYES SCH (12:48)
[2023-10-18] MEDS: OXcarbazepine 300 MG TAB PO SCH ×2 (13:00→13:16)
[2023-10-18] MEDS: ENOXAPARIN 40 MG/0.4 ML SYRINGE SQ SCH (13:16)
[2023-10-18 17:19] LABS: Glucose,Whole Blood 136 mg/dL (70-110)
--- NOTE | 2023-10-18 17:41 | P.HPIM ---
History of Present Illness H&P Date: 10/18/23 Chief Complaint: Not feeling well This is a pleasant 87-year-old patient who follows with Dr. Hoyt. Chronic stable medical conditions include atrial fibrillation, diabetes, GERD, hard of hearing, hypertension, hyperlipidemia, some cognitive impairment, seizure disorder, bilateral neuropathy in the feet, history of esophageal stricture causing dysphagia,. Patient also been seen by Dr. Kinney from neurology. [place] to have early Parkinson's tremor. Patient lives at home with her daughter Crys and son-in-law. Disease a walker. Patient yesterday had an episode that she felt she was dying. [place] a pressure in the chest. TV was blurring. Blood pressure was found to be 90-70 systolic. Took nitroglycerin and felt better. This morning patient feels nearly back to baseline. Daughter at the bedside. No leg swelling. No fever no chills. Review of systems: GEN.: Tired EYES: None HEENT: Decreased hearing e NECK: None RESPIRATORY: None CARDIOVASCULAR: As above GASTROINTESTINAL: None GENITOURINARY: None MUSCULOSKELETAL: Some joint pains LYMPHATICS: None HEMATOLOGICAL: None PSYCHIATRY: Bit forgetful NEUROLOGICAL: None Social history: Denies any history of smoking alcohol. Does use a walker. Lives with daughter and son-in-law. Physical examination: VITAL SIGNS: 97.8, 54, 16, 147 x 74, 97% room air GENERAL: BMI 24.1,. Reclining bed awake comfortable EYES: Pupils equal. Conjunctiva niurka l. HEENT: External appearance of nose and ears normal, oral cavity grossly normal. Hard of hearing NECK: JVD not raised; masses not palpable. HEART: First and second heart sounds are normal; no edema. LUNGS: Respiratory rate normal; clear to auscultation. ABDOMEN: Soft, nontender, liver spleen not palpable, no masses palpable. PSYCH: Alert and oriented x3; mood and affect niurka l. Slightly forgetful MUSCULOSKELETAL:No Clubbing/cyanosis;muscles-grossly intact. OA NEUROLOGICAL: Cranial nerves grossly intact; no facial asymmetry, power and sensation grossly intact. Pill-rolling movement at rest LYMPHATICS: No lymph nodes palpable in the axilla and neck INVESTIGATIONS, reviewed in the clinical context: October 18, 2023: White count 7.5 hemoglobin 11.6 platelet 266 sodium 139 potassium 4.1 BUN 17 creatinine 0.52 Troponin I less than 0.012. D-dimer 0.22 October 17, 2023: White count 9.5 globin 13.2 potassium 4.8 BUN 24 creatinine 0.89 lactic acid 3.1 blood glucose 206 troponin I less than 0.012 magnesium 1.9 EKG tracing personally reviewed by me-atrial fibrillation. Rate 74 Assessment and plan: -Possible hypotension: Patient has an episode of some chest pressure. Some blurriness of vision. Accompanied by hypotension. Blood pressure systolic measured at home was 98-70 systolic. Note patient's BUN was elevated. Will hold off patient's amlodipine and lisinopril.-Now Troponin negative Given IV fluids -Persistent atrial fibrillation rate control Nadolol 40 mg twice daily.. 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 Follow Accu-Cheks -DNR Care was discussed with the patient and daughter at the bedside. Hold off lisinopril and amlodipine Advance care planning [October 18, 2023] End-of-life care was discussed with the patient and daughter at the bedside. After much discussion patient has decided to proceed to be a DNR. Daughter supports that. Daughter is the POA. Questions answered. Time spent about 25 minutes Past Medical History Past Medical History: Atrial Fibrillation, Chest Pain / Angina, CVA/TIA, Diabete s Mellitus, Eye Disorder, GERD/Reflux, Hearing Disorder / Deafness, Hyperlipidemia, Hypertension, Memory Impairment, Osteoarthritis (OA), Seizure Disorder Additional Past Medical History / Comment(s): Neuropathy bilateral feet. Dysphagia with esophageal stricture. Bilateral glaucoma. Hx TIA yrs ago. Chronic constipation. Hearing aids. Last seizure 6-8 months ago. Dementia mild. History of Any Multi-Drug Resistant Organisms: None Reported Past Surgical History: Cholecystectomy, Hysterectomy, Orthopedic Surgery Additional Past Surgical History / Comment(s): EGD and multiple dilations, EGD with foreign body removal, colonoscopy, hemorrhoidectomy, bilateral cataract removal/lens implants, thyroid nodules removed, right ankle ORIF. Past Anesthesia/Blood Transfusion Reactions: No Reported Reaction Past Psychological History: Anxiety, Depression Additional Psychological History / Comment(s): Lives at home with daughter Crys and son-in-law. Mild Dementia. Smoking Status: Never smoker Past Alcohol Use History: None Reported Past Drug Use History: None Reported - Past Family History Brother(s) Family Medical History: Cancer Sister(s) Family Medical History: Cancer Additional Family Medical History / Comment(s): MULTIPLE SISTERS WITH CANCER. Mother Family Medical History: Cancer Medications and Allergies Home Medications Medication Instructions Recorded Confirmed Type Apixaban [Eliquis] 2.5 mg PO BID 10/26/13 10/18/23 History Brimonidine Tartrate/Timolol 1 drop BOTH EYES BID 10/26/13 10/18/23 History [Combigan 0.2%/0.5% Ophth Soln] metFORMIN HCL [Glucophage] 500 mg PO BID 10/26/13 10/18/23 History amLODIPine [Norvasc] 5 mg PO BID 11/26/14 10/18/23 History lamoTRIgine [LaMICtal] 200 mg PO BID 11/26/14 10/18/23 History Calcium Carbonate [Calcium] 600 mg PO DAILY 08/05/16 10/18/23 History Sertraline [Zoloft] 100 mg PO HS 05/04/18 10/18/23 History lisinopriL [Zestril] 10 mg PO QAM 05/23/18 10/18/23 History OXcarbazepine [Trileptal] 150 mg PO HS 05/07/20 10/18/23 History OXcarbazepine [Trileptal] 300 mg PO AC-BID 05/07/20 10/18/23 History Omeprazole [PriLOSEC] 20 mg PO BID 05/07/20 10/18/23 History polyethylene glycoL 3350 [Miralax] 17 gm PO DAILY PRN 05/31/21 10/18/23 History Nitroglycerin Sl Tabs [Nitrostat] 0.4 mg SUBLINGUAL Q5M PRN 10/04/21 10/18/23 History nadoloL 40 mg PO BID 01/04/23 10/18/23 History Cholecalciferol [Vitamin D3 (25 25 mcg PO DAILY 10/18/23 10/18/23 History Mcg = 1000 Iu)] LORazepam [Ativan] 0.5 mg PO HS 10/18/23 10/18/23 History LORazepam [Ativan] 0.5 mg PO Q8H PRN 10/18/23 10/18/23 History Allergies Allergy/AdvReac Type Severity Reaction Status Date / Time metoprolol Allergy Unknown Verified 10/18/23 10:44 ciprofloxacin [From Cipro] AdvReac Chest Verified 10/18/23 10:44 pressure ciprofloxacin HCl AdvReac Chest Verified 10/18/23 10:44 [From Cipro] pressure Penicillins AdvReac Chest Verified 10/18/23 10:44 pressure Sulfa (Sulfonamide AdvReac Chest Verified 10/18/23 10:44 Antibiotics) pressure Physical Exam Vitals: Vital Signs Temp Pulse Pulse Resp BP BP BP 10/18/23 07:00 97.8 F 54 L 16 147/74 10/18/23 02:00 97.7 F 60 17 136/77 10/18/23 00:05 97.5 F L 60 17 178/65 10/17/23 23:30 72 16 130/68 10/17/23 22:17 77 16 117/78 10/17/23 21:17 76 16 125/72 10/17/23 20:15 98.2 F 82 18 147/62 Pulse Ox 10/18/23 07:00 97 10/18/23 02:00 97 10/18/23 00:05 97 10/17/23 23:30 96 10/17/23 22:17 95 10/17/23 21:17 95 10/17/23 20:15 98 Intake and Output 10/17/23 10/18/23 10/18/23 22:59 06:59 14:59 Other: Voiding Method Toilet Diaper # Voids 2 Weight 65.771 kg 65.771 kg Results CBC & Chem 7: 10/18/23 06:24 10/18/23 06:24 Labs: Abnormal Lab Results - Last 24 Hours (Table) 10/17/23 10/17/23 10/17/23 Range/Units 20:25 20:40 20:40 RDW 16.1 H (11.5-15.5) % Sodium 135 L (137-145) mmol/L Chloride (98-107) mmol/L BUN 24 H (7-17) mg/dL Glucose 206 H (74-99) mg/dL POC Glucose (mg/dL) 226 H (70-110) mg/dL Plasma Lactic Acid [place] (0.7-2.0) mmol/L Total Protein (6.3-8.2) g/dL Urine Appearance (Clear) Urine Protein (Negative) Urine Glucose (UA) (Negative) Ur Leukocyte Esterase (Negative) Urine WBC (0-5) /hpf Amorphous Sediment (None) /hpf Urine Bacteria (None) /hpf Hyaline Casts (0-2) /lpf Urine Mucus (None) /hpf 10/17/23 10/17/23 10/18/23 Range/Units 20:40 22:38 06:24 RDW 16.3 H (11.5-15.5) % Sodium (137-145) mmol/L Chloride (98-107) mmol/L BUN (7-17) mg/dL Glucose (74-99) mg/dL POC Glucose (mg/dL) (70-110) mg/dL Plasma Lactic Acid [place]ora 3.1 H* (0.7-2.0) mmol/L Total Protein (6.3-8.2) g/dL Urine Appearance Cloudy H (Clear) Urine Protein 1+ H (Negative) Urine Glucose (UA) 1+ H (Negative) Ur Leukocyte Esterase Small H (Negative) Urine WBC 13 H (0-5) /hpf Amorphous Sediment Few H (None) /hpf Urine Bacteria Rare H (None) /hpf Hyaline Casts 122 H (0-2) /lpf Urine Mucus Few H (None) /hpf 10/18/23 Range/Units 06:24 RDW (11.5-15.5) % Sodium (137-145) mmol/L Chloride 110 H (98-107) mmol/L BUN (7-17) mg/dL Glucose 126 H (74-99) mg/dL POC Glucose (mg/dL) (70-110) mg/dL Plasma Lactic Acid [place] (0.7-2.0) mmol/L Total Protein 6.1 L (6.3-8.2) g/dL Urine Appearance (Clear) Urine Protein (Negative) Urine Glucose (UA) (Negative) Ur Leukocyte Esterase (Negative) Urine WBC (0-5) /hpf Amorphous Sediment (None) /hpf Urine Bacteria (None) /hpf Hyaline Casts (0-2) /lpf Urine Mucus (None) /hpf
[2023-10-18] MEDS: LISINOPRIL-HCTZ 10-12.5 MG 1 EACH TAB PO SCH (17:53)
[2023-10-18] MEDS: PANTOPRAZOLE 40 MG TABLET PO SCH (19:58)
[2023-10-18] MEDS: LORazepam 0.5 MG TAB PO SCH (19:58)
[2023-10-18] MEDS: SERTRALINE 100 MG TAB PO SCH (19:58)
[2023-10-18 20:25] LABS: Glucose,Whole Blood 168 mg/dL (70-110)
[2023-10-18] MEDS ORDERED: OXcarbazepine 150 MG TAB PO SCH (21:00)
[2023-10-19 06:20] LABS: Glucose,Whole Blood 135 mg/dL (70-110)
[2023-10-19] MEDS: metFORMIN 500 MG TAB PO SCH (09:07)
[2023-10-19] MEDS: METOPROLOL TARTRATE 50 MG TAB PO SCH (09:07)
[2023-10-19] MEDS: amLODIPine 5 MG TAB PO SCH (09:08)
[2023-10-19] MEDS: ISOSORBIDE MONONITRATE ER 30 MG TAB.ER.24H PO SCH (09:08)
[2023-10-19 13:09] VITALS: BP 149/68; PULSE 69; RESP 15; TEMP 97.9
--- NOTE | 2023-10-19 17:21 | P.DS ---
Providers Date of admission: 10/17/23 23:04 Expected date of discharge: 10/19/23 Attending physician: Omar Ledesma Consults: 10/18/23 19:17 Consult Physician Routine Consulting Provider: Ky Rice Consult Reason/Comments: afib Do you want consulting provider notified?: Yes Primary care physician: [facility] Course: Chief Complaint: Not feeling well This is a pleasant 87-year-old patient who follows with Dr. Hoyt. Chronic stable medical conditions include atrial fibrillation, diabetes, GERD, hard of hearing, hypertension, hyperlipidemia, some cognitive impairment, seizure disorder, bilateral neuropathy in the feet, history of esophageal stricture causing dysphagia,. Patient also been seen by Dr. Kinney from neurology. [place] to have early Parkinson's tremor. Patient lives at home with her daughter Crys and son-in-law. Disease a walker. Patient yesterday had an episode that she felt she was dying. [place] a pressure in the chest. TV was blurring. Blood pressure was found to be 90-70 systolic. Took nitroglycerin and felt better. This morning patient feels nearly back to baseline. Daughter at the bedside. No leg swelling. No fever no chills. October 18: Patient felt to have angina and some [id number] initially.. Subsequently blood pressure went up. Medications have been adjusted. Patient doing well today. Discussed. Prescriptions were done. Patient is to follow-up with her finance insurance manager. No episodes of chest pain. Imdur added Discussion and discharge planning more than 35 minutes Social history: Denies any history of smoking alcohol. Does use a walker. Lives with daughter and son-in-law. Physical examination: VITAL SIGNS: 97.9, 69, 15, 149/68, 93% room air GENERAL: Sitting up in bed, comfortable EYES: Pupils equal. Conjunctiva niurka l. HEENT: External appearance of nose and ears normal, oral cavity grossly normal. Hard of hearing NECK: JVD not raised; masses not palpable. HEART: First and second heart sounds are normal; no edema. LUNGS: Respiratory rate normal; clear to auscultation. ABDOMEN: Soft, nontender, liver spleen not palpable, no masses palpable. PSYCH: Alert and oriented x3; mood and affect niurka l. Slightly forgetful MUSCULOSKELETAL:No Clubbing/cyanosis;muscles-grossly intact. OA NEUROLOGICAL: Cranial nerves grossly intact; no facial asymmetry, power and sensation grossly intact. Pill-rolling movement at rest INVESTIGATIONS, reviewed in the clinical context: October 18, 2023: White count 7.5 hemoglobin 11.6 platelet 266 sodium 139 potassium 4.1 BUN 17 creatinine 0.52 Troponin I less than 0.012. D-dimer 0.22 October 17, 2023: White count 9.5 globin 13.2 potassium 4.8 BUN 24 creatinine 0.89 lactic acid 3.1 blood glucose 206 troponin I less than 0.012 magnesium 1.9 EKG tracing personally reviewed by me-atrial fibrillation. Rate 74 Assessment and plan: -Possible hypotension: Patient has an episode of some chest pressure. Some blur riness of vision. Accompanied by hypotension. Blood pressure systolic measured at home was 98-70 systolic. Note patient's BUN was elevated. Amlodipine dose cut back. Nadolol changed to Lopressor Troponin negative Given IV fluids -Probable angina Imdur added -Persistent atrial fibrillation rate control Nadolol changed over to Lopressor Eliquis. 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 Follow Accu-Cheks -DNR Advance care planning [October 18, 2023] End-of-life care was discussed with the patient and daughter at the bedside. After much discussion patient has decided to proceed to be a DNR. Daughter supports that. Daughter is the POA. Questions answered. Time spent about 25 minutes Disposition: Home Past Medical History Past Medical History: Atrial Fibrillation, Chest Pain / Angina, CVA/TIA, Diabetes Mellitus, Eye Disorder, GERD/Reflux, Hearing Disorder / Deafness, Hyperlipidemia, Hypertension, Memory Impairment, Osteoarthritis (OA), Seizure Disorder Additional Past Medical History / Comment(s): Neuropathy bilateral feet. Dysphagia with esophageal stricture. Bilateral glaucoma. Hx TIA yrs ago. Chronic constipation. Hearing aids. Last seizure 6-8 months ago. Dementia mild. History of Any Multi-Drug Resistant Organisms: None Reported Past Surgical History: Cholecystectomy, Hysterectomy, Orthopedic Surgery Additional Past Surgical History / Comment(s): EGD and multiple dilations, EGD with foreign body removal, colonoscopy, hemorrhoidectomy, bilateral cataract removal/lens implants, thyroid nodules removed, right ankle ORIF. Past Anesthesia/Blood Transfusion Reactions: No Reported Reaction Past Psychological History: Anxiety, Depression Additional Psychological History / Comment(s): Lives at home with daughter Crys and son-in-law. Mild Dementia. Smoking Status: Never smoker Past Alcohol Use History: None Reported Past Drug Use History: None Reported Plan - Discharge Summary New Discharge Prescriptions: New Metoprolol Tartrate [Lopressor] 50 mg PO BID #60 tab Lisinopril-Hctz 10-12.5 mg [Zestoretic 10-12.5] 1 each PO BID #60 tab Isosorbide Mononitrate ER [Imdur] 30 mg PO DAILY #30 tab Continue Brimonidine Tartrate/Timolol [Combigan 0.2%/0.5% Ophth Soln] 1 drop BOTH EYES BID Apixaban [Eliquis] 2.5 mg PO BID metFORMIN HCL [Glucophage] 500 mg PO BID lamoTRIgine [LaMICtal] 200 mg PO BID Calcium Carbonate [Calcium] 600 mg PO DAILY Sertraline [Zoloft] 100 mg PO HS OXcarbazepine [Trileptal] 300 mg PO AC-BID OXcarbazepine [Trileptal] 150 mg PO HS Omeprazole [PriLOSEC] 20 mg PO BID Nitroglycerin Sl Tabs [Nitrostat] 0.4 mg SUBLINGUAL Q5M PRN PRN Reason: Chest Pain LORazepam [Ativan] 0.5 mg PO HS Cholecalciferol [Vitamin D3 (25 Mcg = 1000 Iu)] 25 mcg PO DAILY polyethylene glycoL 3350 [Miralax] 17 gm PO DAILY PRN PRN Reason: Constipation LORazepam [Ativan] 0.5 mg PO Q8H PRN PRN Reason: Anxiety Changed amLODIPine [Norvasc] 5 mg PO DAILY #0 Discontinued lisinopriL [Zestril] 10 mg PO QAM nadoloL 40 mg PO BID Discharge Medication List Apixaban [Eliquis] 2.5 mg PO BID 10/26/13 [History] Brimonidine Tartrate/Timolol [Combigan 0.2%/0.5% Ophth Soln] 1 drop BOTH EYES BID 10/26/13 [History] metFORMIN HCL [Glucophage] 500 mg PO BID 10/26/13 [History] lamoTRIgine [LaMICtal] 200 mg PO BID 11/26/14 [History] Calcium Carbonate [Calcium] 600 mg PO DAILY 08/05/16 [History] Sertraline [Zoloft] 100 mg PO HS 05/04/18 [History] OXcarbazepine [Trileptal] 150 mg PO HS 05/07/20 [History] OXcarbazepine [Trileptal] 300 mg PO AC-BID 05/07/20 [History] Omeprazole [PriLOSEC] 20 mg PO BID 05/07/20 [History] polyethylene glycoL 3350 [Miralax] 17 gm PO DAILY PRN 05/31/21 [History] Nitroglycerin Sl Tabs [Nitrostat] 0.4 mg SUBLINGUAL Q5M PRN 10/04/21 [History] Cholecalciferol [Vitamin D3 (25 Mcg = 1000 Iu)] 25 mcg PO DAILY 10/18/23 [History] LORazepam [Ativan] 0.5 mg PO HS 10/18/23 [History] LORazepam [Ativan] 0.5 mg PO Q8H PRN 10/18/23 [History] Isosorbide Mononitrate ER [Imdur] 30 mg PO DAILY #30 tab 10/19/23 [Rx] Lisinopril-Hctz 10-12.5 mg [Zestoretic 10-12.5] 1 each PO BID #60 tab 10/19/23 [Rx] Metoprolol Tartrate [Lopressor] 50 mg PO BID #60 tab 10/19/23 [Rx] amLODIPine [Norvasc] 5 mg PO DAILY #0 10/19/23 [Rx] Follow up Appointment(s)/Referral(s): [facility] [Other] - 10/27/23 2:00 pm Andry Hoyt DO [Primary Care Provider] - 1-2 days [facility] Visiting Nurse, [NON-STAFF] - As Needed Patient Instructions/Handouts: Dehydration (ED) Discharge Disposition: HOME SELF-CARE
--- NOTE | 2023-10-20 10:18 | CA ---
Transthoracic Echo Report Name: Shakira Rubin Age: 87 Gender: F : 1935 Exam Date: 10/19/2023 09:22 Exam Location: [facility] Ht (in): 65 Wt (lb): 145 Ordering Physician: Shantal Rashid MD ([id number]) Attending/Referring Phys: Varnisher Apprentice Simran Main RDCS Procedure CPT: Indications: Assess LV Function Cardiac Hx: Technical Quality: Fair Contrast 1: Total Dose (mL): Contrast 2: Total Dose (mL): MEASUREMENTS (Male / Female) Normal Values 2D ECHO LV Diastolic Diameter PLAX 3.7 cm 4.2 - 5.9 / 3.9 - 5.3 cm LV Systolic Diameter PLAX 2.8 cm IVS Diastolic Thickness 1.6 cm 0.6 - 1.0 / 0.6 - 0.9 cm LVPW Diastolic Thickness 1.3 cm 0.6 - 1.0 / 0.6 - 0.9 cm LV Relative Wall Thickness 0.8 RV Internal Dim ED PLAX 3.9 cm LV Diastolic Volume MOD BP 68.0 cm??? 67 - 155 / 56 - 104 cm??? LV Systolic Volume MOD BP 35.7 cm??? 22 - 58 / 19 - 49 cm??? LV Ejection Fraction MOD BP 47.5 % >= 55 % LV Cardiac Index MOD BP 1331.7 cm???/min???m??? LV Diastolic Volume MOD 4C 57.2 cm??? LV Systolic Volume MOD 4C 24.7 cm??? LV Ejection Fraction MOD 4C 56.8 % LV Cardiac Index MOD 4C 1339.3 cm???/min???m??? LV Diastolic Length 4C 6.4 cm LV Systolic Length 4C 5.9 cm LV Diastolic Volume MOD 2C 72.6 cm??? LV Systolic Volume MOD 2C 42.5 cm??? LV Ejection Fraction MOD 2C 41.4 % LV Cardiac Index MOD 2C 1239.9 cm???/min???m??? LV Diastolic Length 2C 7.3 cm LV Systolic Length 2C 7.3 cm LA Volume 109.7 cm??? 18 - 58 / 22 - 52 cm??? LA Volume Index 62.8 cm???/m??? 16 - 28 cm???/m??? M-MODE Aortic Root Diameter MM 3.1 cm LA Systolic Diameter MM 4.7 cm LA Ao Ratio MM 1.5 AV Cusp Separation MM 1.9 cm DOPPLER AV Peak Velocity 145.0 cm/s AV Peak Gradient 8.4 mmHg AV Mean Velocity 106.6 cm/s AV Mean Gradient 5.0 mmHg AV Velocity Time Integral 33.7 cm LVOT Peak Velocity 83.3 cm/s LVOT Peak Gradient 2.8 mmHg LVOT Velocity Time Integral 19.8 cm MV Area PHT 4.8 cm??? Mitral E Point Velocity 117.5 cm/s Mitral A Point Velocity 0.3 cm/s Mitral E to A Ratio 390.1 MV Deceleration Time 159.4 ms TR Peak Velocity 303.8 cm/s TR Peak Gradient 36.9 mmHg Right Ventricular Systolic Press 42.0 mmHg FINDINGS Left Ventricle Mildly increased left ventricular wall thickness. Left ventricular cavity size normal. Left ventricular ejection fraction is estimated at 50 %. Mildly decreased left ventricular ejection fraction. Right Ventricle Right ventricular dilatation. Mild pulmonary hypertension. Right ventricular systolic pressure estimated at 42 mm hg. Right Atrium Severe right atrial dilatation. Left Atrium Severely increased left atrial volume. Mildly increased left atrial area. Mitral Valve Structurally normal mitral valve. Moderate mitral annular calcification. Mitral valve thickened. [id number] mitral regurgitation. Aortic Valve Trileaflet aortic valve. No aortic valve stenosis or regurgitation. Aortic valve sclerosis. Tricuspid Valve Structurally normal tricuspid valve. Mild tricuspid regurgitation. Pulmonic Valve Structurally normal pulmonic valve. Pericardium No pericardial effusion. Aorta Normal size aortic root and proximal ascending aorta. CONCLUSIONS Normal LV size and fair systolic function. Right ventricle is enlarged mild pulmonary hypertension. Mitral annular calcification and aortic valve sclerosis without restriction. No pericardial effusion. Previewed by: Dr. Shantal Rashid MD (Electronically Signed) Final Date: 20 Oct 2023 10:17
== END 2023-10-19 12:00 | disposition home or self-care (01) ==
LOC: EC 20:10 → 6NMEDSUR 23:04
PROVIDERS: ADMIT Hospitalist; ATTEND Hospitalist
DX: R07.89 Other chest pain (principal); R03.1 Nonspecific low blood-pressure reading; E86.0 Dehydration; I48.19 Other persistent atrial fibrillation; I10 Essential (primary) hypertension; K21.9 Gastro-esophageal reflux disease without esophagitis; E78.5 Hyperlipidemia, unspecified; E11.40 Type 2 diabetes mellitus with diabetic neuropathy, unspecified; G40.909 Epilepsy, unspecified, not intractable, without status epilepticus; H91.90 Unspecified hearing loss, unspecified ear; G20.A1 Parkinson's disease without dyskinesia, without mention of fluctuations; G30.0 Alzheimer's disease with early onset; F02.80 Dementia in other diseases classified elsewhere, unspecified severity, without behavioral disturbance, psychotic disturbance, mood disturbance, and anxiety; R79.9 Abnormal finding of blood chemistry, unspecified; R26.9 Unspecified abnormalities of gait and mobility; F32.A Depression, unspecified; F41.9 Anxiety disorder, unspecified; Z66 Do not resuscitate; Z79.01 Long term (current) use of anticoagulants; Z79.84 Long term (current) use of oral hypoglycemic drugs; Z79.899 Other long term (current) drug therapy; Z88.0 Allergy status to penicillin; Z88.1 Allergy status to other antibiotic agents; Z88.2 Allergy status to sulfonamides; Z88.8 Allergy status to other drugs, medicaments and biological substances
CPT/HCPCS: 96361 ×2; 96374; 99285; 36415; 93005; 93306; 97162; 85379; 80053 ×2; 83605 ×2; 83735 ×2; 84100 ×2; 84484 ×2; 85025 ×2; 85610; 85730; 81001; G0378 ×3; C9113

== ENCOUNTER 2023-11-08 09:26 | Day surgery (SDC) | payer MEDICARE, OTHER ==
[~2023-11-08 09:26] MED LIST changes: -LACTATED RINGERS 1,000 ML IV SCH
[2023-11-08 10:05] LABS: Glucose,Whole Blood 122 mg/dL (70-110)
[2023-11-08] MEDS: IV FLUID CONTINUATION 1,000 ML IV ONE (10:05)
[2023-11-08] MEDS: LACTATED RINGERS 1,000 ML IV SCH (10:05)
[2023-11-08 10:08] VITALS: TEMP 97.3
[2023-11-08] MEDS ORDERED: PROPOFOL 10 MG/ML 20 ML VIAL IV ONE (10:14)
[2023-11-08] MEDS ORDERED: LIDOCAINE 1% INJ 10MG/ML (20 ML MDV) ONE (10:14)
--- NOTE | 2023-11-08 10:23 | P.PCN ---
Date of Procedure: 11/08/23 Procedure(s) Performed: BRIEF HISTORY: Patient is a 79-year-old, pleasant, white female scheduled for an upper endoscopy as a part evaluation of intermittent dysphagia to solids for the last 2 months. She was diagnosed with esophageal stricture and has been having. Upper endoscopy with dilation the last 1 in December 2022.. PROCEDURE PERFORMED: Esophagogastroduodenoscopy with dilation. PREOPERATIVE DIAGNOSIS: Progressive dysphagia to solids and history of esophageal stricture. IV sedation per anesthesia. PROCEDURE: After informed consent was obtained, the patient was brought into the endoscopy unit. IV sedation was administered by Anesthesia under continuous monitoring. Initially the Olympus GIF-140 video endoscope was inserted into the mouth. Esophagus intubated without any difficulty. It was gradually advanced into the esophagus under. Tight stricture identified. With gentle manipulation I was able to advance the scope into the stomach and duodenum and carefully examined. The bulb and the second part of the duodenum appeared normal. The scope at this time was withdrawn to the stomach, adequately insufflated with air, and upon careful examination, mucosa of the antrum, body, diffuse gastritis. Mucosa cardia and the fundus appeared normal. The scope was then withdrawn into the esophagus. Hiatal hernia noted. The GE junction was located at 39 cm from the incisors. At this time balloon dilation was performed using 12 and 13.5 mm TTS balloon in a sequential fashion for 30 seconds. Following this there was mucosal tear with oozing identified at the site of dilation. The rest of the esophagus appeared normal. There were no erosions or ulcerations seen and the patient tolerated the procedure well. IMPRESSION: 1. Distal esophageal stricture status post balloon dilation 12 to 13.5 mm TTS balloon as described above. 2. Small hiatal hernia RECOMMENDATIONS: The findings of this examination were discussed with the patient as well as her family. She was advised against a liquid diet for 2 hours. Continue with omeprazole 20 mg daily and follow antireflux measures.. Follow-up in the office in 6 months
[2023-11-08] MEDS: IV FLUID CONTINUATION 800 ML IV ONE (10:37)
[2023-11-08 10:39] VITALS: RESP 16
[2023-11-08 10:42] VITALS: BP 137/82; PULSE 59
== END 2023-11-08 11:01 | disposition home or self-care (01) ==
LOC: ORWHC2ENDO 09:26
PROVIDERS: ATTEND Internal Medicine Gastroenterology
DX: K22.2 Esophageal obstruction (principal); K44.9 Diaphragmatic hernia without obstruction or gangrene; I48.91 Unspecified atrial fibrillation; I10 Essential (primary) hypertension; E78.5 Hyperlipidemia, unspecified; E11.9 Type 2 diabetes mellitus without complications; F03.90 Unspecified dementia, unspecified severity, without behavioral disturbance, psychotic disturbance, mood disturbance, and anxiety; K21.9 Gastro-esophageal reflux disease without esophagitis; Z79.84 Long term (current) use of oral hypoglycemic drugs; Z79.899 Other long term (current) drug therapy; Z88.0 Allergy status to penicillin; Z88.2 Allergy status to sulfonamides; Z88.8 Allergy status to other drugs, medicaments and biological substances; Z88.1 Allergy status to other antibiotic agents
CPT/HCPCS: 43249; J2001; J2704; C1726

== ENCOUNTER 2024-03-06 10:51 | Day surgery (SDC) | payer MEDICARE, OTHER ==
[2024-03-06] MEDS ORDERED: LIDOCAINE 1% (10MG/ML) FOR IV START INTRADERMA PRN (11:04)
[2024-03-06 11:21] VITALS: RESP 16; TEMP 97.8
[2024-03-06] MEDS: IV FLUID CONTINUATION 1,000 ML IV ONE (11:21)
[2024-03-06 11:29] LABS: Glucose,Whole Blood 137 mg/dL (70-110)
[2024-03-06] MEDS: LACTATED RINGERS 1,000 ML IV SCH (11:29)
[2024-03-06] MEDS ORDERED: LIDOCAINE 1% INJ 10MG/ML (20 ML MDV) ONE (12:14)
[2024-03-06] MEDS ORDERED: PROPOFOL 10 MG/ML 20 ML VIAL IV ONE (12:14)
--- NOTE | 2024-03-06 12:26 | P.PCN ---
Date of Procedure: 03/06/24 Procedure(s) Performed: BRIEF HISTORY: Patient is a 88-year-old, pleasant, white female scheduled and of anoscopy as a part evaluation of dysphagia and history of esophageal stricture. Last EGD with dilation was done in October 2023.. PROCEDURE PERFORMED: Esophagogastroduodenoscopy. PREOPERATIVE DIAGNOSIS: Dysphagia and history of esophageal stricture. IV sedation per anesthesia. PROCEDURE: After informed consent was obtained, the patient was brought into the endoscopy unit. IV sedation was administered by Anesthesia under continuous monitoring. Initially the Olympus GIF-140 video endoscope was inserted into the mouth. Esophagus intubated without any difficulty. It was gradually advanced into the stomach and duodenum and carefully examined. The bulb and the second part of the duodenum appeared normal. The scope at this time was withdrawn to the stomach, adequately insufflated with air, and upon careful examination, mucosa of the antrum, diffuse gastritis. Mucosa of the body, cardia and the fundus appeared normal. The scope was then withdrawn into the esophagus. Hiatal hernia noted. There was a tight distal esophageal stricture identified and this was dilated using 12 and 13.5 mm TTS balloon for 30 seconds as described above. There was a mucosal tear with oozing identified and hence further dilation was not performed. The GE junction was located at 39 cm from the incisors. The esophagus appeared normal. There were no erosions or ulcerations seen and the patient tolerated the procedure well. IMPRESSION: 1. Tight distal esophageal stricture status post balloon dilation using 12 and 30.5 mm TTS balloon. 2. Small hiatal hernia 3. Diffuse antral gastritis. RECOMMENDATIONS: The findings of this examination were discussed with the patient as well as her family. She will remain on clear liquids for 2 hours. Increase omeprazole to 20 mg twice daily and follow antireflux measures
[2024-03-06 12:45] VITALS: BP 105/64; PULSE 60
== END 2024-03-06 13:00 | disposition home or self-care (01) ==
LOC: ORWHC2ENDO 10:51
PROVIDERS: ATTEND Internal Medicine Gastroenterology
CPT/HCPCS: 43249